=== PATIENT | female | born 1995 | race Caucasian/White ===

== ENCOUNTER 2022-06-06 09:26 | Emergency (ER) | payer OTHER ==
[2022-06-06 10:51] LABS: BASOPHILS % (AUTO) 0.6 %; EOSINOPHILS # (AUTO) 0.2 10^3/uL (0.0-0.7); EOSINOPHILS % (AUTO) 2.1 %; HCT - HEMATOCRIT 42.8 % (37.0-47.0); HGB - HEMOGLOBIN 13.6 g/dL (12.0-16.0); LYMPHOCYTES # (AUTO) 1.9 10^3/uL (1.5-3.5); LYMPHOCYTES % (AUTO) 26.2 %; MEAN CORPUSCULAR HEMOGLOBIN 28.2 pg (27.0-31.0); MEAN CORPUSCULAR HGB CONC 31.8 g/dL (32.0-36.0); MEAN CORPUSCULAR VOLUME 88.8 fL (81.0-99.0); MEAN PLATELET VOLUME 9.5 fL (7.9-10.8); MONOCYTES # (AUTO) 0.5 10^3/uL (0.0-1.0); MONOCYTES % (AUTO) 6.2 %; NEUTROPHILS # (AUTO) 4.7 10^3/uL (1.5-6.6); NEUTROPHILS % (AUTO) 64.8 %; PLT - PLATELET COUNT 277 10^3/uL (130-450); RED BLOOD COUNT 4.82 10^6/uL (4.20-5.40); RED CELL DISTRIBUTION WIDTH 11.7 % (12.0-15.0); WHITE BLOOD COUNT 7.2 x10^3/uL (4.8-10.8)
[2022-06-06 11:06] LABS: ALBUMIN 4.5 g/dL (3.2-5.5); ALBUMIN/GLOBULIN RATIO 1.5 (1.0-2.2); BILIRUBIN,TOTAL 0.5 mg/dL (0.2-1.0); CALCIUM 9.5 mg/dL (8.5-10.3); CREATININE 0.7 mg/dL (0.4-1.0); POTASSIUM 3.8 mmol/L (3.5-5.0); TOTAL PROTEIN 7.5 g/dL (6.7-8.2)
[2022-06-06] MEDS ORDERED: SUMAtriptan 6 MG/0.5 ML VIAL SUBQ STA (11:42)
--- NOTE | 2022-06-06 11:44 | ED Physician Documentation ---
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 Started Tuesday afternoon. She is never had this before. It is associated with a mild headache, milder than her usual migraines. She notes no nausea with this. No light sensitivity. She had numbness and tingling of all 4 extremities which is better now. There is no asymmetry to any of those symptoms. 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 She has noted some very dry skin and scalp lately. Last thyroid testing in September of this year and normal. Review of Systems Constitutional: denies: Fever, Chills, Fatigue Eyes: denies: Loss of vision, Decreased vision, Photophobia, Discharge, Irritation Nose: denies: Rhinorrhea / runny nose, Congestion Cardiac: denies: Chest pain / pressure, Palpitations Respiratory: denies: Dyspnea, Cough GI: denies: Abdominal Pain, Nausea, Diarrhea PD PAST MEDICAL HISTORY - Allergies Allergies/Adverse Reactions: Allergies Allergy/AdvReac Type Severity Reaction Status Date / Time Penicillins Allergy Rash Verified 06/06/22 09:39 PD ED PE NORMAL - Vitals Vital signs reviewed: Yes - General General: Alert and oriented X 3, No acute distress - HEENT HEENT: PERRL, EOMI - Neck Neck: Supple, no meningeal sign, No bony TTP - Cardiac Cardiac: RRR, No murmur - Respiratory Respiratory: No respiratory distress, Clear bilaterally - Abdomen Abdomen: Non tender - Back Back: No CVA TTP, No spinal TTP - Derm Derm: Normal color, Warm and dry - Extremities Extremities: No deformity, No tenderness to palpate, Normal ROM s pain, No edema, No calf tenderness / cord - Neuro Neuro: Alert and oriented X 3, 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, No motor deficit, No sensory deficit, Other (NIH stroke scale of 0) Eye Opening: Spontaneous Motor: Obeys Commands Verbal: Oriented GCS Score: 15 Results - Vitals Vitals: Vital Signs - 24 hr 06/06/22 06/06/22 09:36 11:39 Temperature 36.4 C L Heart Rate 78 82 Respiratory 16 18 Rate Blood Pressure 112/68 104/55 L O2 Saturation 100 100 Oxygen O2 Source Room air - EKG (time done) 1223 Rate: Rate (enter#) (61) Rhythm: NSR [place]: Normal Intervals: Normal [place] QRS: Normal Ischemia: Normal ST segments - Labs Labs: Laboratory Tests 06/06/22 06/06/22 06/06/22 10:26 10:26 10:26 WBC 7.2 RBC 4.82 Hgb 13.6 Hct 42.8 MCV 88.8 MCH 28.2 MCHC 31.8 L RDW 11.7 L Plt Count 277 MPV 9.5 Neut # (Auto) 4.7 Lymph # (Auto) 1.9 [place] # (Auto) 0.5 Eos # (Auto) 0.2 Baso # (Auto) 0.0 Absolute Nucleated RBC 0.00 Nucleated RBC % 0.0 Sodium 140 Potassium 3.8 Chloride 109 Carbon Dioxide 23 Anion Gap 8.0 BUN 8 Creatinine 0.7 Estimated GFR (MDRD) 101 Glucose 96 Calcium 9.5 Total Bilirubin 0.5 AST 17 ALT 22 Alkaline Phosphatase 69 Troponin I High Sens < 2.3 L Total Protein 7.5 Albumin 4.5 Globulin 3.0 Albumin/Globulin Ratio 1.5 Lipase 30 TSH Urine HCG, Qual 06/06/22 06/06/22 10:46 11:00 WBC RBC Hgb Hct MCV MCH MCHC RDW Plt Count MPV Neut # (Auto) Lymph # (Auto) [place] # (Auto) Eos # (Auto) Baso # (Auto) Absolute Nucleated RBC Nucleated RBC % Sodium Potassium Chloride Carbon Dioxide Anion Gap BUN Creatinine Estimated GFR (MDRD) Glucose Calcium Total Bilirubin AST ALT Alkaline Phosphatase Troponin I High Sens Total Protein Albumin Globulin Albumin/Globulin Ratio Lipase TSH 1.22 Urine HCG, Qual NEGATIVE PD MEDICAL DECISION MAKING - ED course ED course: 27-year-old with history of migraines presents with mild headache, disequilibrium, shakiness, and other odd nonlateralizing complaints. This is in the setting of a fairly normal exam. CT imaging of the head was normal as is lab work including thyroid function. We trialed some Imitrex thinking this may be an atypical migraine and on recheck at 12:45 PM she was feeling much better albeit not quite 100% relieved. She was able to walk normally without ataxia and unassisted. Departure - Departure Disposition: 01 Home, Self Care Clinical Impression: Vestibular migraine Condition: Good Record reviewed to determine appropriate education?: Yes Instructions: ED Headache Migraine Comments: As discussed, the negative work-up, normal exam, and response to Imitrex would suggest that this was an atypical vestibular migraine. Return for new or worsening symptoms, follow-up with your primary care physician, next available appointment.
[2022-06-06 11:58] LABS: HCG UR QUAL NEGATIVE
--- NOTE | 2022-06-06 12:39 | CT Report ---
PROCEDURE: CT brain without contrast INDICATIONS: dizziness TECHNIQUE: Noncontrast 4.5 mm thick angled axial sections acquired from the foramen magnum to the vertex. For r adiation dose reduction, the following was used: automated exposure control, adjustment of mA and/or kV according to patient size. COMPARISON: None. FINDINGS: Image quality: Excellent. CSF spaces: Basal cisterns are patent. No extra-axial fluid collections. Ventricles are normal in size and shape. Brain: No midline shift. No intracranial masses or hemorrhage. Disla-white matter interface is norm al. Skull and face: Calvarium and visualized facial bones are intact, without suspicious lesions. Sinuses: Visualized sinuses and mastoids are clear. IMPRESSION: Normal CT of the brain Reviewed by: Jim Staley MD on 06/06/2022 11:38 AM [facility] Approved by: Jim Staley MD on 06/06/2022 11:38 AM [facility] Station ID: [id number]
[2022-06-06 13:11] VITALS: BP 107/58
== END 2022-06-06 13:10 | disposition home or self-care (01) ==
LOC: ED 09:26
DX: G43.809 Other migraine, not intractable, without status migrainosus (principal)
CPT/HCPCS: 36415; 80053; 81025; 83690; 84443; 84484; 85025; 93005; 96372; 99282; 99284

== ENCOUNTER 2022-06-11 13:18 | Emergency (ER) | payer OTHER ==
[2022-06-11] MEDS ORDERED: CHERRY SYRUP 10 ML UDC PO ONE (13:48)
[2022-06-11] MEDS ORDERED: PSEUDOEPHEDRINE 30 MG TABLET PO STA (13:48)
[2022-06-11] MEDS ORDERED: DEXAMETHASONE 10 MG/ML VIAL PO STA (13:48)
--- NOTE | 2022-06-11 13:53 | ED Physician Documentation ---
History of Present Illness - Stated complaint Stated Complaint: EXTREME DIZZINESS - Chief complaint Chief Complaint: Neuro - History obtained from History obtained from: Patient, Family - History of Present Illness Timing: Today Pain level max: 0 Pain level now: 0 - Additonal information Additional information: Patient is a 27-year-old female who presents to the emergency department complaining of feeling dizzy and off balance. This been ongoing for about the past week. She was seen here previously for similar symptoms. No acute findings on laboratory testing or head CT. Her symptoms improved with Imitrex, thought to be possible vestibular migraine. Patient does have a history of migraines. She states that the feeling of disequilibrium has not improved. She was also placed on meclizine, Valium and her doctor started her on Lexapro yesterday for anxiety. She denies any trauma. No recent illnesses. She does state that her ears feel "full". She feels that she can feel her ears full down to her throat. No chest pain. No shortness of breath. No nausea or vomiting. She had a headache last night, took Imitrex and the headache went away, but the disequilibrium has persisted. She also feels tingling in her bilateral hands and feet. No focal numbness or weakness. No difficulty with speech. No vision changes. Review of Systems Constitutional: denies: Fever, Chills Respiratory: denies: Cough GI: denies: Vomiting, Diarrhea Skin: denies: Rash Musculoskeletal: denies: Neck pain, Back pain Neurologic: denies: Headache PD PAST MEDICAL HISTORY - Past Medical History Past Medical History: No - Past Surgical History Past Surgical History: No - Present Medications Home Medications: Ambulatory Orders Medication Instructions Recorded Confirmed Cetirizine HCl/Pseudoephedrine 1 each PO BID PRN #30 tab 06/11/22 [Zyrtec-D Tablet] predniSONE [Deltasone] 40 mg PO DAILY #10 tablet 06/11/22 - Allergies Allergies/Adverse Reactions: Allergies Allergy/AdvReac Type Severity Reaction Status Date / Time Penicillins Allergy Rash Verified 06/06/22 09:39 - Living Situation Living Situation: reports: With family Living Arrangement: reports: At home - Social History Does the pt smoke?: No Does the pt have substance abuse?: No - Family History Family history: reports: Non contributory PD ED PE NORMAL - Vitals Vital signs reviewed: Yes - General General: Alert and oriented X 3, No acute distress, Well developed/nourished - HEENT HEENT: Atraumatic, PERRL, EOMI, Ears normal, Moist mucous membranes, Pharynx benign - Neck Neck: Supple, no meningeal sign, No bony TTP - Cardiac Cardiac: RRR, No murmur, Strong equal pulses - Respiratory Respiratory: No respiratory distress, Clear bilaterally - Abdomen Abdomen: Soft, Non tender, Non distended - Back Back: No CVA TTP, No spinal TTP - Derm Derm: Warm and dry - Extremities Extremities: No edema, No calf tenderness / cord - Neuro Neuro: Alert and oriented X 3, 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 Normal [id number]. Negative Romberg. No nystagmus. Negative Hallpike) Eye Opening: Spontaneous Motor: Obeys Commands Verbal: Oriented GCS Score: 15 - Psych Psych: Normal mood, Normal affect Results - Vitals Vitals: Vital Signs - 24 hr 06/11/22 06/11/22 13:24 15:00 Temperature 36.5 C Heart Rate 73 Heart Rate [ 81 Standing] Heart Rate [ 67 Supine] Respiratory 18 Rate Blood Pressure 117/59 L Blood Pressure 116/80 [Standing] Blood Pressure 116/77 [Supine] O2 Saturation 100 Oxygen O2 Source Room air - Labs Labs: Laboratory Tests 06/11/22 06/11/22 06/11/22 13:58 13:58 13:58 WBC 6.4 RBC 4.76 Hgb 13.6 Hct 42.0 MCV 88.2 MCH 28.6 MCHC 32.4 RDW 11.5 L Plt Count 278 MPV 9.7 Neut # (Auto) 3.2 Lymph # (Auto) 2.4 [place] # (Auto) 0.5 Eos # (Auto) 0.2 Baso # (Auto) 0.1 Absolute Nucleated RBC 0.00 Nucleated RBC % 0.0 Sodium 133 L Potassium 3.9 Chloride 100 L Carbon Dioxide 25 Anion Gap 8.0 BUN 14 Creatinine 0.8 Estimated GFR (MDRD) 87 L Glucose 90 Calcium 9.3 Phosphorus 4.3 Magnesium 1.9 Total Bilirubin 0.4 AST 16 ALT 20 Alkaline Phosphatase 72 Total Protein 7.1 Albumin 4.3 Globulin 2.8 Albumin/Globulin Ratio 1.5 TSH 0.63 Urine Color Urine Clarity Urine pH Ur Specific [place] Urine Protein Urine Glucose (UA) Urine Ketones Urine Occult Blood Urine Nitrite Urine Bilirubin Urine Urobilinogen Ur Leukocyte Esterase Ur Microscopic Review Urine Culture Comments Urine HCG, Qual Urine Opiates Screen Ur Oxycodone Screen Urine Methadone Screen Ur Propoxyphene Screen Ur Barbiturates Screen Ur Tricyclics Screen Ur Phencyclidine Scrn Ur Amphetamine Screen U Methamphetamines Scrn U Benzodiazepines Scrn Urine Cocaine Screen U Cannabinoids Screen 06/11/22 06/11/22 14:10 14:10 WBC RBC Hgb Hct MCV MCH MCHC RDW Plt Count MPV Neut # (Auto) Lymph # (Auto) [place] # (Auto) Eos # (Auto) Baso # (Auto) Absolute Nucleated RBC Nucleated RBC % Sodium Potassium Chloride Carbon Dioxide Anion Gap BUN Creatinine Estimated GFR (MDRD) Glucose Calcium Phosphorus Magnesium Total Bilirubin AST ALT Alkaline Phosphatase Total Protein Albumin Globulin Albumin/Globulin Ratio TSH Urine Color YELLOW Urine Clarity CLEAR Urine pH 6.0 Ur Specific [place] 1.025 Urine Protein NEGATIVE Urine Glucose (UA) NEGATIVE Urine Ketones NEGATIVE Urine Occult Blood NEGATIVE Urine Nitrite NEGATIVE Urine Bilirubin NEGATIVE Urine Urobilinogen 0.2 (NORMAL) Ur Leukocyte Esterase NEGATIVE Ur Microscopic Review NOT INDICATED Urine Culture Comments NOT INDICATED Urine HCG, Qual NEGATIVE Urine Opiates Screen NEGATIVE Ur Oxycodone Screen NEGATIVE Urine Methadone Screen NEGATIVE Ur Propoxyphene Screen NEGATIVE Ur Barbiturates Screen NEGATIVE Ur Tricyclics Screen NEGATIVE Ur Phencyclidine Scrn NEGATIVE Ur Amphetamine Screen NEGATIVE U Methamphetamines Scrn NEGATIVE U Benzodiazepines Scrn POSITIVE H Urine Cocaine Screen NEGATIVE U Cannabinoids Screen NEGATIVE PD MEDICAL DECISION MAKING - ED course Complexity details: reviewed old records, reviewed results, re-evaluated patient, considered differential, d/w patient, d/w family ED course: Normal gait. Normal cerebellar test. Patient has symptoms that appear more consistent with disequilibrium than vertigo. MRI is unavailable today due to use of paving in front of the machine in the parking lot. Patient will likely need an MRI for further evaluation of her symptoms. Possible eustachian tube dysfunction as she does feel a fullness in her ears and throat. We will trial on pseudoephedrine, Zyrtec and dexamethasone. Patient will return tomorrow for MRI of the brain. No focal neurological deficits. Patient counseled regarding signs and symptoms for which I believe and urgent re-evaluation would be necessary. Patient with good understanding of and agreement to plan and is comfortable going home at this time This document was made in part using voice recognition software. While efforts are made to proofread this document, sound alike and grammatical errors may occur. Departure - Departure Disposition: 01 Home, Self Care Clinical Impression: Dysequilibrium Condition: Good Instructions: ED Dizziness [facility] Follow-Up: Vin Nelson ARNP [Primary Care Provider] - Prescriptions: predniSONE [Deltasone] 40 mg PO DAILY #10 tablet Cetirizine HCl/Pseudoephedrine [Zyrtec-D Tablet] 1 each PO BID PRN #30 tab PRN Reason: nasal congestion Comments: The cause of your symptoms is unclear today. Your symptoms seem more consistent with disequilibrium than true vertigo. It is recommended that you have an MRI tomorrow. Please return for this. As we discussed unfortunately the MRI is unavailable today. We will trial you on medication for your eustachian tubes and see if this helps your symptoms. Your prescriptions were sent to [facility] in [place]. Discharge Date/Time: 06/11/22 15:30
--- OUTSIDE RECORDS SUMMARY | 2022-06-11 13:53 | EXTERNAL MEDICAL SUMMARY RPT | Continuity of Care Document ---
:1995 Author Organization [facility] [address] [place] [address] Phone Care Team Providers Name Role Phone Jacquleine Chago Unavailable Unavailable Vin Nelson Unavailable Unavailable Allergies and Intolerances date description facility type (no date) [facility] (unknown) Encounters No information. Functional Status No information. Immunizations No information. Medications date description facility [id number] Sumatriptan [facility] [id number] Sumatriptan [facility] [id number] [facility] [id number] Escitalopram [facility] [id number] Meclizine [facility] Problems No information. Procedures date description facility +0000 MR abdomen wo/w [facility] Results/Labs test date author facility value unit interpret ation Result panel 1 (unknown) (no (unknown) (unknown) (no value) (units (unk nown) date) unknown) (unknown) (no (unknown) (unknown) [id number] (units (unkno wn) date) unknown) (unknown) (no (unknown) (unknown) 03/29/22 (units (unkno wn) date) unknown) (unknown) (no (unknown) (unknown) 12:18 (units (unkno wn) date) unknown) (unknown) (no (unknown) (unknown) Accompanied by: (units (unknown) date) Self / Same As unknown) Patient (unknown) (no (unknown) (unknown) Age/Sex: 26 / F (units (unknown) date) Date of Service: unknown) (unknown) (no (unknown) (unknown) Allergies (units (unkn own) date) unknown) (unknown) (no (unknown) (unknown) JARED Garcia (units ( unknown) date) [id number] unknown) (unknown) (no (unknown) (unknown) Attending Dr: (units ( unknown) date) Vin HUBER unknown) (unknown) (no (unknown) (unknown) BMI 24.5 (units (unkno wn) date) unknown) (unknown) (no (unknown) (unknown) Back pain, (units (unk nown) date) lumbosacral unknown) (unknown) (no (unknown) (unknown) Confirmed (units (unkn own) date) 03/29/22] unknown) (unknown) (no (unknown) (unknown) : 1995 (units (unknown) date) Acct:[id number] unknown) (unknown) (no (unknown) (unknown) Dept at (units (unkno wn) date) . unknown) (unknown) (no (unknown) (unknown) Documented By: (units (unknown) date) Vin Nelson unknown) 03/29/22 1216 (unknown) (no (unknown) (unknown) Draft (units (unkno wn) date) unknown) (unknown) (no (unknown) (unknown) Family Practice (units (unknown) date) Office Visit unknown) (unknown) (no (unknown) (unknown) [facility] unknown) (unknown) (no (unknown) (unknown) Health (units (unkno wn) date) Management unknown) reviewed with patient: Yes (unknown) (no (unknown) (unknown) Health (units (unkno wn) date) Management unknown) (unknown) (no (unknown) (unknown) Height 5 ft 10 (units (unknown) date) in unknown) (unknown) (no (unknown) (unknown) Intake Note: (units (u nknown) date) unknown) (unknown) (no (unknown) (unknown) Intake performed (units (unknown) date) by: unknown) Sara Horne (unknown) (no (unknown) (unknown) Intake (units (unkno wn) date) unknown) (unknown) (no (unknown) (unknown) Intake- Clincial (units (unknown) date) Staff unknown) (unknown) (no (unknown) (unknown) Loc: [facility] (units (unkno wn) date) unknown) (unknown) (no (unknown) (unknown) Low back pain (units ( unknown) date) unknown) (unknown) (no (unknown) (unknown) Medical History (units (unknown) date) (Updated 01/28/22 unknown) @ 00:01 by ) (unknown) (no (unknown) (unknown) Medications (units (un known) date) unknown) (unknown) (no (unknown) (unknown) 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 (units (unkno wn) date) unknown) (unknown) (no (unknown) (unknown) PFSH (units (unkno wn) date) unknown) (unknown) (no (unknown) (unknown) Patient: (units (unkno wn) date) Linda Moreno unknown) MR#: [id number] (unknown) (no (unknown) (unknown) Penicillins (units (un known) date) Adverse Reaction unknown) (Mild, Verified 03/29/22 12:17) (unknown) (no (unknown) (unknown) Reason For Visit (units (unknown) date) unknown) (unknown) (no (unknown) (unknown) Sciatic leg pain (units (unknown) date) unknown) (unknown) (no (unknown) (unknown) Signed By: (units (unk nown) date) unknown) (unknown) (no (unknown) (unknown) Smoking Status: (units (unknown) date) Never smoker unknown) (unknown) (no (unknown) (unknown) This note may (units ( unknown) date) have been all or unknown) partially generated using voice recognition (unknown) (no (unknown) (unknown) Tobacco + (units (unkn own) date) Substance Use unknown) (unknown) (no (unknown) (unknown) Tobacco Status (units (unknown) date) unknown) (unknown) (no (unknown) (unknown) Visit Reasons: (units (unknown) date) 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 (units (unknown) date) If there are any unknown) questions, please contact the Medical Records (unknown) (no (unknown) (unknown) may occur. (units (unk nown) date) Occasional unknown) wrong-word or 'sound-alike' substitutions may have (unknown) (no (unknown) (unknown) occurred due to (units (unknown) date) the inherent unknown) limitations of voice recognition software. Please (unknown) (no (unknown) (unknown) read the note (units ( unknown) date) carefully and unknown) recognize, using context, where these substitutions (unknown) (no (unknown) (unknown) software. (units (unkn own) date) Although every unknown) effort is made to edit content, mine car dispatcher errors (unknown) (no (unknown) (unknown) sumatriptan (units (unk nown) date) succinate 25 mg unknown) tablet (Imitrex) 25 mg PO ONCE PRN 03/29/22 [History Result panel 2 (unknown) (no (unknown) (unknown) (no value) (units (unk nown) date) unknown) (unknown) (no (unknown) (unknown) [id number] (units (unkno wn) date) unknown) (unknown) (no (unknown) (unknown) 03/29/22 (units (unkno wn) date) unknown) (unknown) (no (unknown) (unknown) 12:18 (units (unkno wn) date) unknown) (unknown) (no (unknown) (unknown) Accompanied by: (units (unknown) date) Self / Same As unknown) Patient (unknown) (no (unknown) (unknown) Age/Sex: 26 / F (units (unknown) date) Date of Service: unknown) (unknown) (no (unknown) (unknown) Allergies (units (unkn own) date) unknown) (unknown) (no (unknown) (unknown) JARED Garcia (units ( unknown) date) [id number] unknown) (unknown) (no (unknown) (unknown) Attending Dr: (units ( unknown) date) Vin HUBER unknown) (unknown) (no (unknown) (unknown) BMI 24.5 (units (unkno wn) date) unknown) (unknown) (no (unknown) (unknown) BP 114/62 (units (unkn own) date) unknown) (unknown) (no (unknown) (unknown) Back pain, (units (unk nown) date) lumbosacral unknown) (unknown) (no (unknown) (unknown) Blood Pressure (units (unknown) date) Location Lt unknown) brachial (unknown) (no (unknown) (unknown) Confirmed (units (unkn own) date) 03/29/22] unknown) (unknown) (no (unknown) (unknown) : 1995 (units (unknown) date) Acct:[id number] unknown) (unknown) (no (unknown) (unknown) Dept at (units (unkno wn) date) . unknown) (unknown) (no (unknown) (unknown) Documented By: (units (unknown) date) Vin Nelson unknown) 03/29/22 1216 (unknown) (no (unknown) (unknown) Draft (units (unkno wn) date) unknown) (unknown) (no (unknown) (unknown) Family Practice (units (unknown) date) Office Visit unknown) (unknown) (no (unknown) (unknown) [facility] unknown) (unknown) (no (unknown) (unknown) Health (units (unkno wn) date) Management unknown) reviewed with patient: Yes (unknown) (no (unknown) (unknown) Health (units (unkno wn) date) Management unknown) (unknown) (no (unknown) (unknown) Height 5 ft 10 (units (unknown) date) in unknown) (unknown) (no (unknown) (unknown) Intake Note: (units (u nknown) date) unknown) (unknown) (no (unknown) (unknown) Intake performed (units (unknown) date) by: unknown) Sara Horne (unknown) (no (unknown) (unknown) Intake (units (unkno wn) date) unknown) (unknown) (no (unknown) (unknown) Intake- Clincial (units (unknown) date) Staff unknown) (unknown) (no (unknown) (unknown) Loc: [facility] (units (unkno wn) date) unknown) (unknown) (no (unknown) (unknown) Low back pain (units ( unknown) date) unknown) (unknown) (no (unknown) (unknown) Medical History (units (unknown) date) (Updated 01/28/22 unknown) @ 00:01 by ) (unknown) (no (unknown) (unknown) Medications (units (un known) date) unknown) (unknown) (no (unknown) (unknown) 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 (units (unkno wn) date) unknown) (unknown) (no (unknown) (unknown) Oxygen Delivery (units (unknown) date) Method room air unknown) (unknown) (no (unknown) (unknown) PFSH (units (unkno wn) date) unknown) (unknown) (no (unknown) (unknown) Patient: (units (unkno wn) date) Linda Moreno R unknown) MR#: [id number] (unknown) (no (unknown) (unknown) Penicillins (units (un known) date) Adverse Reaction unknown) (Mild, Verified 03/29/22 12:17) (unknown) (no (unknown) (unknown) Position Sitting (units (unknown) date) unknown) (unknown) (no (unknown) (unknown) Pulse 76 (units (unkno wn) date) unknown) (unknown) (no (unknown) (unknown) Pulse Oximetry (units (unknown) date) (%) 99 unknown) (unknown) (no (unknown) (unknown) Pulse Source (units (u nknown) date) Monitor unknown) (unknown) (no (unknown) (unknown) Reason For Visit (units (unknown) date) unknown) (unknown) (no (unknown) (unknown) Respiration 16 (units (unknown) date) unknown) (unknown) (no (unknown) (unknown) Sciatic leg pain (units (unknown) date) unknown) (unknown) (no (unknown) (unknown) Signed By: (units (unk nown) date) unknown) (unknown) (no (unknown) (unknown) Smoking Status: (units (unknown) date) Never smoker unknown) (unknown) (no (unknown) (unknown) Temp 97.2 F L (units ( unknown) date) unknown) (unknown) (no (unknown) (unknown) Temp Source (units (un known) date) Temporal Artery unknown) Scan (unknown) (no (unknown) (unknown) This note may (units ( unknown) date) have been all or unknown) partially generated using voice recognition (unknown) (no (unknown) (unknown) Tobacco + (units (unkn own) date) Substance Use unknown) (unknown) (no (unknown) (unknown) Tobacco Status (units (unknown) date) unknown) (unknown) (no (unknown) (unknown) Visit Reasons: (units (unknown) date) 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 (units (unknown) date) If there are any unknown) questions, please contact the Medical Records (unknown) (no (unknown) (unknown) may occur. (units (unk nown) date) Occasional unknown) wrong-word or 'sound-alike' substitutions may have (unknown) (no (unknown) (unknown) occurred due to (units (unknown) date) the inherent unknown) limitations of voice recognition software. Please (unknown) (no (unknown) (unknown) read the note (units ( unknown) date) carefully and unknown) recognize, using context, where these substitutions (unknown) (no (unknown) (unknown) software. (units (unkn own) date) Although every unknown) effort is made to edit content, mine car dispatcher errors (unknown) (no (unknown) (unknown) sumatriptan (units (unk nown) date) succinate 25 mg unknown) tablet (Imitrex) 25 mg PO ONCE PRN 03/29/22 [History Result panel 3 (unknown) (no (unknown) (unknown) (no value) (units (unk nown) date) unknown) (unknown) (no (unknown) (unknown) [id number] (units (unkno wn) date) unknown) (unknown) (no (unknown) (unknown) 03/29/22 (units (unkno wn) date) unknown) (unknown) (no (unknown) (unknown) 12:18 (units (unkno wn) date) unknown) (unknown) (no (unknown) (unknown) Accompanied by: (units (unknown) date) Self / Same As unknown) Patient (unknown) (no (unknown) (unknown) Age/Sex: 26 / F (units (unknown) date) Date of Service: unknown) (unknown) (no (unknown) (unknown) Allergies (units (unkn own) date) unknown) (unknown) (no (unknown) (unknown) [place], [place] (units ( unknown) date) [id number] unknown) (unknown) (no (unknown) (unknown) Attending Dr: (units ( unknown) date) Vin HUBER unknown) (unknown) (no (unknown) (unknown) BMI 24.5 (units (unkno wn) date) unknown) (unknown) (no (unknown) (unknown) BP 114/62 (units (unkn own) date) unknown) (unknown) (no (unknown) (unknown) Back pain, (units (unk nown) date) lumbosacral unknown) (unknown) (no (unknown) (unknown) Blood Pressure (units (unknown) date) Location Lt unknown) brachial (unknown) (no (unknown) (unknown) Confirmed (units (unkn own) date) 03/29/22] unknown) (unknown) (no (unknown) (unknown) : 1995 (units (unknown) date) Acct:[id number] unknown) (unknown) (no (unknown) (unknown) Dept at (units (unkno wn) date) . unknown) (unknown) (no (unknown) (unknown) Documented By: (units (unknown) date) Vin Nelson unknown) 03/29/22 1216 (unknown) (no (unknown) (unknown) Draft (units (unkno wn) date) unknown) (unknown) (no (unknown) (unknown) Family Practice (units (unknown) date) Office Visit unknown) (unknown) (no (unknown) (unknown) [facility] ([facility] date[facility] unknown) (unknown) (no (unknown) (unknown) Health (units (unkno wn) date) Management unknown) reviewed with patient: Yes (unknown) (no (unknown) (unknown) Health (units (unkno wn) date) Management unknown) (unknown) (no (unknown) (unknown) Height 5 ft 10 (units (unknown) date) in unknown) (unknown) (no (unknown) (unknown) Intake Note: (units (u nknown) date) unknown) (unknown) (no (unknown) (unknown) Intake performed (units (unknown) date) by: unknown) Zeiler,Sara M (unknown) (no (unknown) (unknown) Intake (units (unkno wn) date) unknown) (unknown) (no (unknown) (unknown) Intake- Clincial (units (unknown) date) Staff unknown) (unknown) (no (unknown) (unknown) Loc: [facility] (units (unkno wn) date) unknown) (unknown) (no (unknown) (unknown) Low back pain (units ( unknown) date) unknown) (unknown) (no (unknown) (unknown) Medical History (units (unknown) date) (Updated 01/28/22 unknown) @ 00:01 by ) (unknown) (no (unknown) (unknown) Medications (units (un known) date) unknown) (unknown) (no (unknown) (unknown) 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 (units (unkno wn) date) unknown) (unknown) (no (unknown) (unknown) Oxygen Delivery (units (unknown) date) Method room air unknown) (unknown) (no (unknown) (unknown) PFSH (units (unkno wn) date) unknown) (unknown) (no (unknown) (unknown) Patient: (units (unkno wn) date) Linda Moreno unknown) MR#: [id number] (unknown) (no (unknown) (unknown) Penicillins (units (un known) date) Adverse Reaction unknown) (Mild, Verified 03/29/22 12:17) (unknown) (no (unknown) (unknown) Position Sitting (units (unknown) date) unknown) (unknown) (no (unknown) (unknown) Pulse 76 (units (unkno wn) date) unknown) (unknown) (no (unknown) (unknown) Pulse Oximetry (units (unknown) date) (%) 99 unknown) (unknown) (no (unknown) (unknown) Pulse Source (units (u nknown) date) Monitor unknown) (unknown) (no (unknown) (unknown) Reason For Visit (units (unknown) date) unknown) (unknown) (no (unknown) (unknown) Respiration 16 (units (unknown) date) unknown) (unknown) (no (unknown) (unknown) Sciatic leg pain (units (unknown) date) unknown) (unknown) (no (unknown) (unknown) Signed By: (units (unk nown) date) unknown) (unknown) (no (unknown) (unknown) Smoking Status: (units (unknown) date) Never smoker unknown) (unknown) (no (unknown) (unknown) Temp 97.2 F L (units ( unknown) date) unknown) (unknown) (no (unknown) (unknown) Temp Source (units (un known) date) Temporal Artery unknown) Scan (unknown) (no (unknown) (unknown) This note may (units ( unknown) date) have been all or unknown) partially generated using voice recognition (unknown) (no (unknown) (unknown) Tobacco + (units (unkn own) date) Substance Use unknown) (unknown) (no (unknown) (unknown) Tobacco Status (units (unknown) date) unknown) (unknown) (no (unknown) (unknown) Visit 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 (units (unknown) date) If there are any unknown) questions, please contact the Medical Records (unknown) (no (unknown) (unknown) may occur. (units (unk nown) date) Occasional unknown) wrong-word or 'sound-alike' substitutions may have (unknown) (no (unknown) (unknown) occurred due to (units (unknown) date) the inherent unknown) limitations of voice recognition software. Please (unknown) (no (unknown) (unknown) read the note (units ( unknown) date) carefully and unknown) recognize, using context, where these substitutions (unknown) (no (unknown) (unknown) software. (units (unkn own) date) Although every unknown) effort is made to edit content, mine car dispatcher errors (unknown) (no (unknown) (unknown) sumatriptan (units (unk nown) date) succinate 25 mg unknown) tablet (Imitrex) 25 mg PO ONCE PRN 03/29/22 [History Result panel 4 (unknown) (no (unknown) (unknown) (no value) (units (unk nown) date) unknown) (unknown) (no (unknown) (unknown) [id number] (units (unkno wn) date) unknown) (unknown) (no (unknown) (unknown) 03/29/22 (units (unkno wn) date) unknown) (unknown) (no (unknown) (unknown) 12:18 (units (unkno wn) date) unknown) (unknown) (no (unknown) (unknown) Accompanied by: (units (unknown) date) Self / Same As unknown) Patient (unknown) (no (unknown) (unknown) Age/Sex: 26 / F (units (unknown) date) Date of Service: unknown) (unknown) (no (unknown) (unknown) Allergies (units (unkn own) date) unknown) (unknown) (no (unknown) (unknown) [place], [place] (units ( unknown) date) [id number] unknown) (unknown) (no (unknown) (unknown) Attending Dr: (units ( unknown) date) Vin HUBER unknown) (unknown) (no (unknown) (unknown) BMI 24.5 (units (unkno wn) date) unknown) (unknown) (no (unknown) (unknown) BP 114/62 (units (unkn own) date) unknown) (unknown) (no (unknown) (unknown) Back pain, (units (unk nown) date) lumbosacral unknown) (unknown) (no (unknown) (unknown) Blood Pressure (units (unknown) date) Location Lt unknown) brachial (unknown) (no (unknown) (unknown) Chief Complaint (units (unknown) date) unknown) (unknown) (no (unknown) (unknown) Chief Complaint: (units (unknown) date) establish care unknown) (unknown) (no (unknown) (unknown) Confirmed (units (unkn own) date) 03/29/22] unknown) (unknown) (no (unknown) (unknown) : 1995 (units (unknown) date) Acct:[id number] unknown) (unknown) (no (unknown) (unknown) Dept at (units (unkno wn) date) . unknown) (unknown) (no (unknown) (unknown) Details: (units (unkno wn) date) unknown) (unknown) (no (unknown) (unknown) Documented By: (units (unknown) date) Vin Nelson unknown) 03/29/22 1216 (unknown) (no (unknown) (unknown) Draft (units (unkno wn) date) unknown) (unknown) (no (unknown) (unknown) Family Practice (units (unknown) date) Office Visit unknown) (unknown) (no (unknown) (unknown) [facility] ([facility] date[facility] unknown) (unknown) (no (unknown) (unknown) HPI (units (unkno wn) date) unknown) (unknown) (no (unknown) (unknown) Health (units (unkno wn) date) Management unknown) reviewed with patient: Yes (unknown) (no (unknown) (unknown) Health (units (unkno wn) date) Management unknown) (unknown) (no (unknown) (unknown) Height 177.8 cm (units (unknown) date) unknown) (unknown) (no (unknown) (unknown) Intake Note: (units (u nknown) date) unknown) (unknown) (no (unknown) (unknown) Intake performed (units (unknown) date) by: unknown) Sara Horne (unknown) (no (unknown) (unknown) Intake (units (unkno wn) date) unknown) (unknown) (no (unknown) (unknown) Intake- Clincial (units (unknown) date) Staff unknown) (unknown) (no (unknown) (unknown) Loc: [facility] (units (unkno wn) date) unknown) (unknown) (no (unknown) (unknown) Low back pain (units ( unknown) date) unknown) (unknown) (no (unknown) (unknown) Medical History (units (unknown) date) (Updated 01/28/22 unknown) @ 00:01 by ) (unknown) (no (unknown) (unknown) Medications (units (un known) date) unknown) (unknown) (no (unknown) (unknown) 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 (units (unkno wn) date) unknown) (unknown) (no (unknown) (unknown) Oxygen Delivery (units (unknown) date) Method room air unknown) (unknown) (no (unknown) (unknown) PFSH (units (unkno wn) date) unknown) (unknown) (no (unknown) (unknown) Patient: (units (unkno wn) date) Linda Moreno unknown) MR#: [id number] (unknown) (no (unknown) (unknown) Penicillins (units (un known) date) Adverse Reaction unknown) (Mild, Verified 03/29/22 12:17) (unknown) (no (unknown) (unknown) Position Sitting (units (unknown) date) unknown) (unknown) (no (unknown) (unknown) Pulse 76 (units (unkno wn) date) unknown) (unknown) (no (unknown) (unknown) Pulse Oximetry (units (unknown) date) (%) 99 unknown) (unknown) (no (unknown) (unknown) Pulse Source (units (u nknown) date) Monitor unknown) (unknown) (no (unknown) (unknown) Reason For Visit (units (unknown) date) unknown) (unknown) (no (unknown) (unknown) Respiration 16 (units (unknown) date) unknown) (unknown) (no (unknown) (unknown) Sciatic leg pain (units (unknown) date) unknown) (unknown) (no (unknown) (unknown) Signed By: (units (unk nown) date) unknown) (unknown) (no (unknown) (unknown) Smoking Status: (units (unknown) date) Never smoker unknown) (unknown) (no (unknown) (unknown) Temp 97.2 F L (units ( unknown) date) unknown) (unknown) (no (unknown) (unknown) Temp Source (units (un known) date) Temporal Artery unknown) Scan (unknown) (no (unknown) (unknown) This note may (units ( unknown) date) have been all or unknown) partially generated using voice recognition (unknown) (no (unknown) (unknown) Tobacco + (units (unkn own) date) Substance Use unknown) (unknown) (no (unknown) (unknown) Tobacco Status (units (unknown) date) unknown) (unknown) (no (unknown) (unknown) 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 (units (un known) date) unknown) (unknown) (no (unknown) (unknown) dad had (units (unkno wn) date) esophageal ca. unknown) mom breast CA 57ish. (unknown) (no (unknown) (unknown) follicular (units (unk nown) date) nodule unknown) hyperplasia liver. micro bowel perf, (unknown) (no (unknown) (unknown) have occurred. (units (unknown) date) If there are any unknown) questions, please contact the Medical Records (unknown) (no (unknown) (unknown) may occur. (units (unk nown) date) Occasional unknown) wrong-word or 'sound-alike' substitutions may have (unknown) (no (unknown) (unknown) moved from [place]units (unk nown) date) [place] to here unknown) july. 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 (unknown) (no (unknown) (unknown) occurred due to (units (unknown) date) the inherent unknown) limitations of voice recognition software. Please (unknown) (no (unknown) (unknown) read the note (units ( unknown) date) carefully and unknown) recognize, using context, where these substitutions (unknown) (no (unknown) (unknown) software. (units (unkn own) date) Although every unknown) effort is made to edit content, mine car dispatcher errors (unknown) (no (unknown) (unknown) sumatriptan (units (unk nown) date) succinate 25 mg unknown) tablet (Imitrex) 25 mg PO ONCE PRN 03/29/22 [History (unknown) (no (unknown) (unknown) trying to get (units ( unknown) date) licensed. unknown) (unknown) (no (unknown) (unknown) will start (units (unk nown) date) colonoscopies unknown) earlier, breast MRI age 26. Result panel 5 (unknown) (no (unknown) (unknown) (no value) (units (unk nown) date) unknown) (unknown) (no (unknown) (unknown) [id number] (units (unkno wn) date) unknown) (unknown) (no (unknown) (unknown) 03/29/22 (units (unkno wn) date) unknown) (unknown) (no (unknown) (unknown) 12:18 (units (unkno wn) date) unknown) (unknown) (no (unknown) (unknown) Accompanied by: (units (unknown) date) Self / Same As unknown) Patient (unknown) (no (unknown) (unknown) Age/Sex: 26 / F (units (unknown) date) Date of Service: unknown) (unknown) (no (unknown) (unknown) Allergies (units (unkn own) date) unknown) (unknown) (no (unknown) (unknown) [place], [place] (units ( unknown) date) [id number] unknown) (unknown) (no (unknown) (unknown) Attending Dr: (units ( unknown) date) Vin HUBER unknown) (unknown) (no (unknown) (unknown) BMI 24.5 (units (unkno wn) date) unknown) (unknown) (no (unknown) (unknown) BP 114/62 (units (unkn own) date) unknown) (unknown) (no (unknown) (unknown) Back pain, (units (unk nown) date) lumbosacral unknown) (unknown) (no (unknown) (unknown) Blood Pressure (units (unknown) date) Location Lt unknown) brachial (unknown) (no (unknown) (unknown) Chief Complaint (units (unknown) date) unknown) (unknown) (no (unknown) (unknown) Chief Complaint: (units (unknown) date) establish care unknown) (unknown) (no (unknown) (unknown) Confirmed (units (unkn own) date) 03/29/22] unknown) (unknown) (no (unknown) (unknown) : 1995 (units (unknown) date) Acct:[id number] unknown) (unknown) (no (unknown) (unknown) Dept at (units (unkno wn) date) . unknown) (unknown) (no (unknown) (unknown) Details: (units (unkno wn) date) unknown) (unknown) (no (unknown) (unknown) Documented By: (units (unknown) date) Vin Nelson unknown) 03/29/22 1216 (unknown) (no (unknown) (unknown) Draft (units (unkno wn) date) unknown) (unknown) (no (unknown) (unknown) Family Practice (units (unknown) date) Office Visit unknown) (unknown) (no (unknown) (unknown) [facility] ([facility] unknown) (unknown) (no (unknown) (unknown) HPI (units (unkno wn) date) unknown) (unknown) (no (unknown) (unknown) Health Management (units (unknown) date) reviewed with unknown) patient: Yes (unknown) (no (unknown) (unknown) Health Management (units (unknown) date) unknown) (unknown) (no (unknown) (unknown) Height 177.8 cm (units (unknown) date) unknown) (unknown) (no (unknown) (unknown) Intake Note: (units (u nknown) date) unknown) (unknown) (no (unknown) (unknown) Intake performed (units (unknown) date) by: Sara Horne unknown) M (unknown) (no (unknown) (unknown) Intake (units (unkno wn) date) unknown) (unknown) (no (unknown) (unknown) Intake- Clincial (units (unknown) date) Staff unknown) (unknown) (no (unknown) (unknown) Loc: [facility] (units (unkno wn) date) unknown) (unknown) (no (unknown) (unknown) Low back pain (units ( unknown) date) unknown) (unknown) (no (unknown) (unknown) Medical History (units (unknown) date) (Updated 01/28/22 @ unknown) 00:01 by ) (unknown) (no (unknown) (unknown) Medications (units (un known) date) unknown) (unknown) (no (unknown) (unknown) 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 (unknown) (no (unknown) (unknown) Oxygen Delivery (units (unknown) date) Method room air unknown) (unknown) (no (unknown) (unknown) PFSH (units (unkno wn) date) unknown) (unknown) (no (unknown) (unknown) Patient: (units (unkno wn) date) Linda Moreno unknown) MR#: [id number] (unknown) (no (unknown) (unknown) Penicillins (units (un known) date) Adverse Reaction unknown) (Mild, Verified 03/29/22 12:17) (unknown) (no (unknown) (unknown) Position Sitting (units (unknown) date) unknown) (unknown) (no (unknown) (unknown) Pulse 76 (units (unkno wn) date) unknown) (unknown) (no (unknown) (unknown) Pulse Oximetry (%) (units (unknown) date) 99 unknown) (unknown) (no (unknown) (unknown) Pulse Source (units (u nknown) date) Monitor unknown) (unknown) (no (unknown) (unknown) Reason For Visit (units (unknown) date) unknown) (unknown) (no (unknown) (unknown) Respiration 16 (units (unknown) date) unknown) (unknown) (no (unknown) (unknown) Saw [facility] (units (unkno wn) date) Gastroenterology unknown) will get a liver mri for monitoring. (unknown) (no (unknown) (unknown) Sciatic leg pain (units (unknown) date) unknown) (unknown) (no (unknown) (unknown) Signed By: (units (unk nown) date) unknown) (unknown) (no (unknown) (unknown) Smoking Status: (units (unknown) date) Never smoker unknown) (unknown) (no (unknown) (unknown) Temp 97.2 F L (units ( unknown) date) unknown) (unknown) (no (unknown) (unknown) Temp Source (units (un known) date) Temporal Artery unknown) Scan (unknown) (no (unknown) (unknown) This note may have (units (unknown) date) been all or unknown) partially generated using voice recognition (unknown) (no (unknown) (unknown) Tobacco + (units (unkn own) date) Substance Use unknown) (unknown) (no (unknown) (unknown) Tobacco Status (units (unknown) date) unknown) (unknown) (no (unknown) (unknown) 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 (units (un known) date) unknown) (unknown) (no (unknown) (unknown) dad had esophageal (units (unknown) date) ca. mom breast CA unknown) 57ish. (unknown) (no (unknown) (unknown) follicular nodule (units (unknown) date) hyperplasia liver. unknown) micro bowel perf, (unknown) (no (unknown) (unknown) have occurred. If (units (unknown) date) there are any unknown) questions, please contact the Medical Records (unknown) (no (unknown) (unknown) may occur. (units (unk nown) date) Occasional unknown) wrong-word or 'sound-alike' substitutions may have (unknown) (no (unknown) (unknown) middle. (units (unkno wn) date) unknown) (unknown) (no (unknown) (unknown) moved from [place]units (unk nown) date) [place] to here unknown) july. 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 (unknown) (no (unknown) (unknown) occurred due to (units (unknown) date) the inherent unknown) limitations of voice recognition software. Please (unknown) (no (unknown) (unknown) read the note (units ( unknown) date) carefully and unknown) recognize, using context, where these substitutions (unknown) (no (unknown) (unknown) software. Although (units (unknown) date) every effort is unknown) made to edit content, mine car dispatcher errors (unknown) (no (unknown) (unknown) sometimes heavy, (units (unknown) date) sometimes not. 50 unknown) dday, 37 day, 31 day. pain typically in the (unknown) (no (unknown) (unknown) sumatriptan (units (unk nown) date) succinate 25 mg unknown) tablet (Imitrex) 25 mg PO ONCE PRN 03/29/22 [History (unknown) (no (unknown) (unknown) trying to get (units ( unknown) date) licensed. unknown) (unknown) (no (unknown) (unknown) until about 3 (units ( unknown) date) months ago: sharp unknown) pains before and after but not during menses. (unknown) (no (unknown) (unknown) went off of MARYLIN (units (unknown) date) pill 9 years, iud unknown) mirena until January 2021, horrible pain. Normal (unknown) (no (unknown) (unknown) will start (units (unk nown) date) colonoscopies unknown) earlier, breast MRI age 26. LOOK INTO THIS AND Result panel 6 (unknown) (no (unknown) (unknown) (no value) (units (unk nown) date) unknown) (unknown) (no (unknown) (unknown) (1) Dysmenorrhea: (units (unknown) date) unknown) (unknown) (no (unknown) (unknown) [id number] (units (unkno wn) date) unknown) (unknown) (no (unknown) (unknown) 03/29/22 (units (unkno wn) date) unknown) (unknown) (no (unknown) (unknown) 12:18 (units (unkno wn) date) unknown) (unknown) (no (unknown) (unknown) Accompanied by: (units (unknown) date) Self / Same As unknown) Patient (unknown) (no (unknown) (unknown) Age/Sex: 26 / F (units (unknown) date) Date of Service: unknown) (unknown) (no (unknown) (unknown) Allergies (units (unkn own) date) unknown) (unknown) (no (unknown) (unknown) [place], [place] (units ( unknown) date) [id number] unknown) (unknown) (no (unknown) (unknown) Assessment + Plan (units (unknown) date) unknown) (unknown) (no (unknown) (unknown) Attending Dr: (units ( unknown) date) Vin HUBER unknown) (unknown) (no (unknown) (unknown) BMI 24.5 (units (unkno wn) date) unknown) (unknown) (no (unknown) (unknown) BP 114/62 (units (unkn own) date) unknown) (unknown) (no (unknown) (unknown) Back pain, (units (unk nown) date) lumbosacral unknown) (unknown) (no (unknown) (unknown) Blood Pressure (units (unknown) date) Location Lt unknown) brachial (unknown) (no (unknown) (unknown) Chief Complaint (units (unknown) date) unknown) (unknown) (no (unknown) (unknown) Chief Complaint: (units (unknown) date) establish care unknown) (unknown) (no (unknown) (unknown) Confirmed (units (unkn own) date) 03/29/22] unknown) (unknown) (no (unknown) (unknown) : 1995 (units (unknown) date) Acct:[id number] unknown) (unknown) (no (unknown) (unknown) Dept at (units (unkno wn) date) . unknown) (unknown) (no (unknown) (unknown) Details: (units (unkno wn) date) unknown) (unknown) (no (unknown) (unknown) Documented By: (units (unknown) date) Vin Nelson unknown) 03/29/22 1216 (unknown) (no (unknown) (unknown) Draft (units (unkno wn) date) unknown) (unknown) (no (unknown) (unknown) Family Practice (units (unknown) date) Office Visit unknown) (unknown) (no (unknown) (unknown) [facility] ([facility]) (unknown) (no (unknown) (unknown) HPI (units (unkno wn) date) unknown) (unknown) (no (unknown) (unknown) Health Management (units (unknown) date) reviewed with unknown) patient: Yes (unknown) (no (unknown) (unknown) Health Management (units (unknown) date) unknown) (unknown) (no (unknown) (unknown) Height 177.8 cm (units (unknown) date) unknown) (unknown) (no (unknown) (unknown) Intake Note: (units (u nknown) date) unknown) (unknown) (no (unknown) (unknown) Intake performed (units (unknown) date) by: Sara Horne unknown) M (unknown) (no (unknown) (unknown) Intake (units (unkno wn) date) unknown) (unknown) (no (unknown) (unknown) Intake- Clincial (units (unknown) date) Staff unknown) (unknown) (no (unknown) (unknown) Loc: [facility] (units (unkno wn) date) unknown) (unknown) (no (unknown) (unknown) Low back pain (units ( unknown) date) unknown) (unknown) (no (unknown) (unknown) Medical History (units (unknown) date) (Updated 01/28/22 @ unknown) 00:01 by ) (unknown) (no (unknown) (unknown) Medications (units (un known) date) unknown) (unknown) (no (unknown) (unknown) 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 (unknown) (no (unknown) (unknown) Orders: (units (unkno wn) date) unknown) (unknown) (no (unknown) (unknown) Oxygen Delivery (units (unknown) date) Method room air unknown) (unknown) (no (unknown) (unknown) PFSH (units (unkno wn) date) unknown) (unknown) (no (unknown) (unknown) Patient: (units (unkno wn) date) Linda Moreno unknown) MR#: [id number] (unknown) (no (unknown) (unknown) Penicillins (units (un known) date) Adverse Reaction unknown) (Mild, Verified 03/29/22 12:17) (unknown) (no (unknown) (unknown) Position Sitting (units (unknown) date) unknown) (unknown) (no (unknown) (unknown) Pulse 76 (units (unkno wn) date) unknown) (unknown) (no (unknown) (unknown) Pulse Oximetry (%) (units (unknown) date) 99 unknown) (unknown) (no (unknown) (unknown) Pulse Source (units (u nknown) date) Monitor unknown) (unknown) (no (unknown) (unknown) Reason For Visit (units (unknown) date) unknown) (unknown) (no (unknown) (unknown) Referral (units (unkno wn) date) Gynecology N94.6 - unknown) Dysmenorrhea, unspecified (unknown) (no (unknown) (unknown) Referrals (units (unkn own) date) unknown) (unknown) (no (unknown) (unknown) Respiration 16 (units (unknown) date) unknown) (unknown) (no (unknown) (unknown) Saw [facility] (units (unkno wn) date) Gastroenterology unknown) will get a liver mri for monitoring. (unknown) (no (unknown) (unknown) Sciatic leg pain (units (unknown) date) unknown) (unknown) (no (unknown) (unknown) Signed By: (units (unk nown) date) unknown) (unknown) (no (unknown) (unknown) Smoking Status: (units (unknown) date) Never smoker unknown) (unknown) (no (unknown) (unknown) Temp 97.2 F L (units ( unknown) date) unknown) (unknown) (no (unknown) (unknown) Temp Source (units (un known) date) Temporal Artery unknown) Scan (unknown) (no (unknown) (unknown) This note may have (units (unknown) date) been all or unknown) partially generated using voice recognition (unknown) (no (unknown) (unknown) Tobacco + (units (unkn own) date) Substance Use unknown) (unknown) (no (unknown) (unknown) Tobacco Status (units (unknown) date) unknown) (unknown) (no (unknown) (unknown) US will be done in (units (unknown) date) [place] Sep[place] unknown) will take report to Aparna Holder (unknown) (no (unknown) (unknown) 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 (units (un known) date) unknown) (unknown) (no (unknown) (unknown) dad had esophageal (units (unknown) date) ca. mom breast CA unknown) 57ish. (unknown) (no (unknown) (unknown) follicular nodule (units (unknown) date) hyperplasia liver. unknown) micro bowel perf, (unknown) (no (unknown) (unknown) have occurred. If (units (unknown) date) there are any unknown) questions, please contact the Medical Records (unknown) (no (unknown) (unknown) may occur. (units (unk nown) date) Occasional unknown) wrong-word or 'sound-alike' substitutions may have (unknown) (no (unknown) (unknown) middle. (units (unkno wn) date) unknown) (unknown) (no (unknown) (unknown) moved from [place]units (unk nown) date) [place] to here unknown) july. 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 (unknown) (no (unknown) (unknown) occurred due to (units (unknown) date) the inherent unknown) limitations of voice recognition software. Please (unknown) (no (unknown) (unknown) read the note (units ( unknown) date) carefully and unknown) recognize, using context, where these substitutions (unknown) (no (unknown) (unknown) software. Although (units (unknown) date) every effort is unknown) made to edit content, mine car dispatcher errors (unknown) (no (unknown) (unknown) sometimes heavy, (units (unknown) date) sometimes not. 50 unknown) dday, 37 day, 31 day. pain typically in the (unknown) (no (unknown) (unknown) sumatriptan (units (unk nown) date) succinate 25 mg unknown) tablet (Imitrex) 25 mg PO ONCE PRN 03/29/22 [History (unknown) (no (unknown) (unknown) trying to get (units ( unknown) date) licensed. unknown) (unknown) (no (unknown) (unknown) until about 3 (units ( unknown) date) months ago: sharp unknown) pains before and after but not during menses. (unknown) (no (unknown) (unknown) went off of MARYLIN (units (unknown) date) pill 9 years, iud unknown) mirena until January 2021, horrible pain. Normal (unknown) (no (unknown) (unknown) will start (units (unk nown) date) colonoscopies unknown) earlier, breast MRI age 26. LOOK INTO THIS AND Result panel 7 (unknown) (no (unknown) (unknown) (no value) (units (unk nown) date) unknown) (unknown) (no (unknown) (unknown) (1) Dysmenorrhea: (units (unknown) date) unknown) (unknown) (no (unknown) (unknown) [id number] (units (unkno wn) date) unknown) (unknown) (no (unknown) (unknown) 03/29/22 (units (unkno wn) date) unknown) (unknown) (no (unknown) (unknown) 12:18 (units (unkno wn) date) unknown) (unknown) (no (unknown) (unknown) Accompanied by: (units (unknown) date) Self / Same As unknown) Patient (unknown) (no (unknown) (unknown) Age/Sex: 26 / F (units (unknown) date) Date of Service: unknown) (unknown) (no (unknown) (unknown) Allergies (units (unkn own) date) unknown) (unknown) (no (unknown) (unknown) JARED Garcia (units ( unknown) date) [id number] unknown) (unknown) (no (unknown) (unknown) Assessment + Plan (units (unknown) date) unknown) (unknown) (no (unknown) (unknown) Attending Dr: (units ( unknown) date) Vin HUBER unknown) (unknown) (no (unknown) (unknown) BMI 24.5 (units (unkno wn) date) unknown) (unknown) (no (unknown) (unknown) BP 114/62 (units (unkn own) date) unknown) (unknown) (no (unknown) (unknown) Back pain, (units (unk nown) date) lumbosacral unknown) (unknown) (no (unknown) (unknown) Blood Pressure (units (unknown) date) Location Lt unknown) brachial (unknown) (no (unknown) (unknown) Chief Complaint (units (unknown) date) unknown) (unknown) (no (unknown) (unknown) Chief Complaint: (units (unknown) date) establish care unknown) (unknown) (no (unknown) (unknown) Confirmed (units (unkn own) date) 03/29/22] unknown) (unknown) (no (unknown) (unknown) : 1995 (units (unknown) date) Acct:[id number] unknown) (unknown) (no (unknown) (unknown) Dept at (units (unkno wn) date) . unknown) (unknown) (no (unknown) (unknown) Details: (units (unkno wn) date) unknown) (unknown) (no (unknown) (unknown) Documented By: (units (unknown) date) Vin Nelson unknown) 03/29/22 1216 (unknown) (no (unknown) (unknown) Draft (units (unkno wn) date) unknown) (unknown) (no (unknown) (unknown) Family Practice (units (unknown) date) Office Visit unknown) (unknown) (no (unknown) (unknown) [facility] ([facility]) (unknown) (no (unknown) (unknown) HPI (units (unkno wn) date) unknown) (unknown) (no (unknown) (unknown) Health Management (units (unknown) date) reviewed with unknown) patient: Yes (unknown) (no (unknown) (unknown) Health Management (units (unknown) date) unknown) (unknown) (no (unknown) (unknown) Height 5 ft 10 in (units (unknown) date) unknown) (unknown) (no (unknown) (unknown) Intake Note: (units (u nknown) date) unknown) (unknown) (no (unknown) (unknown) Intake performed (units (unknown) date) by: Sara Horne unknown) M (unknown) (no (unknown) (unknown) Intake (units (unkno wn) date) unknown) (unknown) (no (unknown) (unknown) Intake- Clincial (units (unknown) date) Staff unknown) (unknown) (no (unknown) (unknown) Loc: [facility] (units (unkno wn) date) unknown) (unknown) (no (unknown) (unknown) Low back pain (units ( unknown) date) unknown) (unknown) (no (unknown) (unknown) Medical History (units (unknown) date) (Updated 01/28/22 @ unknown) 00:01 by ) (unknown) (no (unknown) (unknown) Medications (units (un known) date) unknown) (unknown) (no (unknown) (unknown) 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 (unknown) (no (unknown) (unknown) Orders: (units (unkno wn) date) unknown) (unknown) (no (unknown) (unknown) Oxygen Delivery (units (unknown) date) Method room air unknown) (unknown) (no (unknown) (unknown) PFSH (units (unkno wn) date) unknown) (unknown) (no (unknown) (unknown) Patient: (units (unkno wn) date) Linda Moreno unknown) MR#: [id number] (unknown) (no (unknown) (unknown) Penicillins (units (un known) date) Adverse Reaction unknown) (Mild, Verified 03/29/22 12:17) (unknown) (no (unknown) (unknown) Position Sitting (units (unknown) date) unknown) (unknown) (no (unknown) (unknown) Pulse 76 (units (unkno wn) date) unknown) (unknown) (no (unknown) (unknown) Pulse Oximetry (%) (units (unknown) date) 99 unknown) (unknown) (no (unknown) (unknown) Pulse Source (units (u nknown) date) Monitor unknown) (unknown) (no (unknown) (unknown) Reason For Visit (units (unknown) date) unknown) (unknown) (no (unknown) (unknown) Referral (units (unkno wn) date) Gynecology N94.6 - unknown) Dysmenorrhea, unspecified (unknown) (no (unknown) (unknown) Referrals (units (unkn own) date) unknown) (unknown) (no (unknown) (unknown) Respiration 16 (units (unknown) date) unknown) (unknown) (no (unknown) (unknown) [place] [facility] (units (unkno wn) date) Gastroenterology unknown) will get a liver mri for monitoring. (unknown) (no (unknown) (unknown) Sciatic leg pain (units (unknown) date) unknown) (unknown) (no (unknown) (unknown) Signed By: (units (unk nown) date) unknown) (unknown) (no (unknown) (unknown) Smoking Status: (units (unknown) date) Never smoker unknown) (unknown) (no (unknown) (unknown) Temp 97.2 F L (units ( unknown) date) unknown) (unknown) (no (unknown) (unknown) Temp Source (units (un known) date) Temporal Artery unknown) Scan (unknown) (no (unknown) (unknown) This note may have (units (unknown) date) been all or unknown) partially generated using voice recognition (unknown) (no (unknown) (unknown) Tobacco + (units (unkn own) date) Substance Use unknown) (unknown) (no (unknown) (unknown) Tobacco Status (units (unknown) date) unknown) (unknown) (no (unknown) (unknown) US will be done [facility] (units (unknown) date) [place] [facility] will take report to Aparna Holder (unknown) (no (unknown) (unknown) Visit 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 (units (un known) date) unknown) (unknown) (no (unknown) (unknown) dad had esophageal (units (unknown) date) ca. mom breast CA unknown) 57ish. (unknown) (no (unknown) (unknown) follicular nodule (units (unknown) date) hyperplasia liver. unknown) micro bowel perf, (unknown) (no (unknown) (unknown) have occurred. If (units (unknown) date) there are any unknown) questions, please contact the Medical Records (unknown) (no (unknown) (unknown) may occur. (units (unk nown) date) Occasional unknown) wrong-word or 'sound-alike' substitutions may have (unknown) (no (unknown) (unknown) middle. (units (unkno wn) date) unknown) (unknown) (no (unknown) (unknown) moved from [place]units (unk nown) date) [place] to here unknown) july. 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 (unknown) (no (unknown) (unknown) occurred due to (units (unknown) date) the inherent unknown) limitations of voice recognition software. Please (unknown) (no (unknown) (unknown) read the note (units ( unknown) date) carefully and unknown) recognize, using context, where these substitutions (unknown) (no (unknown) (unknown) software. Although (units (unknown) date) every effort is unknown) made to edit content, mine car dispatcher errors (unknown) (no (unknown) (unknown) sometimes heavy, (units (unknown) date) sometimes not. 49 unknown) dday, 37 day, 31 day. pain typically in the (unknown) (no (unknown) (unknown) sumatriptan (units (unk nown) date) succinate 25 mg unknown) tablet (Imitrex) 25 mg PO ONCE PRN 03/29/22 [History (unknown) (no (unknown) (unknown) trying to get (units ( unknown) date) licensed. unknown) (unknown) (no (unknown) (unknown) until about 3 (units ( unknown) date) months ago: sharp unknown) pains before and after but not during menses. (unknown) (no (unknown) (unknown) went off of MARYLIN (units (unknown) date) pill 9 years, iud unknown) mirena until January 2021, horrible pain. Normal (unknown) (no (unknown) (unknown) will start (units (unk nown) date) colonoscopies unknown) earlier, breast MRI age 26. LOOK INTO THIS AND Result panel 8 (unknown) (no (unknown) (unknown) (no value) (units (unk nown) date) unknown) (unknown) (no (unknown) (unknown) (1) Dysmenorrhea: (units (unknown) date) unknown) (unknown) (no (unknown) (unknown) [id number] (units (unkno wn) date) unknown) (unknown) (no (unknown) (unknown) 03/29/22 (units (unkno wn) date) unknown) (unknown) (no (unknown) (unknown) 12:18 (units (unkno wn) date) unknown) (unknown) (no (unknown) (unknown) Accompanied by: (units (unknown) date) Self / Same As unknown) Patient (unknown) (no (unknown) (unknown) Age/Sex: 26 / F (units (unknown) date) Date of Service: unknown) (unknown) (no (unknown) (unknown) Allergies (units (unkn own) date) unknown) (unknown) (no (unknown) (unknown) JARED Garcia (units ( unknown) date) [id number] unknown) (unknown) (no (unknown) (unknown) Assessment + Plan (units (unknown) date) unknown) (unknown) (no (unknown) (unknown) Attending Dr: (units ( unknown) date) Vin HUBER unknown) (unknown) (no (unknown) (unknown) BMI 24.5 (units (unkno wn) date) unknown) (unknown) (no (unknown) (unknown) BP 114/62 (units (unkn own) date) unknown) (unknown) (no (unknown) (unknown) Back pain, (units (unk nown) date) lumbosacral unknown) (unknown) (no (unknown) (unknown) Blood Pressure (units (unknown) date) Location Lt unknown) brachial (unknown) (no (unknown) (unknown) Chief Complaint (units (unknown) date) unknown) (unknown) (no (unknown) (unknown) Chief Complaint: (units (unknown) date) establish care unknown) (unknown) (no (unknown) (unknown) Confirmed (units (unkn own) date) 03/29/22] unknown) (unknown) (no (unknown) (unknown) : 1995 (units (unknown) date) Acct:[id number] unknown) (unknown) (no (unknown) (unknown) Dept at (units (unkno wn) date) . unknown) (unknown) (no (unknown) (unknown) Details: (units (unkno wn) date) unknown) (unknown) (no (unknown) (unknown) Documented By: (units (unknown) date) Vin Nelson unknown) 03/29/22 1216 (unknown) (no (unknown) (unknown) Draft (units (unkno wn) date) unknown) (unknown) (no (unknown) (unknown) Family Practice (units (unknown) date) Office Visit unknown) (unknown) (no (unknown) (unknown) [facility]) (unknown) (no (unknown) (unknown) HPI (units (unkno wn) date) unknown) (unknown) (no (unknown) (unknown) Health Management (units (unknown) date) reviewed with unknown) patient: Yes (unknown) (no (unknown) (unknown) Health Management (units (unknown) date) unknown) (unknown) (no (unknown) (unknown) Height 177.8 cm (units (unknown) date) unknown) (unknown) (no (unknown) (unknown) However, if she (units (unknown) date) would like to see a unknown) genetic specialist/counselo r to have a (unknown) (no (unknown) (unknown) Intake Note: (units (u nknown) date) unknown) (unknown) (no (unknown) (unknown) Intake performed (units (unknown) date) by: Sara Horne unknown) M (unknown) (no (unknown) (unknown) Intake (units (unkno wn) date) unknown) (unknown) (no (unknown) (unknown) Intake- Clincial (units (unknown) date) Staff unknown) (unknown) (no (unknown) (unknown) Loc: [facility] (units (unkno wn) date) unknown) (unknown) (no (unknown) (unknown) Low back pain (units ( unknown) date) unknown) (unknown) (no (unknown) (unknown) Medical History (units (unknown) date) (Updated 01/28/22 @ unknown) 00:01 by ) (unknown) (no (unknown) (unknown) Medications (units (un known) date) unknown) (unknown) (no (unknown) (unknown) 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 (unknown) (no (unknown) (unknown) Orders: (units (unkno wn) date) unknown) (unknown) (no (unknown) (unknown) Oxygen Delivery (units (unknown) date) Method room air unknown) (unknown) (no (unknown) (unknown) PFSH (units (unkno wn) date) unknown) (unknown) (no (unknown) (unknown) Patient: (units (unkno wn) date) Linda Moreno unknown) MR#: [id number] (unknown) (no (unknown) (unknown) Penicillins (units (un known) date) Adverse Reaction unknown) (Mild, Verified 03/29/22 12:17) (unknown) (no (unknown) (unknown) Please let pt know (units (unknown) date) that the authors of unknown) Uptodate article on management of risk (unknown) (no (unknown) (unknown) Position Sitting (units (unknown) date) unknown) (unknown) (no (unknown) (unknown) Pulse 76 (units (unkno wn) date) unknown) (unknown) (no (unknown) (unknown) Pulse Oximetry (%) (units (unknown) date) 99 unknown) (unknown) (no (unknown) (unknown) Pulse Source (units (u nknown) date) Monitor unknown) (unknown) (no (unknown) (unknown) Reason For Visit (units (unknown) date) unknown) (unknown) (no (unknown) (unknown) Referral (units (unkno wn) date) Gynecology N94.6 - unknown) Dysmenorrhea, unspecified (unknown) (no (unknown) (unknown) Referrals (units (unkn own) date) unknown) (unknown) (no (unknown) (unknown) Respiration 16 (units (unknown) date) unknown) (unknown) (no (unknown) (unknown) Saw [facility] (units (unkno wn) date) Gastroenterology unknown) will get a liver mri for monitoring. (unknown) (no (unknown) (unknown) Sciatic leg pain (units (unknown) date) unknown) (unknown) (no (unknown) (unknown) Signed By: (units (unk nown) date) unknown) (unknown) (no (unknown) (unknown) Smoking Status: (units (unknown) date) Never smoker unknown) (unknown) (no (unknown) (unknown) Temp 97.2 F L (units ( unknown) date) unknown) (unknown) (no (unknown) (unknown) Temp Source (units (un known) date) Temporal Artery unknown) Scan (unknown) (no (unknown) (unknown) This note may have (units (unknown) date) been all or unknown) partially generated using voice recognition (unknown) (no (unknown) (unknown) Tobacco + (units (unkn own) date) Substance Use unknown) (unknown) (no (unknown) (unknown) Tobacco Status (units (unknown) date) unknown) (unknown) (no (unknown) (unknown) US will be done [facility] (units (unknown) date) [place] [facility] will take report to Aparna Holder (unknown) (no (unknown) (unknown) Visit Reasons: (units (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 (units (un known) date) unknown) (unknown) (no (unknown) (unknown) consultation this (units (unknown) date) is something we unknown) could order but the closest specialists I know (unknown) (no (unknown) (unknown) dad had esophageal (units (unknown) date) ca. mom breast CA unknown) 57ish. (unknown) (no (unknown) (unknown) follicular nodule (units (unknown) date) hyperplasia liver. unknown) micro bowel perf, (unknown) (no (unknown) (unknown) have occurred. If (units (unknown) date) there are any unknown) questions, please contact the Medical Records (unknown) (no (unknown) (unknown) may occur. (units (unk nown) date) Occasional unknown) wrong-word or 'sound-alike' substitutions may have (unknown) (no (unknown) (unknown) middle. (units (unkno wn) date) unknown) (unknown) (no (unknown) (unknown) moved from (units (unk nown) date) [place] to here unknown) july. 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 (unknown) (no (unknown) (unknown) occurred due to (units (unknown) date) the inherent unknown) limitations of voice recognition software. Please (unknown) (no (unknown) (unknown) of would be (units (un known) date) Kathy unknown) ([place].) If she would like referral to Genetic (unknown) (no (unknown) (unknown) read the note (units ( unknown) date) carefully and unknown) recognize, using context, where these substitutions (unknown) (no (unknown) (unknown) software. Although (units (unknown) date) every effort is unknown) made to edit content, mine car dispatcher errors (unknown) (no (unknown) (unknown) sometimes heavy, (units (unknown) date) sometimes not. 50 unknown) dday, 37 day, 31 day. pain typically in the (unknown) (no (unknown) (unknown) specialist please (units (unknown) date) go ahead and order unknown) (could consider [place] or [facility], or any (unknown) (no (unknown) (unknown) sumatriptan (units (unk nown) date) succinate 25 mg unknown) tablet (Imitrex) 25 mg PO ONCE PRN 08/29/22 [History (unknown) (no (unknown) (unknown) that she is able (units (unknown) date) to identify.) OK if unknown) she does not wish to do this. thanks! (unknown) (no (unknown) (unknown) there would be no (units (unknown) date) imaging to order unknown) for the pt at this time. (unknown) (no (unknown) (unknown) trying to get (units ( unknown) date) licensed. unknown) (unknown) (no (unknown) (unknown) until about 3 (units ( unknown) date) months ago: sharp unknown) pains before and after but not during menses. (unknown) (no (unknown) (unknown) went off of MARYLIN (units (unknown) date) pill 9 years, iud unknown) mirena until January 2021, horrible pain. Normal (unknown) (no (unknown) (unknown) will start (units (unk nown) date) colonoscopies unknown) earlier, breast MRI age 26. LOOK INTO THIS AND (unknown) (no (unknown) (unknown) with tomography (units (unknown) date) and annual MRI unknown) starting at age 41 years. So, based on this info Result panel 9 (unknown) (no (unknown) (unknown) (no value) (units (unk nown) date) unknown) (unknown) (no (unknown) (unknown) (1) Dysmenorrhea: (units (unknown) date) unknown) (unknown) (no (unknown) (unknown) (2) Liver nodule: (units (unknown) date) unknown) (unknown) (no (unknown) (unknown) (3) Gene mutation: (units (unknown) date) unknown) (unknown) (no (unknown) (unknown) [id number] (units (unkno wn) date) unknown) (unknown) (no (unknown) (unknown) 03/29/22 (units (unkno wn) date) unknown) (unknown) (no (unknown) (unknown) 04/02/22 1150 (units ( unknown) date) unknown) (unknown) (no (unknown) (unknown) 12:18 (units (unkno wn) date) unknown) (unknown) (no (unknown) (unknown) 26-year-old female (units (unknown) date) presents to unknown) establish care. She lives in [place], (unknown) (no (unknown) (unknown) Accompanied by: (units (unknown) date) Self / Same As unknown) Patient (unknown) (no (unknown) (unknown) Affect: normal (units (unknown) date) affect unknown) (unknown) (no (unknown) (unknown) Age/Sex: 26 / F (units (unknown) date) Date of Service: unknown) (unknown) (no (unknown) (unknown) All systems (units (un known) date) reviewed + are unknown) unremarkable except as noted in HPI and below (unknown) (no (unknown) (unknown) Allergies (units (unkn own) date) unknown) (unknown) (no (unknown) (unknown) [place], [place] (units ( unknown) date) [id number] unknown) (unknown) (no (unknown) (unknown) Appearance: (units (un known) date) grossly normal unknown) (unknown) (no (unknown) (unknown) Assessment + Plan (units (unknown) date) unknown) (unknown) (no (unknown) (unknown) Attending Dr: (units ( unknown) date) Vin HUBER unknown) (unknown) (no (unknown) (unknown) Attitude: (units (unkn own) date) cooperative unknown) (unknown) (no (unknown) (unknown) BMI 24.5 (units (unkno wn) date) unknown) (unknown) (no (unknown) (unknown) BP 114/62 (units (unkn own) date) unknown) (unknown) (no (unknown) (unknown) Back pain, (units (unk nown) date) lumbosacral unknown) (unknown) (no (unknown) (unknown) Blood Pressure (units (unknown) date) Location Lt unknown) brachial (unknown) (no (unknown) (unknown) 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: We spent unknown) time reviewing literature regarding management (unknown) (no (unknown) (unknown) Cardio (units (unkno wn) date) unknown) (unknown) (no (unknown) (unknown) Chief Complaint (units (unknown) date) unknown) (unknown) (no (unknown) (unknown) Chief Complaint: (units (unknown) date) establish care unknown) (unknown) (no (unknown) (unknown) Cognition: normal (units (unknown) date) cognition unknown) (unknown) (no (unknown) (unknown) Confirmed (units (unkn own) date) 03/29/22] unknown) (unknown) (no (unknown) (unknown) Const (units (unkno wn) date) unknown) (unknown) (no (unknown) (unknown) : 1995 (units (unknown) date) Acct:[id number] unknown) (unknown) (no (unknown) (unknown) [place]. Patient (units (unknown) date) grew up in unknown) [place]. 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 unknown) (unknown) (no (unknown) (unknown) Details: (units (unkno wn) date) unknown) (unknown) (no (unknown) (unknown) Documented By: (units (unknown) date) Vin Nelson unknown) 03/29/22 1216 (unknown) (no (unknown) (unknown) Dysmenorrhea/irreg (units (unknown) date) ular menses: We unknown) will place referral to gynecology as this is (unknown) (no (unknown) (unknown) Effort + (units (unkno wn) date) Inspection: normal unknown) respiratory effort (unknown) (no (unknown) (unknown) Exam (units (unkno wn) date) unknown) (unknown) (no (unknown) (unknown) Eyes (units (unkno wn) date) unknown) (unknown) (no (unknown) (unknown) Family Practice (units (unknown) date) Office Visit unknown) (unknown) (no (unknown) (unknown) [facility]) (unknown) (no (unknown) (unknown) Follicular nodule (units (unknown) date) hyperplasia on unknown) liver: Follow-up with gastroenterology (unknown) (no (unknown) (unknown) Gait: normal gait (units (unknown) date) unknown) (unknown) (no (unknown) (unknown) Gene mutation (units ( unknown) date) unknown) (unknown) (no (unknown) (unknown) General: (units (unkno wn) date) appearance normal, unknown) both eyes and all related structures (unknown) (no (unknown) (unknown) General: (units (unkno wn) date) cooperative, unknown) healthy appearing and no acute distress (unknown) (no (unknown) (unknown) General: no rashes (units (unknown) date) or lesions noted unknown) (unknown) (no (unknown) (unknown) General: patient (units (unknown) date) alert, patient unknown) awake and patient oriented x3 (unknown) (no (unknown) (unknown) HENMT (units (unkno wn) date) unknown) (unknown) (no (unknown) (unknown) HPI (units (unkno wn) date) unknown) (unknown) (no (unknown) (unknown) Head: normal to (units (unknown) date) inspection unknown) (unknown) (no (unknown) (unknown) Health Management (units (unknown) date) reviewed with unknown) patient: Yes (unknown) (no (unknown) (unknown) Health Management (units (unknown) date) unknown) (unknown) (no (unknown) (unknown) Height 177.8 cm (units (unknown) date) unknown) (unknown) (no (unknown) (unknown) Intake Note: (units (u nknown) date) unknown) (unknown) (no (unknown) (unknown) Intake performed (units (unknown) date) by: Sara Horne unknown) M (unknown) (no (unknown) (unknown) Intake (units (unkno wn) date) unknown) (unknown) (no (unknown) (unknown) Intake- Clincial (units (unknown) date) Staff unknown) (unknown) (no (unknown) (unknown) 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 (unknown) (no (unknown) (unknown) Liver nodule (units (u nknown) date) unknown) (unknown) (no (unknown) (unknown) Loc: [facility] (units (unkno wn) date) unknown) (unknown) (no (unknown) (unknown) Low back pain (units ( unknown) date) unknown) (unknown) (no (unknown) (unknown) Medical History (units (unknown) date) (Updated 04/02/22 @ unknown) 11:45 by CECILE Higgins) (unknown) (no (unknown) (unknown) Medications (units (un known) date) unknown) (unknown) (no (unknown) (unknown) Mental Status: (units (unknown) date) mental status unknown) grossly normal (unknown) (no (unknown) (unknown) Mood: congruent (units (unknown) date) mood unknown) (unknown) (no (unknown) (unknown) 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 (units (u nknown) date) periods-MEMS PROCESS ENGINEER unknown) referral (unknown) (no (unknown) (unknown) Neuro (units (unkno wn) date) unknown) (unknown) (no (unknown) (unknown) Orders: (units (unkno wn) date) unknown) (unknown) (no (unknown) (unknown) Oxygen Delivery (units (unknown) date) Method room air unknown) (unknown) (no (unknown) (unknown) PFSH (units (unkno wn) date) unknown) (unknown) (no (unknown) (unknown) Past medical (units (u nknown) date) history notable for unknown) CHEK2 gene mutation, follicular nodule (unknown) (no (unknown) (unknown) Patient already (units (unknown) date) has a plan in place unknown) to evaluate/address gynecological issues. (unknown) (no (unknown) (unknown) Patient complains (units (unknown) date) that her menses unknown) have become irregular for the past 3 months or (unknown) (no (unknown) (unknown) Patient has been (units (unknown) date) [facility] who she reports (unknown) (no (unknown) (unknown) Patient reports (units (unknown) date) that 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 She may do (unknown) (no (unknown) (unknown) Patient: (units (unkno wn) date) Linda Moreno unknown) MR#: [id number] (unknown) (no (unknown) (unknown) Penicillins (units (un known) date) Adverse Reaction unknown) (Mild, Verified 03/29/22 12:17) (unknown) (no (unknown) (unknown) Plan (units (unkno wn) date) unknown) (unknown) (no (unknown) (unknown) Position Sitting (units (unknown) date) unknown) (unknown) (no (unknown) (unknown) Psych (units (unkno wn) date) unknown) (unknown) (no (unknown) (unknown) Pulse 76 (units (unkno wn) date) unknown) (unknown) (no (unknown) (unknown) Pulse Oximetry (%) (units (unknown) date) 99 unknown) (unknown) (no (unknown) (unknown) Pulse Source (units (u nknown) date) Monitor unknown) (unknown) (no (unknown) (unknown) ROS (units (unkno wn) date) unknown) (unknown) (no (unknown) (unknown) Rate: regular rate (units (unknown) date) unknown) (unknown) (no (unknown) (unknown) Reason For Visit (units (unknown) date) unknown) (unknown) (no (unknown) (unknown) Referral (units (unkno wn) date) Gynecology N94.6 - unknown) Dysmenorrhea, unspecified (unknown) (no (unknown) (unknown) Referrals (units (unkn own) date) unknown) (unknown) (no (unknown) (unknown) Resp (units (unkno wn) date) unknown) (unknown) (no (unknown) (unknown) Respiration 16 (units (unknown) date) unknown) (unknown) (no (unknown) (unknown) Sciatic leg pain (units (unknown) date) unknown) (unknown) (no (unknown) (unknown) She has an (units (unk nown) date) appointment with unknown) Aparna Randle CNM and women's health provider and (unknown) (no (unknown) (unknown) Signed By: (units (unk nown) date) <Electronically unknown) signed by Vin Nelson> (unknown) (no (unknown) (unknown) Signed (units (unkno wn) date) unknown) (unknown) (no (unknown) (unknown) Skin (units (unkno wn) date) unknown) (unknown) (no (unknown) (unknown) Smoking Status: (units (unknown) date) Never smoker unknown) (unknown) (no (unknown) (unknown) Speech: speech (units (unknown) date) normal unknown) (unknown) (no (unknown) (unknown) States [place]. (units (u nknown) date) unknown) (unknown) (no (unknown) (unknown) Status: Acute (units ( unknown) date) unknown) (unknown) (no (unknown) (unknown) Temp 97.2 F L (units ( unknown) date) unknown) (unknown) (no (unknown) (unknown) Temp Source (units (un known) date) Temporal Artery unknown) Scan (unknown) (no (unknown) (unknown) This note may have (units (unknown) date) been all or unknown) partially generated using voice recognition (unknown) (no (unknown) (unknown) Thought Content: (units (unknown) date) normal unknown) (unknown) (no (unknown) (unknown) Thought Process: (units (unknown) date) normal unknown) (unknown) (no (unknown) (unknown) Tobacco + (units (unkn own) date) Substance Use unknown) (unknown) (no (unknown) (unknown) Tobacco Status (units (unknown) date) unknown) (unknown) (no (unknown) (unknown) Visit Reasons: (units (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 They unknown) moved to the area from [place] last (unknown) (no (unknown) (unknown) Weight 77.621 kg (units (unknown) date) unknown) (unknown) (no (unknown) (unknown) after IUD removal (units (unknown) date) up until 3 months unknown) ago. No bleeding between menses. Patient (unknown) (no (unknown) (unknown) after the visit (units (unknown) date) reviewed article in unknown) [employer] which recommended annual mammogram (unknown) (no (unknown) (unknown) age for screening. (units (unknown) date) unknown) (unknown) (no (unknown) (unknown) around age 58. (units (unknown) date) Patient herself has unknown) no personal history of cancers. Patient has (unknown) (no (unknown) (unknown) constant (units (unkno wn) date) associated pain. unknown) Her menses had been very regular starting shortly (unknown) (no (unknown) (unknown) currently trying (units (unknown) date) to become licensed unknown) in [place] (no (unknown) (unknown) during the menses. (units (unknown) date) Sometimes menses unknown) are heavy, sometimes not. Reports that she (unknown) (no (unknown) (unknown) exam/Pap with me. (units (unknown) date) unknown) (unknown) (no (unknown) (unknown) genetic (units (unkno wn) date) specialist/counselo unknown) r for a comprehensive consultation if she feels this (unknown) (no (unknown) (unknown) has a plan in (units ( unknown) date) place to get her unknown) pelvic ultrasound. Follow-up as needed for new (unknown) (no (unknown) (unknown) has had 49 day, 37 (units (unknown) date) day, and 31 day unknown) cycles respectively during this period of (unknown) (no (unknown) (unknown) have occurred. If (units (unknown) date) there are any unknown) questions, please contact the Medical Records (unknown) (no (unknown) (unknown) hyperplasia on (units (unknown) date) liver, micro bowel unknown) perforation status post abdominal laparoscopy (unknown) (no (unknown) (unknown) including getting (units (unknown) date) imaging per their unknown) recommendations. (unknown) (no (unknown) (unknown) may occur. (units (unk nown) date) Occasional unknown) wrong-word or 'sound-alike' substitutions may have (unknown) (no (unknown) (unknown) not able to fully (units (unknown) date) explore the topic unknown) during the visit due to time constraints but (unknown) (no (unknown) (unknown) not seen a genetic (units (unknown) date) specialist/counselo unknown) r to review recommendations. She (unknown) (no (unknown) (unknown) occurred due to (units (unknown) date) the inherent unknown) limitations of voice recognition software. Please (unknown) (no (unknown) (unknown) or worsening (units (u nknown) date) symptoms prior to unknown) seeing Gynecology. (unknown) (no (unknown) (unknown) performed there (units (unknown) date) then will take the unknown) report when she sees Ms. Randle. (unknown) (no (unknown) (unknown) positive for CHEK2 (units (unknown) date) gene mutation. Her unknown) mother was diagnosed with breast cancer (unknown) (no (unknown) (unknown) read the note (units ( unknown) date) carefully and unknown) recognize, using context, where these substitutions (unknown) (no (unknown) (unknown) recommendations for (units (unknown) date) individuals who unknown) have some form of CHEK2 gene mutation; I was (unknown) (no (unknown) (unknown) recommendations. (units (unknown) date) She believes it may unknown) be recommended to get breast MRI at her (unknown) (no (unknown) (unknown) required by her (units (unknown) date) insurance although unknown) she has already scheduled her appointment and (unknown) (no (unknown) (unknown) so. She has gotten (units (unknown) date) sharp pains prior unknown) to and just following the menses but not (unknown) (no (unknown) (unknown) software. Although (units (unknown) date) every effort is unknown) made to edit content, mine car dispatcher errors (unknown) (no (unknown) (unknown) staff to passes (units (unknown) date) information onto unknown) the patient and also to offer referral to (unknown) (no (unknown) (unknown) states that in the (units (unknown) date) past she was on MARYLIN unknown) pill for about 9 years. (unknown) (no (unknown) (unknown) sumatriptan (units (unk nown) date) succinate 25 mg unknown) tablet (Imitrex) 25 mg PO ONCE PRN 03/29/22 [History (unknown) (no (unknown) (unknown) this with (units (unkn own) date) gynecology if she unknown) is seeing them still or may schedule well-woman (unknown) (no (unknown) (unknown) time. Patient had (units (unknown) date) Mirena IUD until unknown) January 2021 when this was removed due to (unknown) (no (unknown) (unknown) understands she (units (unknown) date) will be starting unknown) colonoscopies earlier than general population (unknown) (no (unknown) (unknown) when she is back (units (unknown) date) in [place] in unknown) April she will get pelvic ultrasound (unknown) (no (unknown) (unknown) will be getting (units (unknown) date) liver MRI for unknown) monitoring of liver nodule. (unknown) (no (unknown) (unknown) with tomography (units (unknown) date) and annual MRI unknown) starting at age 40. I have asked our nursing (unknown) (no (unknown) (unknown) would be (units (unkno wn) date) beneficial. unknown) Result panel 10 (unknown) (no (unknown) (unknown) (no value) (units (unk nown) date) unknown) (unknown) (no (unknown) (unknown) [id number] (units (unkn own) date) unknown) (unknown) (no (unknown) (unknown) 05/12/22 (units (unkno wn) date) unknown) (unknown) (no (unknown) (unknown) 11 (units (unkno wn) date) unknown) (unknown) (no (unknown) (unknown) [address] [place] [address] (units (unknown) date) unknown) (unknown) (no (unknown) (unknown) 2D FLASH (units (unkno wn) date) unknown) (unknown) (no (unknown) (unknown) Accession (units (unkn own) date) Number: unknown) [id number] (unknown) (no (unknown) (unknown) Age/Sex: 27 / F (units (unknown) date) Date of Service: unknown) (unknown) (no (unknown) (unknown) [place] (units ( unknown) date) [id number] unknown) (unknown) (no (unknown) (unknown) Approved by: (units (u nknown) date) Avery Duque M.D. unknown) on 06/01/2022 at 9:49 (unknown) (no (unknown) (unknown) Bones and soft (units (unknown) date) tissues: No acute unknown) or suspicious osseous abnormality. (unknown) (no (unknown) (unknown) Bowel and (units (unkn own) date) peritoneum: unknown) Stomach and proximal duodenum are mildly distended with (unknown) (no (unknown) (unknown) COMPARISON: A (units ( unknown) date) prior report is unknown) available from outside MRI dated 05/26/2021. (unknown) (no (unknown) (unknown) Coronal HASTE, (units (unknown) date) axial 2D FLASH unknown) in- and [id number]; axial breath-hold T2 FSE. (unknown) (no (unknown) (unknown) : 1995 (units (unknown) date) Acct:[id number] unknown) (unknown) (no (unknown) (unknown) Dictated by: (units (u nknown) date) Avery Duque M.D. unknown) on 06/01/2022 at 9:32 (unknown) (no (unknown) (unknown) Dynamic (units (unkno wn) date) unknown) (unknown) (no (unknown) (unknown) FINDINGS: (units (unkn own) date) unknown) (unknown) (no (unknown) (unknown) Gallbladder is (units (unknown) date) under distended. unknown) There is no biliary ductal dilation. No (unknown) (no (unknown) (unknown) IMPRESSION: (units (un known) date) There is a T2 unknown) hyperintense lesion in hepatic segment 3. This is a (unknown) (no (unknown) (unknown) INDICATIONS: (units (u nknown) date) LIVER LESION unknown) (unknown) (no (unknown) (unknown) Image quality: (units (unknown) date) Motion degraded. unknown) There is also metallic artifact posteriorly (unknown) (no (unknown) (unknown) [facility] (units (unknown) date) unknown) (unknown) (no (unknown) (unknown) Loc: MRI (units (unkno wn) date) unknown) (unknown) (no (unknown) (unknown) Lung bases: No (units (unknown) date) basal effusion. unknown) Lungs are not well assessed on MRI. (unknown) (no (unknown) (unknown) Magnetic (units (unkno wn) date) Resonance Report unknown) (unknown) (no (unknown) (unknown) No acute (units (unkno wn) date) abdominal pelvic unknown) pathology. (unknown) (no (unknown) (unknown) Nodes and (units (unkn own) date) vessels: No unknown) abdominal aortic aneurysm. No pathologic adenopathy by (unknown) (no (unknown) (unknown) Only the (units (unkno wn) date) comparison report unknown) from 2020 is available. Comparison images are not (unknown) (no (unknown) (unknown) Ordering (units (unkno wn) date) Provider: unknown) Estuardo Box MD (unknown) (no (unknown) (unknown) PROCEDURE: MR (units ( unknown) date) ABDOMEN WO/W CON unknown) (unknown) (no (unknown) (unknown) Patient: (units (unkno wn) date) Linda Moreno R unknown) MR#: [id number] (unknown) (no (unknown) (unknown) Procedure: MR (units ( unknown) date) abdomen wo/w con unknown) (unknown) (no (unknown) (unknown) Signed (units (unkno wn) date) unknown) (unknown) (no (unknown) (unknown) Solid organs: (units ( unknown) date) There is a T2 unknown) hyperintense lesion on image 4/19 measuring 11 by (unknown) (no (unknown) (unknown) TECHNIQUE: (units (unk nown) date) unknown) (unknown) (no (unknown) (unknown) There is also (units ( unknown) date) extensive gas unknown) artifact adjacent to the area of interest near the (unknown) (no (unknown) (unknown) at this time. (units ( unknown) date) unknown) (unknown) (no (unknown) (unknown) available (units (unkn own) date) unknown) (unknown) (no (unknown) (unknown) axial VIBE (units (unk nown) date) during the unknown) administration of contrast; post-contrast coronal VIBE or (unknown) (no (unknown) (unknown) causing (units (unkno wn) date) extensive unknown) susceptibility artifact, without overt small bowel (unknown) (no (unknown) (unknown) causing in (units (unk nown) date) unknown) (unknown) (no (unknown) (unknown) criteria. The (units ( unknown) date) portal vein is unknown) patent. (unknown) (no (unknown) (unknown) described focal (units (unknown) date) unknown) (unknown) (no (unknown) (unknown) diffusion (units (unkn own) date) unknown) (unknown) (no (unknown) (unknown) ductal dilation (units (unknown) date) no splenomegaly. unknown) No discrete adrenal nodule. No (unknown) (no (unknown) (unknown) gas, (units (unkno wn) date) unknown) (unknown) (no (unknown) (unknown) hepatic (units (unkno wn) date) unknown) (unknown) (no (unknown) (unknown) hilum. (units (unkno wn) date) unknown) (unknown) (no (unknown) (unknown) homogeneity in (units (unknown) date) fat saturation unknown) limiting evaluation of the posterior liver and (unknown) (no (unknown) (unknown) hydronephrosis. (units (unknown) date) unknown) (unknown) (no (unknown) (unknown) lesions (units (unkno wn) date) unknown) (unknown) (no (unknown) (unknown) limited MRI due (units (unknown) date) to multiple unknown) technical issues described above. Previously (unknown) (no (unknown) (unknown) liver dome. (units (un known) date) unknown) (unknown) (no (unknown) (unknown) liver, (units (unkno wn) date) especially near unknown) the hilum and posterior and dome aspects essentially (unknown) (no (unknown) (unknown) markedly (units (unkno wn) date) unknown) (unknown) (no (unknown) (unknown) millimeters in (units (unknown) date) segment 3. It is unknown) unclear whether this corresponds any of the (unknown) (no (unknown) (unknown) nodular (units (unkno wn) date) hyperplasia is unknown) not definitively identified in segment 8. (unknown) (no (unknown) (unknown) nondiagnostic. (units (unknown) date) unknown) (unknown) (no (unknown) (unknown) obstruction. No (units (unknown) date) unknown) (unknown) (no (unknown) (unknown) pancreatic (units (unk nown) date) unknown) (unknown) (no (unknown) (unknown) parts of the (units (u nknown) date) unknown) (unknown) (no (unknown) (unknown) pathologic (units (unk nown) date) ascites. unknown) (unknown) (no (unknown) (unknown) reported on (units (un known) date) outside imaging unknown) from 2020. Imaging limitations as above render (unknown) (no (unknown) (unknown) size (units (unkno wn) date) unknown) (unknown) (no (unknown) (unknown) weighted imaging (units (unknown) date) and ADC may be unknown) performed. (unknown) (no (unknown) (unknown) with fat (units (unkno wn) date) saturation from unknown) the hepatic dome to the iliac crests. Optional Result panel 11 (unknown) (no (unknown) (unknown) (no value) (units (unk nown) date) unknown) (unknown) (no (unknown) (unknown) [id number] (units (unkno wn) date) unknown) (unknown) (no (unknown) (unknown) 06/09/22 (units (unkno wn) date) unknown) (unknown) (no (unknown) (unknown) Age/Sex: 27 / F (units (unknown) date) Date of Service: unknown) (unknown) (no (unknown) (unknown) Allergies (units (unkn own) date) unknown) (unknown) (no (unknown) (unknown) JARED Garcia (units ( unknown) date) [id number] unknown) (unknown) (no (unknown) (unknown) Anesthesia (units (unk nown) date) unknown) (unknown) (no (unknown) (unknown) Attending Dr: (units ( unknown) date) Vin HUBER unknown) (unknown) (no (unknown) (unknown) Back pain, (units (unk nown) date) lumbosacral unknown) (unknown) (no (unknown) (unknown) : 1995 (units (unknown) date) Acct:[id number] unknown) (unknown) (no (unknown) (unknown) Dept at (units (unkno wn) date) . unknown) (unknown) (no (unknown) (unknown) Documented By: (units (unknown) date) Vin Nelson unknown) 06/09/22 1452 (unknown) (no (unknown) (unknown) Draft (units (unkno wn) date) unknown) (unknown) (no (unknown) (unknown) Family History (units (unknown) date) (Updated 04/30/22 unknown) @ 19:10 by Shalonda Foote) (unknown) (no (unknown) (unknown) Family Practice (units (unknown) date) Office Visit unknown) (unknown) (no (unknown) (unknown) Father (units (unknown) date) Cancer unknown) (unknown) (no (unknown) (unknown) [facility]) (unknown) (no (unknown) (unknown) Gene mutation (units ( unknown) date) () unknown) (unknown) (no (unknown) (unknown) 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) (unknown) (no (unknown) (unknown) Grandfather (units (un known) date) Diabetes unknown) mellitus (unknown) (no (unknown) (unknown) Grandmother (units (un known) date) Breast unknown) cancer (unknown) (no (unknown) (unknown) Grandmother (units (un known) date) Stroke unknown) (unknown) (no (unknown) (unknown) History of heart (units (unknown) date) disease unknown) (unknown) (no (unknown) (unknown) History of (units (unk nown) date) laparoscopy unknown) (-08/03/20) (unknown) (no (unknown) (unknown) Intake performed (units (unknown) date) by: Estuardo Alejo unknown) (unknown) (no (unknown) (unknown) Intake (units (unkno wn) date) unknown) (unknown) (no (unknown) (unknown) Intake- Clincial (units (unknown) date) Staff unknown) (unknown) (no (unknown) (unknown) Irregular (units (unkn own) date) menstrual cycle unknown) (unknown) (no (unknown) (unknown) Irritable bowel (units (unknown) date) syndrome unknown) (unknown) (no (unknown) (unknown) Liver nodule (units (u nknown) date) unknown) (unknown) (no (unknown) (unknown) Loc: [facility] (units (unkno wn) date) unknown) (unknown) (no (unknown) (unknown) Low back pain (units ( unknown) date) unknown) (unknown) (no (unknown) (unknown) Medical History (units (unknown) date) (Updated 04/30/22 unknown) @ 18:56 by Shalonda Foote) (unknown) (no (unknown) (unknown) Mother Breast (units ( unknown) date) cancer unknown) (unknown) (no (unknown) (unknown) PFSH (units (unkno wn) date) unknown) (unknown) (no (unknown) (unknown) Patient: (units (unkno wn) date) Linda Moreno unknown) MR#: [id number] (unknown) (no (unknown) (unknown) Penicillins (units (un known) date) Adverse Reaction unknown) (Mild, Verified 03/29/22 12:17) (unknown) (no (unknown) (unknown) Reason For Visit (units (unknown) date) unknown) (unknown) (no (unknown) (unknown) Sciatic leg pain (units (unknown) date) unknown) (unknown) (no (unknown) (unknown) Signed By: (units (unk nown) date) unknown) (unknown) (no (unknown) (unknown) Smoking Status: (units (unknown) date) Never smoker unknown) (unknown) (no (unknown) (unknown) Surgical History (units (unknown) date) (Updated 04/30/22 unknown) @ 18:56 by Shalonda Foote) (unknown) (no (unknown) (unknown) This note may (units ( unknown) date) have been all or unknown) partially generated using voice recognition (unknown) (no (unknown) (unknown) Tobacco + (units (unkn own) date) Substance Use unknown) (unknown) (no (unknown) (unknown) Tobacco Status (units (unknown) date) unknown) (unknown) (no (unknown) (unknown) Visit Reasons: (units (unknown) date) ER in [facility] unknown) (unknown) (no (unknown) (unknown) have occurred. (units (unknown) date) If there are any unknown) questions, please contact the Medical Records (unknown) (no (unknown) (unknown) may occur. (units (unk nown) date) Occasional unknown) wrong-word or 'sound-alike' substitutions may have (unknown) (no (unknown) (unknown) occurred due to (units (unknown) date) the inherent unknown) limitations of voice recognition software. Please (unknown) (no (unknown) (unknown) read the note (units ( unknown) date) carefully and unknown) recognize, using context, where these substitutions (unknown) (no (unknown) (unknown) software. (units (unkn own) date) Although every unknown) effort is made to edit content, mine car dispatcher errors Result panel 12 (unknown) (no (unknown) (unknown) (no value) (units (unk nown) date) unknown) (unknown) (no (unknown) (unknown) [id number] (units (unkno wn) date) unknown) (unknown) (no (unknown) (unknown) 05/13/22 [Rx (units (u nknown) date) Confirmed unknown) 06/09/22] (unknown) (no (unknown) (unknown) 06/09/22 (units (unkno wn) date) unknown) (unknown) (no (unknown) (unknown) 14:53 (units (unkno wn) date) unknown) (unknown) (no (unknown) (unknown) 27 yo female (units (un known) date) presents for ED unknown) follow up from [facility]. Is still feeling dizzy with (unknown) (no (unknown) (unknown) Age/Sex: 27 / F (units (unknown) date) Date of Service: unknown) (unknown) (no (unknown) (unknown) Allergies (units (unkn own) date) unknown) (unknown) (no (unknown) (unknown) [place], [place] (units ( unknown) date) [id number] unknown) (unknown) (no (unknown) (unknown) Anesthesia (units (unk nown) date) unknown) (unknown) (no (unknown) (unknown) Attending Dr: (units ( unknown) date) Vin HUBER unknown) (unknown) (no (unknown) (unknown) BMI 24.0 (units (unkno wn) date) unknown) (unknown) (no (unknown) (unknown) BP 90/60 (units (unkno wn) date) unknown) (unknown) (no (unknown) (unknown) Back pain, (units (unk nown) date) lumbosacral unknown) (unknown) (no (unknown) (unknown) Blood Pressure (units (unknown) date) Location Lt unknown) brachial (unknown) (no (unknown) (unknown) : 1995 (units (unknown) date) Acct:[id number] unknown) (unknown) (no (unknown) (unknown) Dept at (units (unkno wn) date) . unknown) (unknown) (no (unknown) (unknown) Documented By: (units (unknown) date) Vin Nelson unknown) 06/09/22 1452 (unknown) (no (unknown) (unknown) Draft (units (unkno wn) date) unknown) (unknown) (no (unknown) (unknown) Family History (units (unknown) date) (Updated 04/30/22 unknown) @ 19:10 by Shalonda Foote) (unknown) (no (unknown) (unknown) Family Practice (units (unknown) date) Office Visit unknown) (unknown) (no (unknown) (unknown) Father (units (unknown) date) Cancer unknown) (unknown) (no (unknown) (unknown) [facility]) (unknown) (no (unknown) (unknown) Gene mutation (units ( unknown) date) () unknown) (unknown) (no (unknown) (unknown) 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) (unknown) (no (unknown) (unknown) Grandfather (units (un known) date) Diabetes unknown) mellitus (unknown) (no (unknown) (unknown) Grandmother (units (un known) date) Breast unknown) cancer (unknown) (no (unknown) (unknown) Grandmother (units (un known) date) Stroke unknown) (unknown) (no (unknown) (unknown) Height 5 ft 10 (units (unknown) date) in unknown) (unknown) (no (unknown) (unknown) History of heart (units (unknown) date) disease unknown) (unknown) (no (unknown) (unknown) History of (units (unk nown) date) laparoscopy unknown) (-08/03/20) (unknown) (no (unknown) (unknown) Intake Note: (units (u nknown) date) unknown) (unknown) (no (unknown) (unknown) Intake performed (units (unknown) date) by: Estuardo Alejo unknown) (unknown) (no (unknown) (unknown) Intake (units (unkno wn) date) unknown) (unknown) (no (unknown) (unknown) Intake- Clincial (units (unknown) date) Staff unknown) (unknown) (no (unknown) (unknown) Irregular (units (unkn own) date) menstrual cycle unknown) (unknown) (no (unknown) (unknown) Irritable bowel (units (unknown) date) syndrome unknown) (unknown) (no (unknown) (unknown) Liver nodule (units (u nknown) date) unknown) (unknown) (no (unknown) (unknown) Loc: [facility] (units (unkno wn) date) unknown) (unknown) (no (unknown) (unknown) Low back pain (units ( unknown) date) unknown) (unknown) (no (unknown) (unknown) Medical History (units (unknown) date) (Updated 04/30/22 unknown) @ 18:56 by Shalonda Foote) (unknown) (no (unknown) (unknown) Medications (units (un known) date) unknown) (unknown) (no (unknown) (unknown) Mother Breast (units ( unknown) date) cancer unknown) (unknown) (no (unknown) (unknown) Oxygen Delivery (units (unknown) date) Method room air unknown) (unknown) (no (unknown) (unknown) PFSH (units (unkno wn) date) unknown) (unknown) (no (unknown) (unknown) Patient: (units (unkno wn) date) Linda Moreno unknown) MR#: [id number] (unknown) (no (unknown) (unknown) Penicillins (units (un known) date) Adverse Reaction unknown) (Mild, Verified 06/09/22 14:56) (unknown) (no (unknown) (unknown) Position Supine (units (unknown) date) unknown) (unknown) (no (unknown) (unknown) Pulse 73 (units (unkno wn) date) unknown) (unknown) (no (unknown) (unknown) Pulse Oximetry (units (unknown) date) (%) 98 unknown) (unknown) (no (unknown) (unknown) Pulse Source (units (u nknown) date) Monitor unknown) (unknown) (no (unknown) (unknown) Reason For Visit (units (unknown) date) unknown) (unknown) (no (unknown) (unknown) Sciatic leg pain (units (unknown) date) unknown) (unknown) (no (unknown) (unknown) Signed By: (units (unk nown) date) unknown) (unknown) (no (unknown) (unknown) Smoking Status: (units (unknown) date) Never smoker unknown) (unknown) (no (unknown) (unknown) Surgical History (units (unknown) date) (Updated 04/30/22 unknown) @ 18:56 by Shalonda Foote) (unknown) (no (unknown) (unknown) This note may (units ( unknown) date) have been all or unknown) partially generated using voice recognition (unknown) (no (unknown) (unknown) Tobacco + (units (unkn own) date) Substance Use unknown) (unknown) (no (unknown) (unknown) Tobacco Status (units (unknown) date) unknown) (unknown) (no (unknown) (unknown) Visit Reasons: (units (unknown) date) ER in [facility] unknown) (unknown) (no (unknown) (unknown) Vitals (units (unkno wn) date) unknown) (unknown) (no (unknown) (unknown) Weight 168 lb (units ( unknown) date) unknown) (unknown) (no (unknown) (unknown) have occurred. (units (unknown) date) If there are any unknown) questions, please contact the Medical Records (unknown) (no (unknown) (unknown) headache. Also (units (unknown) date) left sided unknown) numbness to face. Ears feel full but denies loss of (unknown) (no (unknown) (unknown) hearing. PCP back (units (unknown) date) east gave her a unknown) rx for Valium 5 mg. Took 1/2 tablet last night (unknown) (no (unknown) (unknown) may occur. (units (unk nown) date) Occasional unknown) wrong-word or 'sound-alike' substitutions may have (unknown) (no (unknown) (unknown) occurred due to (units (unknown) date) the inherent unknown) limitations of voice recognition software. Please (unknown) (no (unknown) (unknown) read the note (units ( unknown) date) carefully and unknown) recognize, using context, where these substitutions (unknown) (no (unknown) (unknown) software. (units (unkn own) date) Although every unknown) effort is made to edit content, mine car dispatcher errors (unknown) (no (unknown) (unknown) sumatriptan (units (un known) date) succinate 25 mg unknown) tablet See Rx Instructions PO .COMPLEX #30 tabs (unknown) (no (unknown) (unknown) which helped the (units (unknown) date) dizziness. unknown) Result panel 13 (unknown) (no (unknown) (unknown) (no value) (units (unk nown) date) unknown) (unknown) (no (unknown) (unknown) [id number] (units (unkno wn) date) unknown) (unknown) (no (unknown) (unknown) 05/13/22 [Rx (units (u nknown) date) Confirmed 06/09/22] unknown) (unknown) (no (unknown) (unknown) 06/09/22 (units (unkno wn) date) unknown) (unknown) (no (unknown) (unknown) 14:53 (units (unkno wn) date) unknown) (unknown) (no (unknown) (unknown) 26-year-old female (units (unknown) date) presents to unknown) establish care. She lives in [place], (unknown) (no (unknown) (unknown) 27 yo female (units (un known) date) presents for ED unknown) follow up from [facility]. Is still feeling dizzy with (unknown) (no (unknown) (unknown) Age/Sex: 27 / F (units (unknown) date) Date of Service: unknown) (unknown) (no (unknown) (unknown) Allergies (units (unkn own) date) unknown) (unknown) (no (unknown) (unknown) [place], [place] (units ( unknown) date) [id number] unknown) (unknown) (no (unknown) (unknown) Anesthesia (units (unk nown) date) unknown) (unknown) (no (unknown) (unknown) Attending Dr: (units ( unknown) date) Vin HUBER unknown) (unknown) (no (unknown) (unknown) BMI 24.0 (units (unkno wn) date) unknown) (unknown) (no (unknown) (unknown) BP 90/60 (units (unkno wn) date) unknown) (unknown) (no (unknown) (unknown) Back pain, (units (unk nown) date) lumbosacral unknown) (unknown) (no (unknown) (unknown) Blood Pressure (units (unknown) date) Location Lt unknown) brachial (unknown) (no (unknown) (unknown) 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 We spent unknown) time reviewing literature regarding management (unknown) (no (unknown) (unknown) Chief Complaint (units (unknown) date) unknown) (unknown) (no (unknown) (unknown) Chief Complaint: (units (unknown) date) f/u ED visit unknown) (unknown) (no (unknown) (unknown) : 1995 (units (unknown) date) Acct:[id number] unknown) (unknown) (no (unknown) (unknown) July. Patient (units (unknown) date) grew up in unknown) [place]. 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 unknown) (unknown) (no (unknown) (unknown) Details: (units (unkno wn) date) unknown) (unknown) (no (unknown) (unknown) Documented By: (units (unknown) date) Vin Nelson unknown) 06/09/22 1452 (unknown) (no (unknown) (unknown) Draft (units (unkno wn) date) unknown) (unknown) (no (unknown) (unknown) Dysmenorrhea/irreg (units (unknown) date) ular menses:? 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) (unknown) (no (unknown) (unknown) Grandfather (units (un known) date) Diabetes unknown) mellitus (unknown) (no (unknown) (unknown) Grandmother (units (un known) date) Breast unknown) cancer (unknown) (no (unknown) (unknown) Grandmother (units (un known) date) Stroke unknown) (unknown) (no (unknown) (unknown) HPI (units (unkno wn) date) unknown) (unknown) (no (unknown) (unknown) Height 177.8 cm (units (unknown) date) unknown) (unknown) (no (unknown) (unknown) History of heart (units (unknown) date) disease unknown) (unknown) (no (unknown) (unknown) History of (units (unk nown) date) laparoscopy unknown) (08/03/20) (unknown) (no (unknown) (unknown) Intake Note: (units (u nknown) date) unknown) (unknown) (no (unknown) (unknown) Intake performed (units (unknown) date) by: Estuardo Alejo unknown) (unknown) (no (unknown) (unknown) Intake (units (unkno wn) date) unknown) (unknown) (no (unknown) (unknown) Intake- Clincial (units (unknown) date) Staff unknown) (unknown) (no (unknown) (unknown) Irregular (units (unkn own) date) menstrual cycle unknown) (unknown) (no (unknown) (unknown) Irritable bowel (units (unknown) date) syndrome unknown) (unknown) (no (unknown) (unknown) 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 (unknown) (no (unknown) (unknown) Liver nodule (units (u nknown) date) unknown) (unknown) (no (unknown) (unknown) Loc: [facility] (units (unkno wn) date) unknown) (unknown) (no (unknown) (unknown) Low back pain (units ( unknown) date) unknown) (unknown) (no (unknown) (unknown) Medical History (units (unknown) date) (Updated 04/30/22 @ unknown) 18:56 by Shalonda Foote) (unknown) (no (unknown) (unknown) Medications (units (un known) date) unknown) (unknown) (no (unknown) (unknown) Mother Breast (units ( unknown) date) cancer unknown) (unknown) (no (unknown) (unknown) Oxygen Delivery (units (unknown) date) Method room air unknown) (unknown) (no (unknown) (unknown) PFSH (units (unkno wn) date) unknown) (unknown) (no (unknown) (unknown) Past medical (units (u nknown) date) history notable for unknown) CHEK2 gene mutation, follicular nodule (unknown) (no (unknown) (unknown) Patient already (units (unknown) date) has a plan in place unknown) to evaluate/address gynecological issues. 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 She may do (unknown) (no (unknown) (unknown) Patient: (units (unkno wn) date) Linda Moreno Rich unknown) MR#: [id number] (unknown) (no (unknown) (unknown) Penicillins (units (un known) date) Adverse Reaction unknown) (Mild, Verified 06/09/22 14:56) (unknown) (no (unknown) (unknown) Plan (units (unkno wn) date) unknown) (unknown) (no (unknown) (unknown) Position Supine (units (unknown) date) unknown) (unknown) (no (unknown) (unknown) Pulse 73 (units (unkno wn) date) unknown) (unknown) (no (unknown) (unknown) Pulse Oximetry (%) (units (unknown) date) 98 unknown) (unknown) (no (unknown) (unknown) Pulse Source (units (u nknown) date) Monitor unknown) (unknown) (no (unknown) (unknown) Reason For Visit (units (unknown) date) unknown) (unknown) (no (unknown) (unknown) Sciatic leg pain (units (unknown) date) unknown) (unknown) (no (unknown) (unknown) She has an (units (unk nown) date) appointment with unknown) Aparna Randle CNM and women's health provider and (unknown) (no (unknown) (unknown) Signed By: (units (unk nown) date) unknown) (unknown) (no (unknown) (unknown) Smoking Status: (units (unknown) date) Never smoker unknown) (unknown) (no (unknown) (unknown) States [employer]. (units (u nknown) date) unknown) (unknown) (no (unknown) (unknown) Surgical History (units (unknown) date) (Updated 04/30/22 @ unknown) 18:56 by Shalonda Foote) (unknown) (no (unknown) (unknown) This note may have (units (unknown) date) been all or unknown) partially generated using voice recognition (unknown) (no (unknown) (unknown) Tobacco + (units (unkn own) date) Substance Use unknown) (unknown) (no (unknown) (unknown) Tobacco Status (units (unknown) date) unknown) (unknown) (no (unknown) (unknown) Visit Reasons: ER (units (unknown) date) in [facility] unknown) (unknown) (no (unknown) (unknown) Vitals (units (unkno wn) date) unknown) (unknown) (no (unknown) (unknown) [place] with (units (unknown) date) her . They unknown) moved to the area from [place] last (unknown) (no (unknown) (unknown) Weight 76.204 kg (units (unknown) date) unknown) (unknown) (no (unknown) (unknown) after IUD removal (units (unknown) date) up until 3 months unknown) ago. No bleeding between menses. Patient (unknown) (no (unknown) (unknown) after the visit (units (unknown) date) reviewed article in unknown) UpToDate which recommended annual mammogram (unknown) (no (unknown) (unknown) age for screening. (units (unknown) date) unknown) (unknown) (no (unknown) (unknown) around age 58. (units (unknown) date) Patient herself has unknown) no personal history of cancers. Patient has (unknown) (no (unknown) (unknown) constant (units (unkno wn) date) associated pain. unknown) Her menses had been very regular starting shortly (unknown) (no (unknown) (unknown) currently trying (units (unknown) date) to become licensed unknown) in [place]. is in the [place] (unknown) (no (unknown) (unknown) during the menses. (units (unknown) date) Sometimes menses unknown) are heavy, sometimes not. Reports that she (unknown) (no (unknown) (unknown) genetic (units (unkno wn) date) specialist/counselo unknown) r for a comprehensive consultation if she feels this (unknown) (no (unknown) (unknown) has a plan in (units ( unknown) date) place to get her unknown) pelvic ultrasound.? Follow-up as needed for new (unknown) (no (unknown) (unknown) has had 49 day, 37 (units (unknown) date) day, and 31 day unknown) cycles respectively during this period of (unknown) (no (unknown) (unknown) have occurred. If (units (unknown) date) there are any unknown) questions, please contact the Medical Records (unknown) (no (unknown) (unknown) headache. Also (units (unknown) date) left sided numbness unknown) to face. Ears feel full but denies loss of (unknown) (no (unknown) (unknown) hearing. PCP [facility] (units (unknown) date) [facility] gave her a rx unknown) for Valium 5 mg. 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 (unknown) (no (unknown) (unknown) m/Pap with me. (units (unknown) date) unknown) (unknown) (no (unknown) (unknown) may occur. (units (unk nown) date) Occasional unknown) wrong-word or 'sound-alike' substitutions may have (unknown) (no (unknown) (unknown) not able to fully (units (unknown) date) explore the topic unknown) during the visit due to time constraints but (unknown) (no (unknown) (unknown) not seen a genetic (units (unknown) date) specialist/counselo unknown) r to review recommendations. She (unknown) (no (unknown) (unknown) occurred due to (units (unknown) date) the inherent unknown) limitations of voice recognition software. Please (unknown) (no (unknown) (unknown) or worsening (units (u nknown) date) symptoms prior to unknown) seeing Gynecology.? (unknown) (no (unknown) (unknown) performed there (units (unknown) date) then will take the unknown) report when she sees Ms. Randle. (unknown) (no (unknown) (unknown) positive for CHEK2 (units (unknown) date) gene mutation. Her unknown) mother was diagnosed with breast cancer (unknown) (no (unknown) (unknown) read the note (units ( unknown) date) carefully and unknown) recognize, using context, where these substitutions (unknown) (no (unknown) (unknown) recommendations for (units (unknown) date) individuals who unknown) have some form of CHEK2 gene mutation; I was (unknown) (no (unknown) (unknown) recommendations. (units (unknown) date) She believes it may unknown) be recommended to get breast MRI at her (unknown) (no (unknown) (unknown) required by her (units (unknown) date) insurance although unknown) she has already scheduled her appointment and (unknown) (no (unknown) (unknown) so. She has gotten (units (unknown) date) sharp pains prior unknown) to and just following the menses but not (unknown) (no (unknown) (unknown) software. Although (units (unknown) date) every effort is unknown) made to edit content, mine car dispatcher errors (unknown) (no (unknown) (unknown) staff to passes (units (unknown) date) information onto unknown) the patient and also to offer referral to (unknown) (no (unknown) (unknown) states that in the (units (unknown) date) past she was on MARYLIN unknown) pill for about 9 years. (unknown) (no (unknown) (unknown) sumatriptan (units (un known) date) succinate 25 mg unknown) tablet See Rx Instructions PO .COMPLEX #30 tabs (unknown) (no (unknown) (unknown) this with (units (unkn own) date) gynecology if she unknown) is seeing them still or may schedule well-woman exa (unknown) (no (unknown) (unknown) time. Patient had (units (unknown) date) Mirena IUD until unknown) January 2021 when this was removed due to (unknown) (no (unknown) (unknown) understands she (units (unknown) date) will be starting unknown) colonoscopies earlier than general population (unknown) (no (unknown) (unknown) when she is back (units (unknown) date) in [place] in unknown) April she will get pelvic ultrasound (unknown) (no (unknown) (unknown) which helped the (units (unknown) date) dizziness. unknown) (unknown) (no (unknown) (unknown) will be getting (units (unknown) date) liver MRI for unknown) monitoring of liver nodule. (unknown) (no (unknown) (unknown) with tomography (units (unknown) date) and annual MRI unknown) starting at age 40.? I have asked our nursing (unknown) (no (unknown) (unknown) would be (units (unkno wn) date) beneficial. unknown) Result panel 14 (unknown) (no (unknown) (unknown) (no value) (units (unk nown) date) unknown) (unknown) (no (unknown) (unknown) [id number] (units (unkno wn) date) unknown) (unknown) (no (unknown) (unknown) 05/13/22 [Rx (units (u nknown) date) Confirmed 06/09/22] unknown) (unknown) (no (unknown) (unknown) 06/09/22 (units (unkno wn) date) unknown) (unknown) (no (unknown) (unknown) 14:53 (units (unkno wn) date) unknown) (unknown) (no (unknown) (unknown) 26-year-old female (units (unknown) date) presents to unknown) [facility] care. She lives in [place], (unknown) (no (unknown) (unknown) 27 yo female (units (un known) date) presents for ED unknown) follow up from [facility]. Is still feeling dizzy with (unknown) (no (unknown) (unknown) Age/Sex: 27 / F (units (unknown) date) Date of Service: unknown) (unknown) (no (unknown) (unknown) Allergies (units (unkn own) date) unknown) (unknown) (no (unknown) (unknown) [place], [place] (units ( unknown) date) [id number] unknown) (unknown) (no (unknown) (unknown) Anesthesia (units (unk nown) date) unknown) (unknown) (no (unknown) (unknown) Attending Dr: (units ( unknown) date) Vin HUBER unknown) (unknown) (no (unknown) (unknown) BMI 24.0 (units (unkno wn) date) unknown) (unknown) (no (unknown) (unknown) BP 90/60 (units (unkno wn) date) unknown) (unknown) (no (unknown) (unknown) Back pain, (units (unk nown) date) lumbosacral unknown) (unknown) (no (unknown) (unknown) Blood Pressure (units (unknown) date) Location Lt unknown) brachial (unknown) (no (unknown) (unknown) 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 We spent unknown) time reviewing literature regarding management (unknown) (no (unknown) (unknown) Chief Complaint (units (unknown) date) unknown) (unknown) (no (unknown) (unknown) Chief Complaint: (units (unknown) date) f/u ED visit unknown) (unknown) (no (unknown) (unknown) : 1995 (units (unknown) date) Acct:[id number] unknown) (unknown) (no (unknown) (unknown) July. Patient (units (unknown) date) grew up in unknown) [place]. 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 unknown) (unknown) (no (unknown) (unknown) Details: (units (unkno wn) date) unknown) (unknown) (no (unknown) (unknown) Documented By: (units (unknown) date) Vin Nelson unknown) 06/09/22 1452 (unknown) (no (unknown) (unknown) Draft (units (unkno wn) date) unknown) (unknown) (no (unknown) (unknown) Dysmenorrhea/irreg (units (unknown) date) ular menses:? 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 Follow-up with gastroenterology (unknown) (no (unknown) (unknown) Gene mutation (units ( unknown) date) () unknown) (unknown) (no (unknown) (unknown) 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) (unknown) (no (unknown) (unknown) Grandfather (units (un known) date) Diabetes unknown) mellitus (unknown) (no (unknown) (unknown) Grandmother (units (un known) date) Breast unknown) cancer (unknown) (no (unknown) (unknown) Grandmother (units (un known) date) Stroke unknown) (unknown) (no (unknown) (unknown) CORD[place] comes and goes. (units (unknown) date) no vision change. unknown) some forgetfulness. no slurred speech. (unknown) (no (unknown) (unknown) HPI (units (unkno wn) date) unknown) (unknown) (no (unknown) (unknown) Height 177.8 cm (units (unknown) date) unknown) (unknown) (no (unknown) (unknown) History of heart (units (unknown) date) disease unknown) (unknown) (no (unknown) (unknown) History of (units (unk nown) date) laparoscopy unknown) (-08/03/20) (unknown) (no (unknown) (unknown) Intake Note: (units (u nknown) date) unknown) (unknown) (no (unknown) (unknown) Intake performed (units (unknown) date) by: Estuardo Alejo unknown) (unknown) (no (unknown) (unknown) Intake (units (unkno wn) date) unknown) (unknown) (no (unknown) (unknown) Intake- Clincial (units (unknown) date) Staff unknown) (unknown) (no (unknown) (unknown) Irregular (units (unkn own) date) menstrual cycle unknown) (unknown) (no (unknown) (unknown) Irritable bowel (units (unknown) date) syndrome unknown) (unknown) (no (unknown) (unknown) 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 (unknown) (no (unknown) (unknown) L ear feels full (units (unknown) date) >R. no pain. no unknown) recent illness or fevers. appetitie low. (unknown) (no (unknown) (unknown) Liver nodule (units (u nknown) date) unknown) (unknown) (no (unknown) (unknown) Loc: [facility] (units (unkno wn) date) unknown) (unknown) (no (unknown) (unknown) Low back pain (units ( unknown) date) unknown) (unknown) (no (unknown) (unknown) Medical History (units (unknown) date) (Updated 04/30/22 @ unknown) 18:56 by Shalonda Foote) (unknown) (no (unknown) (unknown) Medications (units (un known) date) unknown) (unknown) (no (unknown) (unknown) Mother Breast (units ( unknown) date) cancer unknown) (unknown) (no (unknown) (unknown) Oxygen Delivery (units (unknown) date) Method room air unknown) (unknown) (no (unknown) (unknown) PFSH (units (unkno wn) date) unknown) (unknown) (no (unknown) (unknown) Past medical (units (u nknown) date) history notable for unknown) CHEK2 gene mutation, follicular nodule (unknown) (no (unknown) (unknown) Patient already (units (unknown) date) has a plan in place unknown) to evaluate/address gynecological issues. (unknown) (no (unknown) (unknown) Patient complains (units (unknown) date) that her menses unknown) have become irregular for the past 3 months or (unknown) (no (unknown) (unknown) Patient has been (units (unknown) date) seen by [facility] gastro who she reports (unknown) (no (unknown) (unknown) Patient reports (units (unknown) date) that 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? She may do (unknown) (no (unknown) (unknown) Patient: (units (unkno wn) date) Linda Moreno unknown) MR#: [id number] (unknown) (no (unknown) (unknown) Penicillins (units (un known) date) Adverse Reaction unknown) (Mild, Verified 06/09/22 14:56) (unknown) (no (unknown) (unknown) Plan (units (unkno wn) date) unknown) (unknown) (no (unknown) (unknown) Position Supine (units (unknown) date) unknown) (unknown) (no (unknown) (unknown) Pulse 73 (units (unkno wn) date) unknown) (unknown) (no (unknown) (unknown) Pulse Oximetry (%) (units (unknown) date) 98 unknown) (unknown) (no (unknown) (unknown) Pulse Source (units (u nknown) date) Monitor unknown) (unknown) (no (unknown) (unknown) Reason For Visit (units (unknown) date) unknown) (unknown) (no (unknown) (unknown) Sciatic leg pain (units (unknown) date) unknown) (unknown) (no (unknown) (unknown) She has an (units (unk nown) date) appointment with unknown) Aparna Randle CNM and women's health provider and (unknown) (no (unknown) (unknown) Signed By: (units (unk nown) date) unknown) (unknown) (no (unknown) (unknown) Smoking Status: (units (unknown) date) Never smoker unknown) (unknown) (no (unknown) (unknown) States [place]. (units (u nknown) date) unknown) (unknown) (no (unknown) (unknown) Surgical History (units (unknown) date) (Updated 04/30/22 @ unknown) 18:56 by Shalonda Foote) (unknown) (no (unknown) (unknown) This note may have (units (unknown) date) been all or unknown) partially generated using voice recognition (unknown) (no (unknown) (unknown) Tobacco + (units (unkn own) date) Substance Use unknown) (unknown) (no (unknown) (unknown) Tobacco Status (units (unknown) date) unknown) (unknown) (no (unknown) (unknown) Visit Reasons: ER (units (unknown) date) in [facility] unknown) (unknown) (no (unknown) (unknown) Vitals (units (unkno wn) date) unknown) (unknown) (no (unknown) (unknown) [place] with (units (unknown) date) her . They unknown) moved to the area from [place] last (unknown) (no (unknown) (unknown) Weight 76.204 kg (units (unknown) date) unknown) (unknown) (no (unknown) (unknown) after IUD removal (units (unknown) date) up until 3 months unknown) ago. No bleeding between menses. Patient (unknown) (no (unknown) (unknown) after the visit (units (unknown) date) reviewed article in unknown) UpToDate which recommended annual mammogram (unknown) (no (unknown) (unknown) age for screening. (units (unknown) date) unknown) (unknown) (no (unknown) (unknown) around age 58. (units (unknown) date) Patient herself has unknown) no personal history of cancers. Patient has (unknown) (no (unknown) (unknown) back home TH doc (units (unknown) date) valium 2.5mg last unknown) night. last night closest to pretty good but (unknown) (no (unknown) (unknown) becoming numb (units ( unknown) date) intermittently R unknown) then L diffusely numb. tingling in fingers and (unknown) (no (unknown) (unknown) cake (units (unkno wn) date) baking/decorating x unknown) 2 weeks. (unknown) (no (unknown) (unknown) constant (units (unkno wn) date) associated pain. unknown) Her menses had been very regular starting shortly (unknown) (no (unknown) (unknown) currently trying (units (unknown) date) to become licensed unknown) in [place]. is in the [place] (unknown) (no (unknown) (unknown) during the menses. (units (unknown) date) Sometimes menses unknown) are heavy, sometimes not. Reports that she (unknown) (no (unknown) (unknown) exam/Pap with me. (units (unknown) date) unknown) (unknown) (no (unknown) (unknown) feels like she is (units (unknown) date) rocking, not that unknown) the room is spinning. (unknown) (no (unknown) (unknown) genetic (units (unkno wn) date) specialist/counselo unknown) r for a comprehensive consultation if she feels this (unknown) (no (unknown) (unknown) has a plan in (units ( unknown) date) place to get her unknown) pelvic ultrasound.? Follow-up as needed for new (unknown) (no (unknown) (unknown) has had 49 day, 37 (units (unknown) date) day, and 31 day unknown) cycles respectively during this period of (unknown) (no (unknown) (unknown) has not had this (units (unknown) date) before. unknown) (unknown) (no (unknown) (unknown) have occurred. If (units (unknown) date) there are any unknown) questions, please contact the Medical Records (unknown) (no (unknown) (unknown) headache. Also (units (unknown) date) left sided numbness unknown) to face. Ears feel full but denies loss of (unknown) (no (unknown) (unknown) hearing. PCP [place] (units (unknown) date) [facility] gave her a rx unknown) for Valium 5 mg. Took 1/2 tablet last night (unknown) (no (unknown) (unknown) hyperplasia on (units (unknown) date) liver, micro bowel unknown) perforation status post abdominal laparoscopy (unknown) (no (unknown) (unknown) in ED sumatriptan (units (unknown) date) helped some. tried unknown) it after that but did not help. (unknown) (no (unknown) (unknown) including getting (units (unknown) date) imaging per their unknown) recommendations.? (unknown) (no (unknown) (unknown) may occur. (units (unk nown) date) Occasional unknown) wrong-word or 'sound-alike' substitutions may have (unknown) (no (unknown) (unknown) nauseous, no (units (u nknown) date) vomiting. unknown) (unknown) (no (unknown) (unknown) no head trauma. no (units (unknown) date) recent travel. unknown) working 6 days/weekly. (unknown) (no (unknown) (unknown) not able to fully (units (unknown) date) explore the topic unknown) during the visit due to time constraints but (unknown) (no (unknown) (unknown) not seen a genetic (units (unknown) date) specialist/counselo unknown) r to review recommendations. She (unknown) (no (unknown) (unknown) occurred due to (units (unknown) date) the inherent unknown) limitations of voice recognition software. Please (unknown) (no (unknown) (unknown) or worsening (units (u nknown) date) symptoms prior to unknown) seeing Gynecology.? (unknown) (no (unknown) (unknown) performed there (units (unknown) date) then will take the unknown) report when she sees Ms. Randle. (unknown) (no (unknown) (unknown) positive for CHEK2 (units (unknown) date) gene mutation. Her unknown) mother was diagnosed with breast cancer (unknown) (no (unknown) (unknown) read the note (units ( unknown) date) carefully and unknown) recognize, using context, where these substitutions (unknown) (no (unknown) (unknown) recommendations for (units (unknown) date) individuals who unknown) have some form of CHEK2 gene mutation; I was (unknown) (no (unknown) (unknown) recommendations. (units (unknown) date) She believes it may unknown) be recommended to get breast MRI at her (unknown) (no (unknown) (unknown) required by her (units (unknown) date) insurance although unknown) she has already scheduled her appointment and (unknown) (no (unknown) (unknown) so. She has gotten (units (unknown) date) sharp pains prior unknown) to and just following the menses but not (unknown) (no (unknown) (unknown) software. 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 sat down. came and went. face (unknown) (no (unknown) (unknown) states that in the (units (unknown) date) past she was on MARYLIN unknown) pill for about 9 years. 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 unknown) (unknown) (no (unknown) (unknown) sumatriptan (units (un known) date) succinate 25 mg unknown) tablet See Rx Instructions PO .COMPLEX #30 tabs (unknown) (no (unknown) (unknown) this mornign bad (units (unknown) date) again. unknown) (unknown) (no (unknown) (unknown) this with (units (unkn own) date) gynecology if she unknown) is seeing them still or may schedule well-woman (unknown) (no (unknown) (unknown) time. Patient had (units (unknown) date) Mirena IUD until unknown) January 2021 when this was removed due to (unknown) (no (unknown) (unknown) toes. (units (unkno wn) date) unknown) (unknown) (no (unknown) (unknown) understands she (units (unknown) date) will be starting unknown) colonoscopies earlier than general population (unknown) (no (unknown) (unknown) when she is back (units (unknown) date) in [place] in unknown) April she will get pelvic ultrasound (unknown) (no (unknown) (unknown) which helped the (units (unknown) date) dizziness. unknown) (unknown) (no (unknown) (unknown) will be getting (units (unknown) date) liver MRI for unknown) monitoring of liver nodule. (unknown) (no (unknown) (unknown) with normal (units (un known) date) migraines it is unknown) difference. (unknown) (no (unknown) (unknown) with tomography (units (unknown) date) and annual MRI unknown) starting at age 40.? I have asked our nursing (unknown) (no (unknown) (unknown) would be (units (unkno wn) date) beneficial. unknown) Result panel 15 (unknown) (no (unknown) (unknown) (no value) (units (unk nown) date) unknown) (unknown) (no (unknown) (unknown) [id number] (units (unkno wn) date) unknown) (unknown) (no (unknown) (unknown) 05/13/22 [Rx (units (u nknown) date) Confirmed 06/09/22] unknown) (unknown) (no (unknown) (unknown) 06/09/22 (units (unkno wn) date) unknown) (unknown) (no (unknown) (unknown) 14:53 (units (unkno wn) date) unknown) (unknown) (no (unknown) (unknown) 26-year-old female (units (unknown) date) presents to unknown) [facility]. She lives in [place], (unknown) (no (unknown) (unknown) 27 yo female (units (un known) date) presents for ED unknown) follow up from [facility]. Is still feeling dizzy with (unknown) (no (unknown) (unknown) Age/Sex: 27 / F (units (unknown) date) Date of Service: unknown) (unknown) (no (unknown) (unknown) Allergies (units (unkn own) date) unknown) (unknown) (no (unknown) (unknown) [place], [place] (units ( unknown) date) [id number] unknown) (unknown) (no (unknown) (unknown) Anesthesia (units (unk nown) date) unknown) (unknown) (no (unknown) (unknown) Attending Dr: (units ( unknown) date) Vin HUBER unknown) (unknown) (no (unknown) (unknown) BMI 24.0 (units (unkno wn) date) unknown) (unknown) (no (unknown) (unknown) BP 90/60 (units (unkno wn) date) unknown) (unknown) (no (unknown) (unknown) Back pain, (units (unk nown) date) lumbosacral unknown) (unknown) (no (unknown) (unknown) Blood Pressure (units (unknown) date) Location Lt unknown) brachial (unknown) (no (unknown) (unknown) 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 We spent unknown) time reviewing literature regarding management (unknown) (no (unknown) (unknown) Chief Complaint (units (unknown) date) unknown) (unknown) (no (unknown) (unknown) Chief Complaint: (units (unknown) date) f/u ED visit unknown) (unknown) (no (unknown) (unknown) : 1995 (units (unknown) date) Acct:[id number] unknown) (unknown) (no (unknown) (unknown) [place]. Patient (units (unknown) date) grew up in unknown) [place]. 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 unknown) (unknown) (no (unknown) (unknown) Details: (units (unkno wn) date) unknown) (unknown) (no (unknown) (unknown) Documented By: (units (unknown) date) Vin Nelson unknown) 06/09/22 1452 (unknown) (no (unknown) (unknown) Draft (units (unkno wn) date) unknown) (unknown) (no (unknown) (unknown) Dysmenorrhea/irreg (units (unknown) date) ular menses:? 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 (units (unknown) date) no vision change. unknown) some forgetfulness. no slurred speech. (unknown) (no (unknown) (unknown) HPI (units (unkno wn) date) unknown) (unknown) (no (unknown) (unknown) Height 177.8 cm (units (unknown) date) unknown) (unknown) (no (unknown) (unknown) History of heart (units (unknown) date) disease unknown) (unknown) (no (unknown) (unknown) History of (units (unk nown) date) laparoscopy unknown) (-08/03/20) (unknown) (no (unknown) (unknown) Intake Note: (units (u nknown) date) unknown) (unknown) (no (unknown) (unknown) Intake performed (units (unknown) date) by: Estuardo Alejo unknown) (unknown) (no (unknown) (unknown) Intake (units (unkno wn) date) unknown) (unknown) (no (unknown) (unknown) Intake- Clincial (units (unknown) date) Staff unknown) (unknown) (no (unknown) (unknown) Irregular (units (unkn own) date) menstrual cycle unknown) (unknown) (no (unknown) (unknown) Irritable bowel (units (unknown) date) syndrome unknown) (unknown) (no (unknown) (unknown) 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 (unknown) (no (unknown) (unknown) L ear feels full (units (unknown) date) >R. no pain. no unknown) recent illness or fevers. appetitie low. (unknown) (no (unknown) (unknown) Liver nodule (units (u nknown) date) unknown) (unknown) (no (unknown) (unknown) Loc: [facility] (units (unkno wn) date) unknown) (unknown) (no (unknown) (unknown) Low back pain (units ( unknown) date) unknown) (unknown) (no (unknown) (unknown) Medical History (units (unknown) date) (Updated 04/30/22 @ unknown) 18:56 by Shalonda Foote) (unknown) (no (unknown) (unknown) Medications (units (un known) date) unknown) (unknown) (no (unknown) (unknown) Mother Breast (units ( unknown) date) cancer unknown) (unknown) (no (unknown) (unknown) Oxygen Delivery (units (unknown) date) Method room air unknown) (unknown) (no (unknown) (unknown) PFSH (units (unkno wn) date) unknown) (unknown) (no (unknown) (unknown) Past medical (units (u nknown) date) history notable for unknown) CHEK2 gene mutation, follicular nodule (unknown) (no (unknown) (unknown) Patient already (units (unknown) date) has a plan in place unknown) to evaluate/address gynecological issues. 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 She may do (unknown) (no (unknown) (unknown) Patient: (units (unkno wn) date) EdgardoLinda Rich unknown) MR#: [id number] (unknown) (no (unknown) (unknown) Penicillins (units (un known) date) Adverse Reaction unknown) (Mild, Verified 06/09/22 14:56) (unknown) (no (unknown) (unknown) Plan (units (unkno wn) date) unknown) (unknown) (no (unknown) (unknown) Position Supine (units (unknown) date) unknown) (unknown) (no (unknown) (unknown) Pulse 73 (units (unkno wn) date) unknown) (unknown) (no (unknown) (unknown) Pulse Oximetry (%) (units (unknown) date) 98 unknown) (unknown) (no (unknown) (unknown) Pulse Source (units (u nknown) date) Monitor unknown) (unknown) (no (unknown) (unknown) Reason For Visit (units (unknown) date) unknown) (unknown) (no (unknown) (unknown) Sciatic leg pain (units (unknown) date) unknown) (unknown) (no (unknown) (unknown) She has an (units (unk nown) date) appointment with unknown) Aparna Randle CNM and women's health provider and (unknown) (no (unknown) (unknown) Signed By: (units (unk nown) date) unknown) (unknown) (no (unknown) (unknown) Smoking Status: (units (unknown) date) Never smoker unknown) (unknown) (no (unknown) (unknown) States [place]. (units (u nknown) date) unknown) (unknown) (no (unknown) (unknown) Surgical History (units (unknown) date) (Updated 04/30/22 @ unknown) 18:56 by Shalonda Foote) (unknown) (no (unknown) (unknown) This note may have (units (unknown) date) been all or unknown) partially generated using voice recognition (unknown) (no (unknown) (unknown) Tobacco + (units (unkn own) date) Substance Use unknown) (unknown) (no (unknown) (unknown) Tobacco Status (units (unknown) date) unknown) (unknown) (no (unknown) (unknown) Visit Reasons: ER (units (unknown) date) in [facility] unknown) (unknown) (no (unknown) (unknown) Vitals (units (unkno wn) date) unknown) (unknown) (no (unknown) (unknown) Young with (units (unknown) date) her . They unknown) moved to the area from [place] last (unknown) (no (unknown) (unknown) Weight 76.204 kg (units (unknown) date) unknown) (unknown) (no (unknown) (unknown) after IUD removal (units (unknown) date) up until 3 months unknown) ago. No bleeding between menses. Patient (unknown) (no (unknown) (unknown) after the visit (units (unknown) date) reviewed article in unknown) UpTo[employer] which recommended annual mammogram (unknown) (no (unknown) (unknown) age for screening. (units (unknown) date) unknown) (unknown) (no (unknown) (unknown) around age 58. (units (unknown) date) Patient herself has unknown) no personal history of cancers. Patient has (unknown) (no (unknown) (unknown) back home TH doc (units (unknown) date) valium 2.5mg last unknown) night. last night closest to pretty good but (unknown) (no (unknown) (unknown) becoming numb (units ( unknown) date) intermittently R unknown) then L diffusely numb. tingling in fingers and (unknown) (no (unknown) (unknown) cake (units (unkno wn) date) baking/decorating x unknown) 2 weeks. (unknown) (no (unknown) (unknown) constant (units (unkno wn) date) associated pain. unknown) Her menses had been very regular starting shortly (unknown) (no (unknown) (unknown) currently trying (units (unknown) date) to become licensed unknown) in [place] ([place] (unknown) (unknown) during the menses. (units (unknown) date) Sometimes menses unknown) are heavy, sometimes not. Reports that she (unknown) (no (unknown) (unknown) exam/Pap with me. (units (unknown) date) unknown) (unknown) (no (unknown) (unknown) feels like she is (units (unknown) date) rocking, not that unknown) the room is spinning. (unknown) (no (unknown) (unknown) genetic (units (unkno wn) date) specialist/counselo unknown) r for a comprehensive consultation if she feels this (unknown) (no (unknown) (unknown) hands knuckles (units (unknown) date) wrists knees unknown) ankles. no autoimmune d/o in family. (unknown) (no (unknown) (unknown) has a plan in (units ( unknown) date) place to get her unknown) pelvic ultrasound.? Follow-up as needed for new (unknown) (no (unknown) (unknown) has had 49 day, 37 (units (unknown) date) day, and 31 day unknown) cycles respectively during this period of (unknown) (no (unknown) (unknown) has not had this (units (unknown) date) before. unknown) (unknown) (no (unknown) (unknown) have occurred. If (units (unknown) date) there are any unknown) questions, please contact the Medical Records (unknown) (no (unknown) (unknown) headache. Also (units (unknown) date) left sided numbness unknown) to face. Ears feel full but denies loss of (unknown) (no (unknown) (unknown) hearing. PCP [place]units (unknown) date) [place] gave her a rx unknown) for Valium 5 mg. Took 1/2 tablet last night (unknown) (no (unknown) (unknown) hyperplasia on (units (unknown) date) liver, micro bowel unknown) perforation status post abdominal laparoscopy (unknown) (no (unknown) (unknown) in ED sumatriptan (units (unknown) date) helped some. tried unknown) it after that but did not help. (unknown) (no (unknown) (unknown) including getting (units (unknown) date) imaging per their unknown) recommendations.? (unknown) (no (unknown) (unknown) may occur. (units (unk nown) date) Occasional unknown) wrong-word or 'sound-alike' substitutions may have (unknown) (no (unknown) (unknown) nauseous, no (units (u nknown) date) vomiting. unknown) (unknown) (no (unknown) (unknown) no head trauma. no (units (unknown) date) recent travel. unknown) working 6 days/weekly. (unknown) (no (unknown) (unknown) not able to fully (units (unknown) date) explore the topic unknown) during the visit due to time constraints but (unknown) (no (unknown) (unknown) not seen a genetic (units (unknown) date) specialist/counselo unknown) r to review recommendations. She (unknown) (no (unknown) (unknown) occurred due to (units (unknown) date) the inherent unknown) limitations of voice recognition software. Please (unknown) (no (unknown) (unknown) or worsening (units (u nknown) date) symptoms prior to unknown) seeing Gynecology.? (unknown) (no (unknown) (unknown) performed there (units (unknown) date) then will take the unknown) report when she sees Ms. Randle. (unknown) (no (unknown) (unknown) positive for CHEK2 (units (unknown) date) gene mutation. Her unknown) mother was diagnosed with breast cancer (unknown) (no (unknown) (unknown) read the note (units ( unknown) date) carefully and unknown) recognize, using context, where these substitutions (unknown) (no (unknown) (unknown) recommendations for (units (unknown) date) individuals who unknown) have some form of CHEK2 gene mutation; I was (unknown) (no (unknown) (unknown) recommendations. (units (unknown) date) She believes it may unknown) be recommended to get breast MRI at her (unknown) (no (unknown) (unknown) required by her (units (unknown) date) insurance although unknown) she has already scheduled her appointment and (unknown) (no (unknown) (unknown) so. She has gotten (units (unknown) date) sharp pains prior unknown) to and just following the menses but not (unknown) (no (unknown) (unknown) software. 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 sat down. came and went. face (unknown) (no (unknown) (unknown) states that in the (units (unknown) date) past she was on MARYLIN unknown) pill for about 9 years. 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 unknown) (unknown) (no (unknown) (unknown) sumatriptan (units (un known) date) succinate 25 mg unknown) tablet See Rx Instructions PO .COMPLEX #30 tabs (unknown) (no (unknown) (unknown) this mornign bad (units (unknown) date) again. unknown) (unknown) (no (unknown) (unknown) this with (units (unkn own) date) gynecology if she unknown) is seeing them still or may schedule well-woman (unknown) (no (unknown) (unknown) time. Patient had (units (unknown) date) Mirena IUD until unknown) January 2021 when this was removed due to (unknown) (no (unknown) (unknown) toes. (units (unkno wn) date) unknown) (unknown) (no (unknown) (unknown) understands she (units (unknown) date) will be starting unknown) colonoscopies earlier than general population (unknown) (no (unknown) (unknown) when she is back (units (unknown) date) in [place] in unknown) April she will get pelvic ultrasound (unknown) (no (unknown) (unknown) which helped the (units (unknown) date) dizziness. unknown) (unknown) (no (unknown) (unknown) will be getting (units (unknown) date) liver MRI for unknown) monitoring of liver nodule. (unknown) (no (unknown) (unknown) with normal (units (un known) date) migraines it is unknown) difference. (unknown) (no (unknown) (unknown) with tomography (units (unknown) date) and annual MRI unknown) starting at age 40.? I have asked our nursing (unknown) (no (unknown) (unknown) would be (units (unkno wn) date) beneficial. unknown) Result panel 16 (unknown) (no (unknown) (unknown) (no value) (units (unk nown) date) unknown) (unknown) (no (unknown) (unknown) [id number] (units (unkno wn) date) unknown) (unknown) (no (unknown) (unknown) 05/13/22 [Rx (units (u nknown) date) Confirmed 06/09/22] unknown) (unknown) (no (unknown) (unknown) 06/09/22 (units (unkno wn) date) unknown) (unknown) (no (unknown) (unknown) 14:53 (units (unkno wn) date) unknown) (unknown) (no (unknown) (unknown) 26-year-old female (units (unknown) date) presents to unknown) [facility]. She lives in [place], (unknown) (no (unknown) (unknown) 27 yo female (units (un known) date) presents for ED unknown) follow up from [facility]. Is still feeling dizzy with (unknown) (no (unknown) (unknown) Age/Sex: 27 / F (units (unknown) date) Date of Service: unknown) (unknown) (no (unknown) (unknown) Allergies (units (unkn own) date) unknown) (unknown) (no (unknown) (unknown) [place], [place] (units ( unknown) date) [id number] unknown) (unknown) (no (unknown) (unknown) Anesthesia (units (unk nown) date) unknown) (unknown) (no (unknown) (unknown) Attending Dr: (units ( unknown) date) Vin HUBER unknown) (unknown) (no (unknown) (unknown) BMI 24.0 (units (unkno wn) date) unknown) (unknown) (no (unknown) (unknown) BP 90/60 (units (unkno wn) date) unknown) (unknown) (no (unknown) (unknown) Back pain, (units (unk nown) date) lumbosacral unknown) (unknown) (no (unknown) (unknown) Blood Pressure (units (unknown) date) Location Lt unknown) brachial (unknown) (no (unknown) (unknown) 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 We spent unknown) time reviewing literature regarding management (unknown) (no (unknown) (unknown) Chief Complaint (units (unknown) date) unknown) (unknown) (no (unknown) (unknown) Chief Complaint: (units (unknown) date) f/u ED visit unknown) (unknown) (no (unknown) (unknown) : 1995 (units (unknown) date) Acct:[id number] unknown) (unknown) (no (unknown) (unknown) July. Patient (units (unknown) date) grew up in unknown) [place]. 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 unknown) (unknown) (no (unknown) (unknown) Details: (units (unkno wn) date) unknown) (unknown) (no (unknown) (unknown) Documented By: (units (unknown) date) Vin Nelson unknown) 06/09/22 1452 (unknown) (no (unknown) (unknown) Draft (units (unkno wn) date) unknown) (unknown) (no (unknown) (unknown) Dysmenorrhea/irreg (units (unknown) date) ular menses:? 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 Follow-up with gastroenterology (unknown) (no (unknown) (unknown) Gene mutation (units ( unknown) date) () unknown) (unknown) (no (unknown) (unknown) 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) (unknown) (no (unknown) (unknown) Grandfather (units (un known) date) Diabetes unknown) mellitus (unknown) (no (unknown) (unknown) Grandmother (units (un known) date) Breast unknown) cancer (unknown) (no (unknown) (unknown) Grandmother (units (un known) date) Stroke unknown) (unknown) (no (unknown) (unknown) CORDOVA comes and goes. (units (unknown) date) no vision change. unknown) some forgetfulness. no slurred speech. (unknown) (no (unknown) (unknown) HPI (units (unkno wn) date) unknown) (unknown) (no (unknown) (unknown) Height 177.8 cm (units (unknown) date) unknown) (unknown) (no (unknown) (unknown) History of heart (units (unknown) date) disease unknown) (unknown) (no (unknown) (unknown) History of (units (unk nown) date) laparoscopy unknown) (-08/03/20) (unknown) (no (unknown) (unknown) Intake Note: (units (u nknown) date) unknown) (unknown) (no (unknown) (unknown) Intake performed (units (unknown) date) by: Estuardo Alejo unknown) (unknown) (no (unknown) (unknown) Intake (units (unkno wn) date) unknown) (unknown) (no (unknown) (unknown) Intake- Clincial (units (unknown) date) Staff unknown) (unknown) (no (unknown) (unknown) Irregular (units (unkn own) date) menstrual cycle unknown) (unknown) (no (unknown) (unknown) Irritable bowel (units (unknown) date) syndrome unknown) (unknown) (no (unknown) (unknown) 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 (unknown) (no (unknown) (unknown) L ear feels full (units (unknown) date) >R. no pain. no unknown) recent illness or fevers. appetitie low. (unknown) (no (unknown) (unknown) Liver nodule (units (u nknown) date) unknown) (unknown) (no (unknown) (unknown) Loc: [facility] (units (unkno wn) date) unknown) (unknown) (no (unknown) (unknown) Low back pain (units ( unknown) date) unknown) (unknown) (no (unknown) (unknown) Medical History (units (unknown) date) (Updated 04/30/22 @ unknown) 18:56 by Shalonda Foote) (unknown) (no (unknown) (unknown) Medications (units (un known) date) unknown) (unknown) (no (unknown) (unknown) Mother Breast (units ( unknown) date) cancer unknown) (unknown) (no (unknown) (unknown) Oxygen Delivery (units (unknown) date) Method room air unknown) (unknown) (no (unknown) (unknown) PFSH (units (unkno wn) date) unknown) (unknown) (no (unknown) (unknown) Past medical (units (u nknown) date) history notable for unknown) CHEK2 gene mutation, follicular nodule (unknown) (no (unknown) (unknown) Patient already (units (unknown) date) has a plan in place unknown) to evaluate/address gynecological issues. (unknown) (no (unknown) (unknown) Patient complains (units (unknown) date) that her menses unknown) have become irregular for the past 3 months or (unknown) (no (unknown) (unknown) Patient has been (units (unknown) date) seen by [facility] who she reports (unknown) (no (unknown) (unknown) Patient reports (units (unknown) date) that 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? She may do (unknown) (no (unknown) (unknown) Patient: (units (unkno wn) date) Linda Moreno unknown) MR#: [id number] (unknown) (no (unknown) (unknown) Penicillins (units (un known) date) Adverse Reaction unknown) (Mild, Verified 06/09/22 14:56) (unknown) (no (unknown) (unknown) Plan (units (unkno wn) date) unknown) (unknown) (no (unknown) (unknown) Position Supine (units (unknown) date) unknown) (unknown) (no (unknown) (unknown) Pulse 73 (units (unkno wn) date) unknown) (unknown) (no (unknown) (unknown) Pulse Oximetry (%) (units (unknown) date) 98 unknown) (unknown) (no (unknown) (unknown) Pulse Source (units (u nknown) date) Monitor unknown) (unknown) (no (unknown) (unknown) Reason For Visit (units (unknown) date) unknown) (unknown) (no (unknown) (unknown) Sciatic leg pain (units (unknown) date) unknown) (unknown) (no (unknown) (unknown) She has an (units (unk nown) date) appointment with unknown) Aparna Randle CNM and women's health provider and (unknown) (no (unknown) (unknown) Signed By: (units (unk nown) date) unknown) (unknown) (no (unknown) (unknown) Smoking Status: (units (unknown) date) Never smoker unknown) (unknown) (no (unknown) (unknown) States [place]. (units (u nknown) date) unknown) (unknown) (no (unknown) (unknown) Surgical History (units (unknown) date) (Updated 04/30/22 @ unknown) 18:56 by Shalonda Foote) (unknown) (no (unknown) (unknown) This note may have (units (unknown) date) been all or unknown) partially generated using voice recognition (unknown) (no (unknown) (unknown) Tobacco + (units (unkn own) date) Substance Use unknown) (unknown) (no (unknown) (unknown) Tobacco Status (units (unknown) date) unknown) (unknown) (no (unknown) (unknown) Visit Reasons: ER (units (unknown) date) in [facility] unknown) (unknown) (no (unknown) (unknown) Vitals (units (unkno wn) date) unknown) (unknown) (no (unknown) (unknown) Young with (units (unknown) date) her . They unknown) moved to the area from [place] last (unknown) (no (unknown) (unknown) Weight 76.204 kg (units (unknown) date) unknown) (unknown) (no (unknown) (unknown) after IUD removal (units (unknown) date) up until 3 months unknown) ago. No bleeding between menses. Patient (unknown) (no (unknown) (unknown) after the visit (units (unknown) date) reviewed article in unknown) UpToDate which recommended annual mammogram (unknown) (no (unknown) (unknown) age for screening. (units (unknown) date) unknown) (unknown) (no (unknown) (unknown) around age 58. (units (unknown) date) Patient herself has unknown) no personal history of cancers. Patient has (unknown) (no (unknown) (unknown) back home TH doc (units (unknown) date) valium 2.5mg last unknown) night. last night closest to pretty good but (unknown) (no (unknown) (unknown) becoming numb (units ( unknown) date) intermittently R unknown) then L diffusely numb. tingling in fingers and (unknown) (no (unknown) (unknown) cake (units (unkno wn) date) baking/decorating x unknown) 2 weeks. (unknown) (no (unknown) (unknown) constant (units (unkno wn) date) associated pain. unknown) Her menses had been very regular starting shortly (unknown) (no (unknown) (unknown) currently trying (units (unknown) date) to become licensed unknown) in [place] (no (unknown) (unknown) during the menses. (units (unknown) date) Sometimes menses unknown) are heavy, sometimes not. Reports that she (unknown) (no (unknown) (unknown) exam/Pap with me. (units (unknown) date) unknown) (unknown) (no (unknown) (unknown) feels like she is (units (unknown) date) rocking, not that unknown) the room is spinning. (unknown) (no (unknown) (unknown) genetic (units (unkno wn) date) specialist/counselo unknown) r for a comprehensive consultation if she feels this (unknown) (no (unknown) (unknown) hands knuckles (units (unknown) date) wrists knees unknown) ankles. no autoimmune d/o in family. (unknown) (no (unknown) (unknown) has a plan in (units ( unknown) date) place to get her unknown) pelvic ultrasound.? Follow-up as needed for new (unknown) (no (unknown) (unknown) has had 49 day, 37 (units (unknown) date) day, and 31 day unknown) cycles respectively during this period of (unknown) (no (unknown) (unknown) has not had this (units (unknown) date) before. unknown) (unknown) (no (unknown) (unknown) have occurred. If (units (unknown) date) there are any unknown) questions, please contact the Medical Records (unknown) (no (unknown) (unknown) headache. Also (units (unknown) date) left sided numbness unknown) to face. Ears feel full but denies loss of (unknown) (no (unknown) (unknown) hearing. PCP back (units (unknown) date) [place] gave her a rx unknown) for Valium 5 mg. Took 1/2 tablet last night (unknown) (no (unknown) (unknown) hyperplasia on (units (unknown) date) liver, micro bowel unknown) perforation status post abdominal laparoscopy (unknown) (no (unknown) (unknown) in ED sumatriptan (units (unknown) date) helped some. tried unknown) it after that but did not help. (unknown) (no (unknown) (unknown) including getting (units (unknown) date) imaging per their unknown) recommendations.? (unknown) (no (unknown) (unknown) may occur. (units (unk nown) date) Occasional unknown) wrong-word or 'sound-alike' substitutions may have (unknown) (no (unknown) (unknown) nauseous, no (units (u nknown) date) vomiting. unknown) (unknown) (no (unknown) (unknown) no head trauma. no (units (unknown) date) recent travel. unknown) working 6 days/weekly. (unknown) (no (unknown) (unknown) not able to fully (units (unknown) date) explore the topic unknown) during the visit due to time constraints but (unknown) (no (unknown) (unknown) not seen a genetic (units (unknown) date) specialist/counselo unknown) r to review recommendations. She (unknown) (no (unknown) (unknown) occurred due to (units (unknown) date) the inherent unknown) limitations of voice recognition software. Please (unknown) (no (unknown) (unknown) or worsening (units (u nknown) date) symptoms prior to unknown) seeing Gynecology.? (unknown) (no (unknown) (unknown) performed there (units (unknown) date) then will take the unknown) report when she sees Ms. Randle. (unknown) (no (unknown) (unknown) positive for CHEK2 (units (unknown) date) gene mutation. Her unknown) mother was diagnosed with breast cancer (unknown) (no (unknown) (unknown) read the note (units ( unknown) date) carefully and unknown) recognize, using context, where these substitutions (unknown) (no (unknown) (unknown) recommendations for (units (unknown) date) individuals who unknown) have some form of CHEK2 gene mutation; I was (unknown) (no (unknown) (unknown) recommendations. (units (unknown) date) She believes it may unknown) be recommended to get breast MRI at her (unknown) (no (unknown) (unknown) required by her (units (unknown) date) insurance although unknown) she has already scheduled her appointment and (unknown) (no (unknown) (unknown) so. She has gotten (units (unknown) date) sharp pains prior unknown) to and just following the menses but not (unknown) (no (unknown) (unknown) software. 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 sat down. came and went. face (unknown) (no (unknown) (unknown) states that in the (units (unknown) date) past she was on MARYLIN unknown) pill for about 9 years. 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 unknown) (unknown) (no (unknown) (unknown) sumatriptan (units (un known) date) succinate 25 mg unknown) tablet See Rx Instructions PO .COMPLEX #30 tabs (unknown) (no (unknown) (unknown) this mornign bad (units (unknown) date) again. unknown) (unknown) (no (unknown) (unknown) this with (units (unkn own) date) gynecology if she unknown) is seeing them still or may schedule well-woman (unknown) (no (unknown) (unknown) time. Patient had (units (unknown) date) Mirena IUD until unknown) January 2021 when this was removed due to (unknown) (no (unknown) (unknown) toes. (units (unkno wn) date) unknown) (unknown) (no (unknown) (unknown) tried milly (units (un known) date) maneuver did unknown) nothing. (unknown) (no (unknown) (unknown) understands she (units (unknown) date) will be starting unknown) colonoscopies earlier than general population (unknown) (no (unknown) (unknown) when she is back (units (unknown) date) in [place] in unknown) April she will get pelvic ultrasound (unknown) (no (unknown) (unknown) which helped the (units (unknown) date) dizziness. unknown) (unknown) (no (unknown) (unknown) will be getting (units (unknown) date) liver MRI for unknown) monitoring of liver nodule. (unknown) (no (unknown) (unknown) with normal (units (un known) date) migraines it is unknown) difference. (unknown) (no (unknown) (unknown) with tomography (units (unknown) date) and annual MRI unknown) starting at age 40.? I have asked our nursing (unknown) (no (unknown) (unknown) would be (units (unkno wn) date) beneficial. unknown) Result panel 17 (unknown) (no (unknown) (unknown) (no value) (units (unk nown) date) unknown) (unknown) (no (unknown) (unknown) (1) Vertigo: (units (u nknown) date) unknown) (unknown) (no (unknown) (unknown) (2) Tingling: (units ( unknown) date) unknown) (unknown) (no (unknown) (unknown) (3) Migraine: (units ( unknown) date) unknown) (unknown) (no (unknown) (unknown) [id number] (units (unkno wn) date) unknown) (unknown) (no (unknown) (unknown) 06/09/22 (units (unkno wn) date) unknown) (unknown) (no (unknown) (unknown) 06/09/22] (units (unkn own) date) unknown) (unknown) (no (unknown) (unknown) 14:53 (units (unkno wn) date) unknown) (unknown) (no (unknown) (unknown) 26-year-old female (units (unknown) date) presents to unknown) [facility] care. She lives in [place], (unknown) (no (unknown) (unknown) 27 yo female (units (un known) date) presents for ED unknown) follow up from [facility]. Is still feeling dizzy with (unknown) (no (unknown) (unknown) Age/Sex: 27 / F (units (unknown) date) Date of Service: unknown) (unknown) (no (unknown) (unknown) Allergies (units (unkn own) date) unknown) (unknown) (no (unknown) (unknown) [place], [place] (units ( unknown) date) [id number] unknown) (unknown) (no (unknown) (unknown) Anesthesia (units (unk nown) date) unknown) (unknown) (no (unknown) (unknown) Assessment + Plan (units (unknown) date) unknown) (unknown) (no (unknown) (unknown) Attending Dr: (units ( unknown) date) Vin HUBER unknown) (unknown) (no (unknown) (unknown) BMI 24.0 (units (unkno wn) date) unknown) (unknown) (no (unknown) (unknown) BP 90/60 (units (unkno wn) date) unknown) (unknown) (no (unknown) (unknown) Back pain, (units (unk nown) date) lumbosacral unknown) (unknown) (no (unknown) (unknown) Blood Pressure (units (unknown) date) Location Lt unknown) brachial (unknown) (no (unknown) (unknown) 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 We spent unknown) time reviewing literature regarding management (unknown) (no (unknown) (unknown) Chief Complaint (units (unknown) date) unknown) (unknown) (no (unknown) (unknown) Chief Complaint: (units (unknown) date) f/u ED visit unknown) (unknown) (no (unknown) (unknown) Confirmed (units (unkn own) date) 06/09/22] unknown) (unknown) (no (unknown) (unknown) : 1995 (units (unknown) date) Acct:[id number] unknown) (unknown) (no (unknown) (unknown) July. Patient (units (unknown) date) grew up in unknown) [place]. 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 unknown) (unknown) (no (unknown) (unknown) Details: (units (unkno wn) date) unknown) (unknown) (no (unknown) (unknown) Discontinued (units (u nknown) date) Reason: Dose Change unknown) take 1 tab at onset of headache; if no (unknown) (no (unknown) (unknown) Discontinued (units (u nknown) date) unknown) (unknown) (no (unknown) (unknown) Documented By: (units (unknown) date) Vin Nelson unknown) 06/09/22 1452 (unknown) (no (unknown) (unknown) Draft (units (unkno wn) date) unknown) (unknown) (no (unknown) (unknown) Dysmenorrhea/irreg (units (unknown) date) ular menses:? 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 Follow-up with gastroenterology (unknown) (no (unknown) (unknown) For first 4 days (units (unknown) date) take one-half tab unknown) daily prior to increasing to 1 tab daily 5 (unknown) (no (unknown) (unknown) Gene mutation (units ( unknown) date) () unknown) (unknown) (no (unknown) (unknown) 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) (unknown) (no (unknown) (unknown) Grandfather (units (un known) date) Diabetes unknown) mellitus (unknown) (no (unknown) (unknown) Grandmother (units (un known) date) Breast unknown) cancer (unknown) (no (unknown) (unknown) Grandmother (units (un known) date) Stroke unknown) (unknown) (no (unknown) (unknown) CORDOVA comes and goes. (units (unknown) date) no vision change. unknown) some forgetfulness. no slurred speech. (unknown) (no (unknown) (unknown) HPI (units (unkno wn) date) unknown) (unknown) (no (unknown) (unknown) Height 177.8 cm (units (unknown) date) unknown) (unknown) (no (unknown) (unknown) History of heart (units (unknown) date) disease unknown) (unknown) (no (unknown) (unknown) History of (units (unk nown) date) laparoscopy unknown) (-08/03/20) (unknown) (no (unknown) (unknown) Intake Note: (units (u nknown) date) unknown) (unknown) (no (unknown) (unknown) Intake performed (units (unknown) date) by: Estuardo Alejo unknown) (unknown) (no (unknown) (unknown) Intake (units (unkno wn) date) unknown) (unknown) (no (unknown) (unknown) Intake- Clincial (units (unknown) date) Staff unknown) (unknown) (no (unknown) (unknown) Irregular (units (unkn own) date) menstrual cycle unknown) (unknown) (no (unknown) (unknown) Irritable bowel (units (unknown) date) syndrome unknown) (unknown) (no (unknown) (unknown) 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 (unknown) (no (unknown) (unknown) L ear feels full (units (unknown) date) >R. no pain. no unknown) recent illness or fevers. appetitie low. (unknown) (no (unknown) (unknown) Liver nodule (units (u nknown) date) unknown) (unknown) (no (unknown) (unknown) Loc: [facility] (units (unkno wn) date) unknown) (unknown) (no (unknown) (unknown) Low back pain (units ( unknown) date) unknown) (unknown) (no (unknown) (unknown) Medical History (units (unknown) date) (Updated 04/30/22 @ unknown) 18:56 by Shalonda Foote) (unknown) (no (unknown) (unknown) Medications (units (un known) date) unknown) (unknown) (no (unknown) (unknown) Medications: (units (u nknown) date) unknown) (unknown) (no (unknown) (unknown) Mother Breast (units ( unknown) date) cancer unknown) (unknown) (no (unknown) (unknown) NORMAL exam today. (units (unknown) date) normal circulation unknown) feet/hands. (unknown) (no (unknown) (unknown) New (units (unkno wn) date) unknown) (unknown) (no (unknown) (unknown) Orders: (units (unkno wn) date) unknown) (unknown) (no (unknown) (unknown) Oxygen Delivery (units (unknown) date) Method room air unknown) (unknown) (no (unknown) (unknown) PFSH (units (unkno wn) date) unknown) (unknown) (no (unknown) (unknown) Past medical (units (u nknown) date) history notable for unknown) CHEK2 gene mutation, follicular nodule (unknown) (no (unknown) (unknown) Patient already (units (unknown) date) has a plan in place unknown) to evaluate/address gynecological issues. (unknown) (no (unknown) (unknown) Patient complains (units (unknown) date) that her menses unknown) have become irregular for the past 3 months or (unknown) (no (unknown) (unknown) Patient has been (units (unknown) date) seen by [facility] gastro who she reports (unknown) (no (unknown) (unknown) Patient reports (units (unknown) date) that 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? She may do (unknown) (no (unknown) (unknown) Patient: (units (unkno wn) date) Linda Moreno unknown) MR#: [id number] (unknown) (no (unknown) (unknown) Penicillins (units (un known) date) Adverse Reaction unknown) (Mild, Verified 06/09/22 14:56) (unknown) (no (unknown) (unknown) Plan (units (unkno wn) date) unknown) (unknown) (no (unknown) (unknown) Position Supine (units (unknown) date) unknown) (unknown) (no (unknown) (unknown) Pulse 73 (units (unkno wn) date) unknown) (unknown) (no (unknown) (unknown) Pulse Oximetry (%) (units (unknown) date) 98 unknown) (unknown) (no (unknown) (unknown) Pulse Source (units (u nknown) date) Monitor unknown) (unknown) (no (unknown) (unknown) Reason For Visit (units (unknown) date) unknown) (unknown) (no (unknown) (unknown) Referral Ears, (units (unknown) date) Nose, Throat R42 - unknown) Dizziness and giddiness (unknown) (no (unknown) (unknown) Referral Neurology (units (unknown) date) G43.909 - Migraine, unknown) unspecified, not intractable, without (unknown) (no (unknown) (unknown) Referrals (units (unkn own) date) unknown) (unknown) (no (unknown) (unknown) Sciatic leg pain (units (unknown) date) unknown) (unknown) (no (unknown) (unknown) She has an (units (unk nown) date) appointment with unknown) Aparna Randle CNM and women's health provider and (unknown) (no (unknown) (unknown) Signed By: (units (unk nown) date) unknown) (unknown) (no (unknown) (unknown) Smoking Status: (units (unknown) date) Never smoker unknown) (unknown) (no (unknown) (unknown) States [place]. (units (u nknown) date) unknown) (unknown) (no (unknown) (unknown) Surgical History (units (unknown) date) (Updated 04/30/22 @ unknown) 18:56 by Shalonda Foote) (unknown) (no (unknown) (unknown) This note may have (units (unknown) date) been all or unknown) partially generated using voice recognition (unknown) (no (unknown) (unknown) Tobacco + (units (unkn own) date) Substance Use unknown) (unknown) (no (unknown) (unknown) Tobacco Status (units (unknown) date) unknown) (unknown) (no (unknown) (unknown) Visit Reasons: ER (units (unknown) date) in [facility] unknown) (unknown) (no (unknown) (unknown) Vitals (units (unkno wn) date) unknown) (unknown) (no (unknown) (unknown) [place] with (units (unknown) date) her . They unknown) moved to the area from [place] last (unknown) (no (unknown) (unknown) Weight 76.204 kg (units (unknown) date) unknown) (unknown) (no (unknown) (unknown) after IUD removal (units (unknown) date) up until 3 months unknown) ago. No bleeding between menses. Patient (unknown) (no (unknown) (unknown) after the visit (units (unknown) date) reviewed article in unknown) UpToDate which recommended annual mammogram (unknown) (no (unknown) (unknown) age for screening. (units (unknown) date) unknown) (unknown) (no (unknown) (unknown) around age 58. (units (unknown) date) Patient herself has unknown) no personal history of cancers. Patient has (unknown) (no (unknown) (unknown) back home TH doc (units (unknown) date) valium 2.5mg last unknown) night. last night closest to pretty good but (unknown) (no (unknown) (unknown) becoming numb (units ( unknown) date) intermittently R unknown) then L diffusely numb. tingling in fingers and (unknown) (no (unknown) (unknown) cake (units (unkno wn) date) baking/decorating x unknown) 2 weeks. (unknown) (no (unknown) (unknown) constant (units (unkno wn) date) associated pain. unknown) Her menses had been very regular starting shortly (unknown) (no (unknown) (unknown) currently trying (units (unknown) date) to become licensed unknown) in [place]. is in the [place] (unknown) (no (unknown) (unknown) during the menses. (units (unknown) date) Sometimes menses unknown) are heavy, sometimes not. Reports that she (unknown) (no (unknown) (unknown) escitalopram (units (u nknown) date) oxalate 5 mg tablet unknown) 5 mg PO DAILY #30 tabs 06/09/22 [Rx Confirmed (unknown) (no (unknown) (unknown) escitalopram (units (u nknown) date) oxalate unknown) (unknown) (no (unknown) (unknown) exam/Pap with me. (units (unknown) date) unknown) (unknown) (no (unknown) (unknown) feels like she is (units (unknown) date) rocking, not that unknown) the room is spinning. (unknown) (no (unknown) (unknown) genetic (units (unkno wn) date) specialist/counselo unknown) r for a comprehensive consultation if she feels this (unknown) (no (unknown) (unknown) hands knuckles (units (unknown) date) wrists knees unknown) ankles. no autoimmune d/o in family. (unknown) (no (unknown) (unknown) has a plan in (units ( unknown) date) place to get her unknown) pelvic ultrasound.? Follow-up as needed for new (unknown) (no (unknown) (unknown) has had 49 day, 37 (units (unknown) date) day, and 31 day unknown) cycles respectively during this period of (unknown) (no (unknown) (unknown) has not had this (units (unknown) date) before. unknown) (unknown) (no (unknown) (unknown) have occurred. If (units (unknown) date) there are any unknown) questions, please contact the Medical Records (unknown) (no (unknown) (unknown) headache. Also (units (unknown) date) left sided numbness unknown) to face. Ears feel full but denies loss of (unknown) (no (unknown) (unknown) hearing. PCP back (units (unknown) date) [place] gave her a rx unknown) for Valium 5 mg. Took 1/2 tablet last night (unknown) (no (unknown) (unknown) hyperplasia on (units (unknown) date) liver, micro bowel unknown) perforation status post abdominal laparoscopy (unknown) (no (unknown) (unknown) in ED sumatriptan (units (unknown) date) helped some. tried unknown) it after that but did not help. (unknown) (no (unknown) (unknown) including getting (units (unknown) date) imaging per their unknown) recommendations.? (unknown) (no (unknown) (unknown) may occur. (units (unk nown) date) Occasional unknown) wrong-word or 'sound-alike' substitutions may have (unknown) (no (unknown) (unknown) meclizine 25 mg PO (units (unknown) date) TID PRN 30 tabs 3RF unknown) dizziness (unknown) (no (unknown) (unknown) meclizine 25 mg (units (unknown) date) tablet 25 mg PO TID unknown) PRN dizziness #30 tabs 06/09/22 [Rx (unknown) (no (unknown) (unknown) meclizine, start (units (unknown) date) lexapro low dose. unknown) was on 20mg in hs. was on a lot of anxiety (unknown) (no (unknown) (unknown) meds in past. f/u (units (unknown) date) 1 motnh, prn for unknown) worsening. (unknown) (no (unknown) (unknown) mg PO DAILY 30 (units (unknown) date) tabs 1RF unknown) (unknown) (no (unknown) (unknown) nauseous, no (units (u nknown) date) vomiting. unknown) (unknown) (no (unknown) (unknown) no head trauma. no (units (unknown) date) recent travel. unknown) working 6 days/weekly. (unknown) (no (unknown) (unknown) not able to fully (units (unknown) date) explore the topic unknown) during the visit due to time constraints but (unknown) (no (unknown) (unknown) not seen a genetic (units (unknown) date) specialist/counselo unknown) r to review recommendations. She (unknown) (no (unknown) (unknown) occurred due to (units (unknown) date) the inherent unknown) limitations of voice recognition software. Please (unknown) (no (unknown) (unknown) or worsening (units (u nknown) date) symptoms prior to unknown) seeing Gynecology.? (unknown) (no (unknown) (unknown) performed there (units (unknown) date) then will take the unknown) report when she sees Ms. Randle. (unknown) (no (unknown) (unknown) positive for CHEK2 (units (unknown) date) gene mutation. Her unknown) mother was diagnosed with breast cancer (unknown) (no (unknown) (unknown) read the note (units ( unknown) date) carefully and unknown) recognize, using context, where these substitutions (unknown) (no (unknown) (unknown) recommendations for (units (unknown) date) individuals who unknown) have some form of CHEK2 gene mutation; I was (unknown) (no (unknown) (unknown) recommendations. (units (unknown) date) She believes it may unknown) be recommended to get breast MRI at her (unknown) (no (unknown) (unknown) relief may repeat (units (unknown) date) 1 tab after at unknown) least 2 hrs; max = 4 tabs/24 hr PO 30 tabs 2RF (unknown) (no (unknown) (unknown) required by her (units (unknown) date) insurance although unknown) she has already scheduled her appointment and (unknown) (no (unknown) (unknown) so. She has gotten (units (unknown) date) sharp pains prior unknown) to and just following the menses but not (unknown) (no (unknown) (unknown) software. 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 sat down. came and went. face (unknown) (no (unknown) (unknown) states that in the (units (unknown) date) past she was on MARYLIN unknown) pill for about 9 years. 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 unknown) (unknown) (no (unknown) (unknown) sumatriptan (units (un known) date) succinate unknown) (unknown) (no (unknown) (unknown) this mornign bad (units (unknown) date) again. unknown) (unknown) (no (unknown) (unknown) this with (units (unkn own) date) gynecology if she unknown) is seeing them still or may schedule well-woman (unknown) (no (unknown) (unknown) time. Patient had (units (unknown) date) Mirena IUD until unknown) January 2021 when this was removed due to (unknown) (no (unknown) (unknown) toes. (units (unkno wn) date) unknown) (unknown) (no (unknown) (unknown) tried milly (units (un known) date) maneuver did unknown) nothing. advised try again. referred ent and neuro. (unknown) (no (unknown) (unknown) understands she (units (unknown) date) will be starting unknown) colonoscopies earlier than general population (unknown) (no (unknown) (unknown) when she is back (units (unknown) date) in [place] in unknown) April she will get pelvic ultrasound (unknown) (no (unknown) (unknown) which helped the (units (unknown) date) dizziness. unknown) (unknown) (no (unknown) (unknown) will be getting (units (unknown) date) liver MRI for unknown) monitoring of liver nodule. (unknown) (no (unknown) (unknown) with normal (units (un known) date) migraines it is unknown) difference. (unknown) (no (unknown) (unknown) with tomography (units (unknown) date) and annual MRI unknown) starting at age 40.? I have asked our nursing (unknown) (no (unknown) (unknown) would be (units (unkno wn) date) beneficial. unknown) Social History date description facility [id number]+0000 Never smoked tobacco (finding) [facility] [id number]+0000 Never smoked tobacco (finding) [facility] Vital Signs date measurement value units [id number]+0000 BMI BMI 24.5 kg/m2 [id number]+0000 BP_diastolic BP_diastolic 62 mmHg [id number]+0000 BP_systolic BP_systolic 114 mmHg [id number]+0000 heart_rate heart_rate 76 /min [id number]+0000 height_metric height_metric 177.8 cm [id number]+0000 height_standard height_standard 70 in [id number]+0000 o2_saturation o2_saturation 99 % [id number]+0000 respiration_rate respiration_rate 16 /min [id number]+0000 temperature_metric temperature_metric 36.22 C [id number]+0000 temperature_standard temperature_standard 9 7.2 F [id number]+0000 weight_metric weight_metric 77.62 kg [id number]+0000 weight_metric weight_metric 77.621 g_ code [id number]+0000 weight_standard weight_standard 171.12 lb [id number]+0000 weight_standard weight_standard 77.621 g_code [id number]+0000 BMI BMI 24.0 kg/m2 13701065909862+0000 BP_diastolic BP_diastolic 60 mmHg 59463988396675+0000 BP_systolic BP_systolic 90 mmHg [id number]+0000 heart_rate heart_rate 73 /min +0000 height_metric height_metric 177.8 cm +0000 height_standard height_standard 70 in +0000 o2_saturation o2_saturation 98 % +0000 weight_metric weight_metric 76.2 kg +0000 weight_standard weight_standard 167.99 lb
[2022-06-11 14:05] LABS: BASOPHILS # (AUTO) 0.1 10^3/uL (0.0-0.1); BASOPHILS % (AUTO) 0.9 %; EOSINOPHILS # (AUTO) 0.2 10^3/uL (0.0-0.7); EOSINOPHILS % (AUTO) 3.6 %; HGB - HEMOGLOBIN 13.6 g/dL (12.0-16.0); LYMPHOCYTES # (AUTO) 2.4 10^3/uL (1.5-3.5); LYMPHOCYTES % (AUTO) 37.3 %; MEAN CORPUSCULAR HEMOGLOBIN 28.6 pg (27.0-31.0); MEAN CORPUSCULAR HGB CONC 32.4 g/dL (32.0-36.0); MEAN CORPUSCULAR VOLUME 88.2 fL (81.0-99.0); MEAN PLATELET VOLUME 9.7 fL (7.9-10.8); MONOCYTES # (AUTO) 0.5 10^3/uL (0.0-1.0); MONOCYTES % (AUTO) 7.2 %; NEUTROPHILS # (AUTO) 3.2 10^3/uL (1.5-6.6); NEUTROPHILS % (AUTO) 50.8 %; PLT - PLATELET COUNT 278 10^3/uL (130-450); RED BLOOD COUNT 4.76 10^6/uL (4.20-5.40); RED CELL DISTRIBUTION WIDTH 11.5 % (12.0-15.0); WHITE BLOOD COUNT 6.4 x10^3/uL (4.8-10.8)
[2022-06-11 14:14] LABS: MUDS CUTOFF CONCENTRATIONS CUTOFF CONC BELOW:
[2022-06-11 14:19] LABS: ALBUMIN 4.3 g/dL (3.2-5.5); ALBUMIN/GLOBULIN RATIO 1.5 (1.0-2.2); BILIRUBIN,TOTAL 0.4 mg/dL (0.2-1.0); CALCIUM 9.3 mg/dL (8.5-10.3); CREATININE 0.8 mg/dL (0.4-1.0); MAGNESIUM 1.9 mg/dL (1.7-2.8); PHOSPHORUS 4.3 mg/dL (2.5-4.6); POTASSIUM 3.9 mmol/L (3.5-5.0); TOTAL PROTEIN 7.1 g/dL (6.7-8.2)
[2022-06-11 14:26] LABS: BILIRUBIN,URINE NEGATIVE (NEGATIVE); GLUCOSE, URINE (UA) NEGATIVE (NEGATIVE); KETONES,URINE (UA) NEGATIVE (NEGATIVE); LEUKOCYTE ESTERASE, URINE NEGATIVE (NEGATIVE); NITRITE,URINE NEGATIVE (NEGATIVE); OCCULT BLOOD,URINE NEGATIVE (NEGATIVE); PROTEIN,URINE NEGATIVE (NEGATIVE); UROBILINOGEN,URINE 0.2 (NORMAL) E.U./dL (NORMAL)
[2022-06-11 14:28] LABS: CLARITY,URINE CLEAR (CLEAR)
[2022-06-11 14:29] LABS: HCG UR QUAL NEGATIVE
[2022-06-11 14:36] LABS: AMPHETAMINE SCREEN,URINE NEGATIVE (NEGATIVE); BARBITURATE SCREEN,UR NEGATIVE (NEGATIVE); BENZODIAZEPINES SCREEN, URINE POSITIVE (NEGATIVE); COCAINE SCREEN URINE NEGATIVE (NEGATIVE); METHADONE SCREEN, URINE NEGATIVE (NEGATIVE); METHAMPHETAMINES SCREEN, URINE NEGATIVE (NEGATIVE); OPIATE SCREEN, URINE NEGATIVE (NEGATIVE); OXYCODONE SCREEN, URINE NEGATIVE (NEGATIVE); PROPOXYPHENE SCREEN, URINE NEGATIVE (NEGATIVE); THC CANNABINOID SCREEN, URINE NEGATIVE (NEGATIVE); TRICYCLIC ANTIDEPRESSANT,URINE NEGATIVE (NEGATIVE)
[2022-06-11 16:12] VITALS: BP 116/77
== END 2022-06-11 15:30 | disposition home or self-care (01) ==
LOC: ED 13:18
DX: R42 Dizziness and giddiness (principal)
CPT/HCPCS: 36415; 80053; 80306; 81003; 81025; 83735; 84100; 84443; 85025; 99283; 99284; A9270; 81001; 87086

== ENCOUNTER 2022-06-12 13:58 | Emergency (ER) | payer OTHER ==
--- OUTSIDE RECORDS SUMMARY | 2022-06-12 14:05 | EXTERNAL MEDICAL SUMMARY RPT | Continuity of Care Document ---
:1995 Demographics Phone Unavailable Preferred Language [place] Marital Status Adventism Affiliation Unknown Race Unknown Ethnic Group Unknown Author Organization [place] Address [address] [phone] Phone Care Team Providers Name Role Phone Chago Phillips Unavailable Unavailable Vin Nelson Unavailable Unavailable Allergies and Intolerances date description facility type (no date) [facility] (unknown) Encounters No information. Functional Status No information. Immunizations No information. Medications date description facility [id number] Sumatriptan [facility] [id number] Sumatriptan Succinate [facility] [id number] Sumatriptan [facility] [id number] Escitalopram [facility] [id number] [facility] Problems No information. Procedures date description facility [id number] MR abdomen wo/w [facility] Results/Labs test date author facility value unit interpret ation Result panel 1 (unknown) (no (unknown) (unknown) (no value) (units (unk nown) date) unknown) (unknown) (no (unknown) (unknown) [id number] (units (unkno wn) date) unknown) (unknown) (no [...] (unknown) JARED Garcia (units ( unknown) date) [address] unknown) (unknown) (no (unknown) (unknown) Attending Dr: (units ( unknown) date) Vin ACUÑAP unknown) (unknown) (no (unknown) (unknown) BMI 24.5 (units (unkno wn) date) unknown) (unknown) (no (unknown) (unknown) Back pain, (units (unk nown) date) lumbosacral unknown) (unknown) (no (unknown) (unknown) Confirmed (units (unkn own) date) 03/29/22] unknown) (unknown) (no (unknown) (unknown) : 1995 (units (unknown) date) Acct:[id number] unknown) (unknown) (no (unknown) (unknown) Dept at [...] known) date) unknown) (unknown) (no (unknown) (unknown) EXTRUDER (units (unkno wn) date) unknown) (unknown) (no (unknown) (unknown) PFSH (units (unkno wn) date) unknown) (unknown) (no (unknown) (unknown) Patient: (units (unkno wn) date) Anita Reynoso unknown) MR#: [id number] (unknown) (no (unknown) (unknown) [...] (unknown) (unknown) Visit Reasons: (units (unknown) date) EXTRUDER: unknown) needs OB referral*Ok Vadim Paige CMTS (unknown) (no (unknown) (unknown) Vitals [...] unknown) effort is made to edit content, marzipan molder errors (unknown) (no (unknown) (unknown) sumatriptan (units (unk nown) date) succinate 25 mg unknown) tablet (Imitrex) 25 mg PO ONCE PRN 03/29/22 [History Result panel 2 (unknown) (no (unknown) (unknown) (no value) (units (unk nown) date) unknown) (unknown) (no (unknown) (unknown) [id number] (units (unkno wn) date) unknown) (unknown) (no [...] (unknown) JARED Garcia (units ( unknown) date) [address] unknown) (unknown) (no (unknown) (unknown) Attending Dr: [...] (unknown) (unknown) : 1995 (units (unknown) date) Acct:[id number] unknown) (unknown) (no (unknown) (unknown) Dept at [...] known) date) unknown) (unknown) (no (unknown) (unknown) EXTRUDER (units (unkno wn) date) unknown) (unknown) (no (unknown) (unknown) Oxygen Delivery (units (unknown) date) Method room air unknown) (unknown) (no (unknown) (unknown) PFSH (units (unkno wn) date) unknown) (unknown) (no (unknown) (unknown) Patient: (units (unkno wn) date) Anita Reynoso unknown) MR#: [id number] (unknown) (no (unknown) (unknown) [...] (unknown) (unknown) Visit Reasons: (units (unknown) date) EXTRUDER: unknown) needs OB referral*Ok Per Royal CMTS [...] unknown) effort is made to edit content, marzipan molder errors (unknown) (no (unknown) (unknown) sumatriptan (units (unk nown) date) succinate 25 mg unknown) tablet (Imitrex) 25 mg PO ONCE PRN 03/29/22 [History Result panel 3 (unknown) (no (unknown) (unknown) (no value) (units (unk nown) date) unknown) (unknown) (no (unknown) (unknown) [id number] (units (unkno wn) date) unknown) (unknown) (no [...] own) date) unknown) (unknown) (no (unknown) (unknown) [place], [place] (units ( unknown) date) [address] unknown) (unknown) (no (unknown) (unknown) Attending Dr: [...] (unknown) (unknown) : 1995 (units (unknown) date) Acct:[id number] unknown) (unknown) (no (unknown) (unknown) Dept at [...] known) date) unknown) (unknown) (no (unknown) (unknown) EXTRUDER (units (unkno wn) date) unknown) (unknown) (no (unknown) (unknown) Oxygen Delivery (units (unknown) date) Method room air unknown) (unknown) (no (unknown) (unknown) PFSH (units (unkno wn) date) unknown) (unknown) (no (unknown) (unknown) Patient: (units (unkno wn) date) Yaakov Reynosopeter Villanueva unknown) MR#: [id number] (unknown) (no (unknown) (unknown) [...] (unknown) (unknown) Visit Reasons: (units (unknown) date) 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 (unknown) (no (unknown) [...] unknown) effort is made to edit content, marzipan molder errors (unknown) (no (unknown) (unknown) sumatriptan (units (unk nown) date) succinate 25 mg unknown) tablet (Imitrex) 25 mg PO ONCE PRN 03/29/22 [History Result panel 4 (unknown) (no (unknown) (unknown) (no value) (units (unk nown) date) unknown) (unknown) (no (unknown) (unknown) [id number] (units (unkno wn) date) unknown) (unknown) (no [...] own) date) unknown) (unknown) (no (unknown) (unknown) [place], [place] (units ( unknown) date) [address] unknown) (unknown) (no (unknown) (unknown) Attending Dr: [...] (unknown) (unknown) : 1995 (units (unknown) date) Acct:[id number] unknown) (unknown) (no (unknown) (unknown) Dept at [...] known) date) unknown) (unknown) (no (unknown) (unknown) EXTRUDER (units (unkno wn) date) unknown) (unknown) (no (unknown) (unknown) Oxygen Delivery (units (unknown) date) Method room air unknown) (unknown) (no (unknown) (unknown) PFSH (units (unkno wn) date) unknown) (unknown) (no (unknown) (unknown) Patient: (units (unkno wn) date) Anita Reynoso unknown) MR#: [id number] (unknown) (no (unknown) (unknown) [...] (unknown) (unknown) Visit Reasons: (units (unknown) date) 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 grew up in [place]. 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 (unknown) (no (unknown) (unknown) occurred due to (units (unknown) date) the inherent unknown) limitations of voice recognition software. Please (unknown) (no (unknown) (unknown) read the note (units ( unknown) date) carefully and unknown) recognize, using context, where these substitutions (unknown) (no (unknown) (unknown) software. (units (unkn own) date) Although every unknown) effort is made to edit content, marzipan molder errors (unknown) (no (unknown) (unknown) sumatriptan (units [...] nown) date) unknown) (unknown) (no (unknown) (unknown) [id number] (units (unkno wn) date) unknown) (unknown) (no [...] (unknown) JARED Garcia (units ( unknown) date) [address] unknown) (unknown) (no (unknown) (unknown) Attending Dr: [...] (unknown) (unknown) : 1995 (units (unknown) date) Acct:[id number] unknown) (unknown) (no (unknown) (unknown) Dept at [...] known) date) unknown) (unknown) (no (unknown) (unknown) EXTRUDER (units (unkno wn) date) unknown) (unknown) (no (unknown) (unknown) ORDER/CONTACT PT (units (unknown) date) WHEN/IF ORDERING unknown) THIS. 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 grew up in [place]. 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 (unknown) (no (unknown) (unknown) occurred due to (units (unknown) date) the inherent unknown) limitations of voice recognition software. Please (unknown) (no (unknown) (unknown) read the note (units ( unknown) date) carefully and unknown) recognize, using context, where these substitutions (unknown) (no (unknown) (unknown) software. Although (units (unknown) date) every effort is unknown) made to edit content, marzipan molder errors (unknown) (no (unknown) (unknown) sometimes heavy, [...] (unknown) date) unknown) (unknown) (no (unknown) (unknown) [id number] (units (unkno wn) date) unknown) (unknown) (no [...] (unknown) JARED Garcia (units ( unknown) date) [address] unknown) (unknown) (no (unknown) (unknown) Assessment + [...] (unknown) (unknown) : 1995 (units (unknown) date) Acct:[id number] unknown) (unknown) (no (unknown) (unknown) Dept at [...] known) date) unknown) (unknown) (no (unknown) (unknown) EXTRUDER (units (unkno wn) date) unknown) (unknown) (no (unknown) (unknown) ORDER/CONTACT PT (units (unknown) date) WHEN/IF ORDERING unknown) THIS. 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 grew up in [place]. 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 (unknown) (no (unknown) (unknown) occurred due to (units (unknown) date) the inherent unknown) limitations of voice recognition software. Please (unknown) (no (unknown) (unknown) read the note (units ( unknown) date) carefully and unknown) recognize, using context, where these substitutions (unknown) (no (unknown) (unknown) software. Although (units (unknown) date) every effort is unknown) made to edit content, marzipan molder errors (unknown) (no (unknown) (unknown) sometimes heavy, [...] (unknown) date) unknown) (unknown) (no (unknown) (unknown) [id number] (units (unkno wn) date) unknown) (unknown) (no [...] own) date) unknown) (unknown) (no (unknown) (unknown) [place], [place] (units ( unknown) date) [address] unknown) (unknown) (no (unknown) (unknown) Assessment + [...] (unknown) (unknown) : 1995 (units (unknown) date) Acct:[id number] unknown) (unknown) (no (unknown) (unknown) Dept at [...] known) date) unknown) (unknown) (no (unknown) (unknown) EXTRUDER-irregular (units (u nknown) date) periods-BEHAVIORAL HEALTH WORKER unknown) referral (unknown) (no (unknown) (unknown) ORDER/CONTACT PT (units (unknown) date) WHEN/IF ORDERING unknown) THIS. 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 grew up in [place]. 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 (unknown) (no (unknown) (unknown) occurred due to (units (unknown) date) the inherent unknown) limitations of voice recognition software. Please (unknown) (no (unknown) (unknown) read the note (units ( unknown) date) carefully and unknown) recognize, using context, where these substitutions (unknown) (no (unknown) (unknown) software. Although (units (unknown) date) every effort is unknown) made to edit content, marzipan molder errors (unknown) (no (unknown) (unknown) sometimes heavy, [...] (unknown) date) unknown) (unknown) (no (unknown) (unknown) [id number] (units (unkno wn) date) unknown) (unknown) (no [...] own) date) unknown) (unknown) (no (unknown) (unknown) [place], [place] (units ( unknown) date) [address] unknown) (unknown) (no (unknown) (unknown) Assessment + [...] (unknown) (unknown) : 1995 (units (unknown) date) Acct:[id number] unknown) (unknown) (no (unknown) (unknown) Dept at [...] known) date) unknown) (unknown) (no (unknown) (unknown) EXTRUDER-irregular (units (u nknown) date) periods-BEHAVIORAL HEALTH WORKER unknown) referral (unknown) (no (unknown) (unknown) ORDER/CONTACT PT (units (unknown) date) WHEN/IF ORDERING unknown) THIS. 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 grew up in [place]. 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 (unknown) (no (unknown) (unknown) occurred due to (units (unknown) date) the inherent unknown) limitations of voice recognition software. Please (unknown) (no (unknown) (unknown) of would be (units (un known) date) [place] unknown) ([place] If she would like referral to Genetic (unknown) (no (unknown) (unknown) read the note (units ( unknown) date) carefully and unknown) recognize, using context, where these substitutions (unknown) (no (unknown) (unknown) software. Although (units (unknown) date) every effort is unknown) made to edit content, marzipan molder errors (unknown) (no (unknown) (unknown) sometimes heavy, (units (unknown) date) sometimes not. 50 unknown) dday, 37 day, 31 day. pain typically in the (unknown) (no (unknown) (unknown) specialist please (units (unknown) date) go ahead and order unknown) (could consider [place] or [facility], or any (unknown) (no (unknown) (unknown) sumatriptan (units (unk nown) date) succinate 25 mg unknown) tablet (Imitrex) 25 mg PO ONCE PRN 03/29/22 [History (unknown) (no (unknown) (unknown) that she [...] (unknown) date) unknown) (unknown) (no (unknown) (unknown) [id number] (units (unkno wn) date) unknown) (unknown) (no (unknown) (unknown) 03/29/22 (units (unkno wn) date) unknown) (unknown) (no (unknown) (unknown) 04/02/22 1150 (units ( unknown) date) unknown) (unknown) (no (unknown) (unknown) 12:18 (units (unkno wn) date) unknown) (unknown) (no (unknown) (unknown) 26-year-old female (units (unknown) date) presents to unknown) [facility] care. She lives in [place], (unknown) (no (unknown) (unknown) Accompanied by: (units [...] own) date) unknown) (unknown) (no (unknown) (unknown) [place], [place] (units ( unknown) date) [address] unknown) (unknown) (no (unknown) (unknown) Appearance: (units [...] (unknown) (unknown) : 1995 (units (unknown) date) Acct:[id number] unknown) (unknown) (no (unknown) (unknown) [place]. Patient (units (unknown) date) grew up in unknown) [place]. 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 unknown) (unknown) (no (unknown) (unknown) Details: (units (unkno wn) date) unknown) (unknown) (no (unknown) (unknown) Documented By: (units (unknown) date) OmarVin ARNP unknown) 03/29/22 1216 (unknown) (no (unknown) (unknown) [...] date) (Updated 04/02/22 @ unknown) 11:45 by Vin Omar, NET WASHER) (unknown) (no (unknown) (unknown) Medications (units (un known) date) unknown) (unknown) (no (unknown) (unknown) Mental Status: (units (unknown) date) mental status unknown) grossly normal (unknown) (no (unknown) (unknown) Mood: congruent (units (unknown) date) mood unknown) (unknown) (no (unknown) (unknown) EXTRUDER-irregular (units (u nknown) date) periods-BEHAVIORAL HEALTH WORKER unknown) referral (unknown) (no (unknown) (unknown) Neuro [...] (units (unknown) date) seen by [facility]) [facility] who she reports (unknown) (no (unknown) (unknown) Patient reports (units (unknown) date) that 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 She may do (unknown) (no (unknown) (unknown) Patient: (units (unkno wn) date) Anita Reynoso unknown) MR#: [id number] (unknown) (no (unknown) (unknown) [...] normal unknown) (unknown) (no (unknown) (unknown) [place]. 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 They unknown) moved to the area from [place] last (unknown) (no (unknown) (unknown) Weight 77.621 [...] (unknown) date) to become licensed unknown) in [place]. is in the [place] (unknown[place] (no (unknown) [...] effort is unknown) made to edit content, marzipan molder errors (unknown) (no (unknown) (unknown) staff to [...] she is back (units (unknown) date) in [place] in unknown) April she will get pelvic [...] nown) date) unknown) (unknown) (no (unknown) (unknown) [id number] (units (unkn own) date) unknown) (unknown) (no (unknown) (unknown) 05/12/22 (units (unkno wn) date) unknown) (unknown) (no (unknown) (unknown) 11 (units (unkno wn) date) unknown) (unknown) (no (unknown) (unknown) [address] [place] [address] (units (unknown) date) unknown) (unknown) (no (unknown) (unknown) 2D FLASH (units (unkno wn) date) unknown) (unknown) (no (unknown) (unknown) Accession (units (unkn own) date) Number: unknown) [id number] (unknown) (no (unknown) (unknown) Age/Sex: 27 / F (units (unknown) date) Date of Service: unknown) (unknown) (no (unknown) (unknown) [place] (units ( unknown) date) [address] unknown) (unknown) (no (unknown) (unknown) Approved by: [...] date) axial 2D FLASH unknown) in- and icd-dt-djtsm; axial breath-hold T2 FSE. (unknown) (no (unknown) (unknown) : 1995 (units (unknown) date) Acct:[id number] unknown) (unknown) (no (unknown) (unknown) Dictated by: [...] metallic artifact posteriorly (unknown) (no (unknown) (unknown) [facility] (units (unknown) date) unknown) (unknown) (no (unknown) [...] (unknown) (unknown) Patient: (units (unkno wn) date) Anita Reynoso R unknown) MR#: M (unknown) (no (unknown) [...] nown) date) unknown) (unknown) (no (unknown) (unknown) [id number] (units (unkno wn) date) unknown) (unknown) (no (unknown) (unknown) 06/09/22 (units (unkno wn) date) unknown) (unknown) (no (unknown) (unknown) Age/Sex: 27 / F (units (unknown) date) Date of Service: unknown) (unknown) (no (unknown) (unknown) Allergies (units (unkn own) date) unknown) (unknown) (no (unknown) (unknown) JARED Garcia (units ( unknown) date) [address] unknown) (unknown) (no (unknown) (unknown) Anesthesia (units (unk nown) date) unknown) (unknown) (no (unknown) (unknown) Attending Dr: (units ( unknown) date) Vin HUBER unknown) (unknown) (no (unknown) (unknown) Back pain, (units (unk nown) date) lumbosacral unknown) (unknown) (no (unknown) (unknown) : 1995 (units (unknown) date) Acct:[id number] unknown) (unknown) (no (unknown) (unknown) Dept at [...] (unknown) (unknown) Patient: (units (unkno wn) date) Anita Reynoso unknown) MR#: [id number] (unknown) (no (unknown) (unknown) [...] Visit Reasons: (units (unknown) date) ER in [facility] unknown) (unknown) (no (unknown) (unknown) have occurred. [...] unknown) effort is made to edit content, marzipan molder errors Result panel 12 (unknown) (no (unknown) (unknown) (no value) (units (unk nown) date) unknown) (unknown) (no (unknown) (unknown) [id number] (units (unkno wn) date) unknown) (unknown) (no (unknown) (unknown) 05/13/22 [Rx (units (u nknown) date) Confirmed unknown) 06/09/22] (unknown) (no (unknown) (unknown) 06/09/22 (units (unkno wn) date) unknown) (unknown) (no (unknown) (unknown) 14:53 (units (unkno wn) date) unknown) (unknown) (no (unknown) (unknown) 27 yo female (units (un known) date) presents for ED unknown) follow up from [facility]. Is still feeling dizzy with (unknown) (no (unknown) (unknown) Age/Sex: 27 / F (units (unknown) date) Date of Service: unknown) (unknown) (no (unknown) (unknown) Allergies (units (unkn own) date) unknown) (unknown) (no (unknown) (unknown) [place], [place] (units ( unknown) date) [address] unknown) (unknown) (no (unknown) (unknown) Anesthesia (units [...] (unknown) (unknown) : 1995 (units (unknown) date) Acct:[id number] unknown) (unknown) (no (unknown) (unknown) Dept at [...] (unknown) (unknown) Patient: (units (unkno wn) date) Anita Reynoso R unknown) MR#: [id number] (unknown) (no (unknown) [...] Visit Reasons: (units (unknown) date) ER in [facility] unknown) (unknown) (no (unknown) (unknown) Vitals (units [...] unknown) effort is made to edit content, marzipan molder errors (unknown) (no (unknown) (unknown) sumatriptan (units (un known) date) succinate 25 mg unknown) tablet See Rx Instructions PO .COMPLEX #30 tabs (unknown) (no (unknown) (unknown) which helped the (units (unknown) date) dizziness. unknown) Result panel 13 (unknown) (no (unknown) (unknown) (no value) (units (unk nown) date) unknown) (unknown) (no (unknown) (unknown) [id number] (units (unkno wn) date) unknown) (unknown) (no (unknown) (unknown) 05/13/22 [Rx (units (u nknown) date) Confirmed 06/09/22] unknown) (unknown) (no (unknown) (unknown) 06/09/22 (units (unkno wn) date) unknown) (unknown) (no (unknown) (unknown) 14:53 (units (unkno wn) date) unknown) (unknown) (no (unknown) (unknown) 26-year-old female (units (unknown) date) presents to unknown) establish care. She lives in [place], (unknown) (no (unknown) (unknown) 27 yo female (units (un known) date) presents for ED unknown) follow up from [facility]. Is still feeling dizzy with (unknown) (no (unknown) (unknown) Age/Sex: 27 / F (units (unknown) date) Date of Service: unknown) (unknown) (no (unknown) (unknown) Allergies (units (unkn own) date) unknown) (unknown) (no (unknown) (unknown) [place], [place] (units ( unknown) date) [address] unknown) (unknown) (no (unknown) (unknown) Anesthesia (units [...] (unknown) (unknown) : 1995 (units (unknown) date) Acct:[id number] unknown) (unknown) (no (unknown) (unknown) [place]. Patient (units (unknown) date) grew up in unknown) [place]. 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 She may do (unknown) (no (unknown) (unknown) Patient: (units (unkno wn) date) EdgardoAnita Rich unknown) MR#: M0 (unknown) (no (unknown) [...] Never smoker unknown) (unknown) (no (unknown) (unknown) [facility] (units (u nknown) date) unknown) (unknown) (no [...] Visit Reasons: ER (units (unknown) date) in [facility] unknown) (unknown) (no (unknown) (unknown) Vitals (units (unkno wn) date) unknown) (unknown) (no (unknown) (unknown) Young with (units (unknown) date) her . They unknown) moved to the area from [place] last (unknown) (no (unknown) (unknown) Weight 76.204 [...] (unknown) date) to become licensed unknown) in [place]. is in the [place] (unknown) (no (unknown) (unknown) during the menses. [...] effort is unknown) made to edit content, marzipan molder errors (unknown) (no (unknown) (unknown) staff to [...] she is back (units (unknown) date) in [place] in unknown) April she will get pelvic [...] nown) date) unknown) (unknown) (no (unknown) (unknown) [id number] (units (unkno wn) date) unknown) (unknown) (no (unknown) (unknown) 05/13/22 [Rx (units (u nknown) date) Confirmed 06/09/22] unknown) (unknown) (no (unknown) (unknown) 06/09/22 (units (unkno wn) date) unknown) (unknown) (no (unknown) (unknown) 14:53 (units (unkno wn) date) unknown) (unknown) (no (unknown) (unknown) 26-year-old female (units (unknown) date) presents to unknown) establish care. She lives in [place], (unknown) (no (unknown) (unknown) 27 yo female (units (un known) date) presents for ED unknown) follow up from [facility]. Is still feeling dizzy with (unknown) (no (unknown) (unknown) Age/Sex: 27 / F (units (unknown) date) Date of Service: unknown) (unknown) (no (unknown) (unknown) Allergies (units (unkn own) date) unknown) (unknown) (no (unknown) (unknown) [place], [place] (units ( unknown) date) [id number] unknown) (unknown) (no (unknown) (unknown) Anesthesia (units [...] (unknown) (unknown) : 1995 (units (unknown) date) Acct:[id number] unknown) (unknown) (no (unknown) (unknown) July. Patient (units (unknown) date) grew up in unknown) [place]. 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 She may do (unknown) (no (unknown) (unknown) Patient: (units (unkno wn) date) Anita Reynoso unknown) MR#: [id number] (unknown) (no (unknown) (unknown) [...] smoker unknown) (unknown) (no (unknown) (unknown) [place] (units (u nknown) date) unknown) (unknown) (no [...] Visit Reasons: ER (units (unknown) date) in [facility] unknown) (unknown) (no (unknown) (unknown) Vitals (units (unkno wn) date) unknown) (unknown) (no (unknown) (unknown) Young with (units (unknown) date) her . They unknown) moved to the area from [place] last (unknown) (no (unknown) (unknown) Weight 76.204 [...] (unknown) date) to become licensed unknown) in [place]. [place] in [place] (unknown) (no (unknown) [...] effort is unknown) made to edit content, marzipan molder errors (unknown) (no (unknown) (unknown) staff to [...] she is back (units (unknown) date) in [place] in unknown) April she will get pelvic [...] nown) date) unknown) (unknown) (no (unknown) (unknown) [id number] (units (unkno wn) date) unknown) (unknown) (no (unknown) (unknown) 05/13/22 [Rx (units (u nknown) date) Confirmed 06/09/22] unknown) (unknown) (no (unknown) (unknown) 06/09/22 (units (unkno wn) date) unknown) (unknown) (no (unknown) (unknown) 14:53 (units (unkno wn) date) unknown) (unknown) (no (unknown) (unknown) 26-year-old female (units (unknown) date) presents to unknown) establish care. She lives in [place], (unknown) (no (unknown) (unknown) 27 yo female (units (un known) date) presents for ED unknown) follow up from [facility]. Is still feeling dizzy with (unknown) (no (unknown) (unknown) Age/Sex: 27 / F (units (unknown) date) Date of Service: unknown) (unknown) (no (unknown) (unknown) Allergies (units (unkn own) date) unknown) (unknown) (no (unknown) (unknown) [place], [place] (units ( unknown) date) [id number] unknown) (unknown) (no (unknown) (unknown) Anesthesia (units [...] (unknown) (unknown) : 1995 (units (unknown) date) Acct:[id number] unknown) (unknown) (no (unknown) (unknown) [place]. Patient (units (unknown) date) grew up in unknown) [place]. 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 She may do (unknown) (no (unknown) (unknown) Patient: (units (unkno wn) date) Anita Reynoso unknown) MR#: [id number] (unknown) (no (unknown) (unknown) [...] smoker unknown) (unknown) (no (unknown) (unknown) States [place]. (units (u nknown) date) unknown) (unknown) (no [...] Visit Reasons: ER (units (unknown) date) in [facility] unknown) (unknown) (no (unknown) (unknown) Vitals (units (unkno wn) date) unknown) (unknown) (no (unknown) (unknown) [place] with (units (unknown) date) her . They unknown) moved to the area from [place] last (unknown) (no (unknown) (unknown) Weight 76.204 [...] (unknown) date) to become licensed unknown) in [place]. is in the [place] (unknown) (no (unknown) [...] effort is unknown) made to edit content, marzipan molder errors (unknown) (no (unknown) (unknown) staff to [...] she is back (units (unknown) date) in [place] in unknown) April she will get pelvic [...] nown) date) unknown) (unknown) (no (unknown) (unknown) [phone] (units (unkno wn) date) unknown) (unknown) (no (unknown) (unknown) 05/13/22 [Rx (units (u nknown) date) Confirmed 06/09/22] unknown) (unknown) (no (unknown) (unknown) 06/09/22 (units (unkno wn) date) unknown) (unknown) (no (unknown) (unknown) 14:53 (units (unkno wn) date) unknown) (unknown) (no (unknown) (unknown) 26-year-old female (units (unknown) date) presents to unknown) establish care. She lives in [place], (unknown) (no (unknown) (unknown) 27 yo female (units (un known) date) presents for ED unknown) follow up from [facility]. Is still feeling dizzy with (unknown) (no (unknown) (unknown) Age/Sex: 27 / F (units (unknown) date) Date of Service: unknown) (unknown) (no (unknown) (unknown) Allergies (units (unkn own) date) unknown) (unknown) (no (unknown) (unknown) [place], [place] (units ( unknown) date) [id number] unknown) (unknown) (no (unknown) (unknown) Anesthesia (units [...] (unknown) (unknown) : 1995 (units (unknown) date) Acct:[id number] unknown) (unknown) (no (unknown) (unknown) July. Patient (units (unknown) date) grew up in unknown) [place]. 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 She may do (unknown) (no (unknown) (unknown) Patient: (units (unkno wn) date) Anita Reynoso unknown) MR#: [id number] (unknown) (no (unknown) (unknown) [...] smoker unknown) (unknown) (no (unknown) (unknown) [place] (units (u nknown) date) unknown) (unknown) (no [...] Visit Reasons: ER (units (unknown) date) in [facility] unknown) (unknown) (no (unknown) (unknown) Vitals (units (unkno wn) date) unknown) (unknown) (no (unknown) (unknown) Young with (units (unknown) date) her . They unknown) moved to the area from [place] last (unknown) (no (unknown) (unknown) Weight 76.204 [...] (unknown) date) to become licensed unknown) in [place]. is in the [place] (unknown) (no (unknown) [...] effort is unknown) made to edit content, marzipan molder errors (unknown) (no (unknown) (unknown) staff to [...] she is back (units (unknown) date) in [place] in unknown) April she will get pelvic [...] unknown) date) unknown) (unknown) (no (unknown) (unknown) [id number] (units (unkno wn) date) unknown) (unknown) (no (unknown) (unknown) 06/09/22 (units (unkno wn) date) unknown) (unknown) (no (unknown) (unknown) 06/09/22] (units (unkn own) date) unknown) (unknown) (no (unknown) (unknown) 14:53 (units (unkno wn) date) unknown) (unknown) (no (unknown) (unknown) 26-year-old female (units (unknown) date) presents to unknown) [facility] care. She lives in [place], (unknown) (no (unknown) (unknown) 27 yo female (units (un known) date) presents for ED unknown) follow up from [facility]. 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 We spent unknown) time reviewing literature regarding management (unknown) (no (unknown) (unknown) Chief Complaint (units (unknown) date) unknown) (unknown) (no (unknown) (unknown) Chief Complaint: (units (unknown) date) f/u ED visit unknown) (unknown) (no (unknown) (unknown) Confirmed (units (unkn own) date) 06/09/22] unknown) (unknown) (no (unknown) (unknown) : 1995 (units (unknown) date) Acct:[id number] unknown) (unknown) (no (unknown) (unknown) July. Patient (units (unknown) date) grew up in unknown) [place]. She worked as a [employer] W[employer] in [place] and is (unknown) (no (unknown) (unknown) Dept at (units (o wn) date) . unknown) (unknown) (no (unknown) [...] (units (unknown) date) seen by [facility] unknown) [facility] gastro who she reports (unknown) (no (unknown) (unknown) Patient reports (units (unknown) date) that 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? She may do (unknown) (no (unknown) (unknown) Patient: (units (unkno wn) date) Anita Reynoso R unknown) MR#: [id number] (unknown) (no (unknown) [...] smoker unknown) (unknown) (no (unknown) (unknown) States [place]. (units (u nknown) date) unknown) (unknown) (no [...] Visit Reasons: ER (units (unknown) date) in [facility] unknown) (unknown) (no (unknown) (unknown) Vitals (units (unkno wn) date) unknown) (unknown) (no (unknown) (unknown) [place] with (units (unknown) date) her . They unknown) moved to the area from [place] last (unknown) (no (unknown) (unknown) Weight 76.204 [...] (unknown) date) to become licensed unknown) in [place]. is in the [place] (unknown) (no (unknown) (unknown) during the menses. [...] effort is unknown) made to edit content, marzipan molder errors (unknown) (no (unknown) (unknown) staff to [...] she is back (units (unknown) date) in [place] in unknown) April she will get pelvic [...] (unkno wn) date) beneficial. unknown) Result panel 18 (unknown) (no (unknown) (unknown) (no value) (units (unk nown) date) unknown) (unknown) (no (unknown) (unknown) (1) Vertigo: (units (u nknown) date) unknown) (unknown) (no (unknown) (unknown) (2) Tingling: (units ( unknown) date) unknown) (unknown) (no (unknown) (unknown) (3) Migraine: (units ( unknown) date) unknown) (unknown) (no (unknown) (unknown) [phone] (units (unkno wn) date) unknown) (unknown) (no (unknown) (unknown) 06/09/22 (units (unkno wn) date) unknown) (unknown) (no (unknown) (unknown) 06/09/22] (units (unkn own) date) unknown) (unknown) (no (unknown) (unknown) 14:53 (units (unkno wn) date) unknown) (unknown) (no (unknown) (unknown) 26-year-old female (units (unknown) date) presents to unknown) establish care. She lives in [place], (unknown) (no (unknown) (unknown) 27 yo female (units (un known) date) presents for ED unknown) follow up from [facility]. Is still feeling dizzy with (unknown) (no (unknown) (unknown) 27-year-old female (units (unknown) date) presents to unknown) follow-up [facility] (unknown) (no (unknown) (unknown) Age/Sex: 27 / F (units (unknown) date) Date of Service: unknown) (unknown) (no (unknown) (unknown) Allergies (units (unkn own) date) unknown) (unknown) (no (unknown) (unknown) [place], [place] (units ( unknown) date) [id number] unknown) (unknown) (no (unknown) (unknown) Anesthesia (units [...] Chief Complaint: (units (unknown) date) f/u ED unknown) visit/dizziness/num bness/tingling/anxi ety (unknown) (no (unknown) (unknown) Confirmed (units (unkn own) date) 06/09/22] unknown) (unknown) (no (unknown) (unknown) : 1995 (units (unknown) date) Acct:[id number] unknown) (unknown) (no (unknown) (unknown) July. Patient (units (unknown) date) grew up in unknown) [place]. She worked as a [employer] in [place] and is (unknown) (no (unknown) (unknown) Dept [...] date) unknown) (unknown) (no (unknown) (unknown) [facility] ([facility] (unknown) date) unknown) (unknown) (no (unknown) (unknown) Medical [...] (units (unknown) date) seen by [facility]) [place] [facility] who she reports (unknown) (no (unknown) (unknown) Patient reports (units (unknown) date) that 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? She may do (unknown) (no (unknown) (unknown) Patient: (units (unkno wn) date) Yaakov Reynosole Rich unknown) MR#: [id number] (unknown) (no (unknown) [...] smoker unknown) (unknown) (no (unknown) (unknown) [place] (units (u nknown) date) unknown) (unknown) (no [...] Visit Reasons: ER (units (unknown) date) in [facility] unknown) (unknown) (no (unknown) (unknown) Vitals (units (unkno wn) date) unknown) (unknown) (no (unknown) (unknown) [place] with (units (unknown) date) her . They unknown) moved to the area from [place] last (unknown) (no (unknown) (unknown) Weight 76.204 [...] (unknown) date) to become licensed unknown) in [place]. is in the [place] (unknown) (no (unknown) [...] effort is unknown) made to edit content, marzipan molder errors (unknown) (no (unknown) (unknown) staff to [...] she is back (units (unknown) date) in [place] in unknown) April she will get pelvic [...] (unkno wn) date) beneficial. unknown) Result panel 19 (unknown) (no (unknown) (unknown) (no value) (units (unk nown) date) unknown) (unknown) (no (unknown) (unknown) (1) Vertigo: (units (u nknown) date) unknown) (unknown) (no (unknown) (unknown) (2) Tingling: (units ( unknown) date) unknown) (unknown) (no (unknown) (unknown) (3) Migraine: (units ( unknown) date) unknown) (unknown) (no (unknown) (unknown) [phone] (units (unkno wn) date) unknown) (unknown) (no (unknown) (unknown) 06/09/22 (units (unkno wn) date) unknown) (unknown) (no (unknown) (unknown) 06/09/22] (units (unkn own) date) unknown) (unknown) (no (unknown) (unknown) 14:53 (units (unkno wn) date) unknown) (unknown) (no (unknown) (unknown) 26-year-old female (units (unknown) date) presents to unknown) establish care. She lives in [place], (unknown) (no (unknown) (unknown) 27 yo female (units (un known) date) presents for ED unknown) follow up from [facility]. Is still feeling dizzy with (unknown) (no (unknown) (unknown) 27-year-old female (units (unknown) date) presents to unknown) follow-up on recent visit to [facility] (unknown) (no (unknown) (unknown) Age/Sex: 27 / F (units (unknown) date) Date of Service: unknown) (unknown) (no (unknown) (unknown) Allergies (units (unkn own) date) unknown) (unknown) (no (unknown) (unknown) [place], [place] (units ( unknown) date) [id number] unknown) (unknown) (no (unknown) (unknown) Anesthesia (units [...] Chief Complaint: (units (unknown) date) f/u ED unknown) visit/dizziness/num bness/tingling/anxi ety (unknown) (no (unknown) (unknown) Confirmed (units (unkn own) date) 06/09/22] unknown) (unknown) (no (unknown) (unknown) : 1995 (units (unknown) date) Acct:[id number] unknown) (unknown) (no (unknown) (unknown) July. Patient (units (unknown) date) grew up in unknown) [place]. She worked as a [employer] in [place] and is (unknown) (no (unknown) (unknown) Dept [...] date) unknown) (unknown) (no (unknown) (unknown) [facility] ([facility] (unknown) date) unknown) (unknown) (no (unknown) (unknown) Medical [...] (units (unknown) date) seen by [facility] unknown) [facility] gastro who she reports (unknown) (no (unknown) (unknown) Patient reports (units (unknown) date) that 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? She may do (unknown) (no (unknown) (unknown) Patient: (units (unkno wn) date) Anita Reynoso unknown) MR#: [id number] (unknown) (no (unknown) (unknown) [...] smoker unknown) (unknown) (no (unknown) (unknown) [place] (units (u nknown) date) unknown) (unknown) (no [...] Visit Reasons: ER (units (unknown) date) in [facility] unknown) (unknown) (no (unknown) (unknown) Vitals (units (unkno wn) date) unknown) (unknown) (no (unknown) (unknown) [place] with (units (unknown) date) her . They unknown) moved to the area from [place] last (unknown) (no (unknown) (unknown) Weight 76.204 [...] pretty good but (unknown) (no (unknown) (unknown) cake (units (unkno wn) date) baking/decorating x unknown) 2 weeks. (unknown) (no (unknown) (unknown) constant (units (unkno wn) date) associated pain. unknown) Her menses had been very regular starting shortly (unknown) (no (unknown) (unknown) currently trying (units (unknown) date) to become licensed unknown) in [place]. is [place] (unknown) (no (unknown) [...] the unknown) report when she sees Ms. Clementr. (unknown) (no (unknown) (unknown) positive for CHEK2 [...] effort is unknown) made to edit content, marzipan molder errors (unknown) (no (unknown) (unknown) staff to [...] removed due to (unknown) (no (unknown) (unknown) tried milly (units (un known) date) maneuver did unknown) nothing. advised try again. referred ent and neuro. (unknown) (no (unknown) (unknown) understands she (units (unknown) date) will be starting unknown) colonoscopies earlier than general population (unknown) (no (unknown) (unknown) when she is back (units (unknown) date) in [place] in unknown) April she will get pelvic [...] (unkno wn) date) beneficial. unknown) Result panel 20 (unknown) (no (unknown) (unknown) (no value) (units (unk nown) date) unknown) (unknown) (no (unknown) (unknown) (1) Vertigo: (units (u nknown) date) unknown) (unknown) (no (unknown) (unknown) (2) Tingling: (units ( unknown) date) unknown) (unknown) (no (unknown) (unknown) (3) Migraine: (units ( unknown) date) unknown) (unknown) (no (unknown) (unknown) (4) Anxiety: (units (u nknown) date) unknown) (unknown) (no (unknown) (unknown) [id number] (units (unkno wn) date) unknown) (unknown) (no (unknown) (unknown) 06/09/22 (units (unkno wn) date) unknown) (unknown) (no (unknown) (unknown) 06/09/22] (units (unkn own) date) unknown) (unknown) (no (unknown) (unknown) 14:53 (units (unkno wn) date) unknown) (unknown) (no (unknown) (unknown) 2+/2+, (units (unkno wn) date) respectively. Cap unknown) refill less than 2 seconds, sensation intact to light (unknown) (no (unknown) (unknown) 27 yo female (units (un known) date) presents for ED unknown) follow up from [facility]. Is still feeling dizzy with (unknown) (no (unknown) (unknown) 27-year-old (units (un known) date) female presents to unknown) follow-up on recent visit to [facility] (unknown) (no (unknown) (unknown) Affect: normal (units (unknown) date) affect unknown) (unknown) (no (unknown) (unknown) Age/Sex: 27 / F (units (unknown) date) Date of Service: unknown) (unknown) (no (unknown) (unknown) All systems (units (un known) date) reviewed + are unknown) unremarkable except as noted in HPI and below (unknown) (no (unknown) (unknown) Allergies (units (unkn own) date) unknown) (unknown) (no (unknown) (unknown) [place], [place] (units ( unknown) date) [id number] unknown) (unknown) (no (unknown) (unknown) Anesthesia (units (unk nown) date) unknown) (unknown) (no (unknown) (unknown) Anxiety (units (unkno wn) date) unknown) (unknown) (no (unknown) (unknown) Anxiety: Trial (units (unknown) date) Lexapro. Follow-up unknown) in 1 month, sooner as needed for new or (unknown) (no (unknown) (unknown) Appearance: (units (un known) date) grossly normal unknown) (unknown) (no (unknown) (unknown) Assessment + Plan (units (unknown) date) unknown) (unknown) (no (unknown) (unknown) Attending Dr: (units ( unknown) date) Vin HUBER unknown) (unknown) (no (unknown) (unknown) Attitude: (units (unkn own) date) cooperative unknown) (unknown) (no (unknown) (unknown) Auscultation: (units ( unknown) date) clear to unknown) auscultation bilaterally (unknown) (no (unknown) (unknown) BMI 24.0 (units (unkno wn) date) unknown) (unknown) (no (unknown) (unknown) BP 90/60 (units (unkno wn) date) unknown) (unknown) (no (unknown) (unknown) Back pain, (units (unk nown) date) lumbosacral unknown) (unknown) (no (unknown) (unknown) Bilateral hands (units (unknown) date) and feet: unknown) Appropriately warm and pink, radial and DP pulses (unknown) (no (unknown) (unknown) Blood Pressure (units (unknown) date) Location Lt unknown) brachial (unknown) (no (unknown) (unknown) CT was performed (units (unknown) date) with normal unknown) results, lab work unremarkable.? Sumatriptan was (unknown) (no (unknown) (unknown) Cardio (units (unkno wn) date) unknown) (unknown) (no (unknown) (unknown) Chief Complaint (units (unknown) date) unknown) (unknown) (no (unknown) (unknown) Chief Complaint: (units (unknown) date) f/u ED unknown) visit/dizziness/nu mbness/tingling/an xiety (unknown) (no (unknown) (unknown) Cognition: normal (units (unknown) date) cognition unknown) (unknown) (no (unknown) (unknown) Confirmed (units (unkn own) date) 06/09/22] unknown) (unknown) (no (unknown) (unknown) Const (units (unkno wn) date) unknown) (unknown) (no (unknown) (unknown) Coordination: (units ( unknown) date) [id number] test unknown) normal and rapid alternating movement UE normal (unknown) (no (unknown) (unknown) Cranial Nerves: (units (unknown) date) CN's II-XI intact unknown) bilaterally, PERRL and EOM intact bilaterally (unknown) (no (unknown) (unknown) : 1995 (units (unknown) date) Acct:[id number] unknown) (unknown) (no (unknown) (unknown) DTR's: Rt Biceps: (units (unknown) date) 2+, Lt Biceps: 2+, unknown) Rt Patellar: 2+ and Lt Patellar: 2 (unknown) (no (unknown) (unknown) Dept at (units (unkno wn) date) . unknown) (unknown) (no (unknown) (unknown) Details: (units (unkno wn) date) unknown) (unknown) (no (unknown) (unknown) Discontinued (units (u nknown) date) Reason: Dose unknown) Change take 1 tab at onset of headache; if no (unknown) (no (unknown) (unknown) Discontinued (units (u nknown) date) unknown) (unknown) (no (unknown) (unknown) Documented By: (units (unknown) date) Vin Nelson unknown) 06/09/22 1452 (unknown) (no (unknown) (unknown) Draft (units (unkno wn) date) unknown) (unknown) (no (unknown) (unknown) ED at that time. (units (unknown) date) unknown) (unknown) (no (unknown) (unknown) ED on June 06.? (units (unknown) date) She reports that 2 unknown) days prior to the ED visit she was at work (unknown) (no (unknown) (unknown) Ears: hearing (units ( unknown) date) grossly normal unknown) bilaterally, TM's normal bilaterally and EAC's (unknown) (no (unknown) (unknown) Effort + (units (unkno wn) date) Inspection: normal unknown) respiratory effort (unknown) (no (unknown) (unknown) Exam (units (unkno wn) date) unknown) (unknown) (no (unknown) (unknown) Extrem (units (unkno wn) date) unknown) (unknown) (no (unknown) (unknown) Eyes (units (unkno wn) date) unknown) (unknown) (no (unknown) (unknown) Family History (units (unknown) date) (Reviewed 06/11/22 unknown) @ 14:05 by CECILE Higgins) (unknown) (no (unknown) (unknown) Family Practice (units (unknown) date) Office Visit unknown) (unknown) (no (unknown) (unknown) Father (units (unknown) date) Cancer unknown) (unknown) (no (unknown) (unknown) [facility]) (unknown) (no (unknown) (unknown) For first 4 days (units (unknown) date) take one-half tab unknown) daily prior to increasing to 1 tab daily 5 (unknown) (no (unknown) (unknown) Gait: normal gait (units (unknown) date) unknown) (unknown) (no (unknown) (unknown) Gene mutation (units ( unknown) date) () unknown) (unknown) (no (unknown) (unknown) General: (units (unkno wn) date) appearance normal, unknown) both eyes and all related structures (unknown) (no (unknown) (unknown) General: (units (unkno wn) date) cooperative, unknown) healthy appearing and no acute distress (unknown) (no (unknown) (unknown) General: patient (units (unknown) date) alert, patient unknown) awake and patient oriented x3 (unknown) (no (unknown) (unknown) 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) (unknown) (no (unknown) (unknown) Grandfather (units (un known) date) Diabetes unknown) mellitus (unknown) (no (unknown) (unknown) Grandmother (units (un known) date) Breast unknown) cancer (unknown) (no (unknown) (unknown) Grandmother (units (un known) date) Stroke unknown) (unknown) (no (unknown) (unknown) HENMT (units (unkno wn) date) unknown) (unknown) (no (unknown) (unknown) HPI (units (unkno wn) date) unknown) (unknown) (no (unknown) (unknown) Head: normal to (units (unknown) date) inspection and unknown) normocephalic (unknown) (no (unknown) (unknown) Heart Sounds: S1 (units (unknown) date) normal, S2 normal, unknown) normal S1 and S2 and no murmurs (unknown) (no (unknown) (unknown) Height 177.8 cm [...] date) syndrome unknown) (unknown) (no (unknown) (unknown) Judgment: (units (unkn own) date) judgment good unknown) (unknown) (no (unknown) (unknown) Liver nodule (units (u nknown) date) unknown) (unknown) (no (unknown) (unknown) Loc: [facility] (units (unkno wn) date) unknown) (unknown) (no (unknown) (unknown) Low back pain (units ( unknown) date) unknown) (unknown) (no (unknown) ([facility]) [facility]) (unknown) (no (unknown) (unknown) Medical History (units (unknown) date) (Updated 06/11/22 unknown) @ 14:06 by CECILE Higgins) (unknown) (no (unknown) (unknown) Medications (units (un known) date) unknown) (unknown) (no (unknown) (unknown) Medications: (units (u nknown) date) unknown) (unknown) (no (unknown) (unknown) Mental Status: (units (unknown) date) mental status unknown) grossly normal (unknown) (no (unknown) (unknown) Mood: congruent (units (unknown) date) mood unknown) (unknown) (no (unknown) (unknown) Mother Breast (units ( unknown) date) cancer unknown) (unknown) (no (unknown) (unknown) Motor: strength (units (unknown) date) 5/5 throughout and unknown) no pronator drift (unknown) (no (unknown) (unknown) Mouth: oral (units (un known) date) mucosae normal and unknown) oropharynx normal (unknown) (no (unknown) (unknown) Neck (units (unkno wn) date) unknown) (unknown) (no (unknown) (unknown) Neck: normal (units (u nknown) date) visual inspection unknown) and no lymphadenopathy (unknown) (no (unknown) (unknown) Neuro (units (unkno wn) date) unknown) (unknown) (no (unknown) (unknown) New (units (unkno wn) date) unknown) (unknown) (no (unknown) (unknown) Nose: external (units (unknown) date) nose normal, nasal unknown) mucous membranes and turbinates normal and no (unknown) (no (unknown) (unknown) Orders: (units (unkno wn) date) unknown) (unknown) (no (unknown) (unknown) Other: (units (unkno wn) date) unknown) (unknown) (no (unknown) (unknown) Oxygen Delivery (units (unknown) date) Method room air unknown) (unknown) (no (unknown) (unknown) PFSH (units (unkno wn) date) unknown) (unknown) (no (unknown) (unknown) Patient denies (units (unknown) date) head trauma.? No unknown) recent travel.? No recent acute illness or (unknown) (no (unknown) (unknown) Patient does have (units (unknown) date) a history of unknown) anxiety which has been severe at times and (unknown) (no (unknown) (unknown) Patient read (units (u nknown) date) about Milly unknown) maneuver for benign positional vertigo and she tried (unknown) (no (unknown) (unknown) Patient: (units (o wn) date) Anita Reynoso R unknown) MR#: [id number] (unknown) (no (unknown) [...] date) Monitor unknown) (unknown) (no (unknown) (unknown) Pupils: Normal (units (unknown) date) pupillary unknown) reactivity/respons e: bilateral (unknown) (no (unknown) (unknown) ROS (units (unkno wn) date) unknown) (unknown) (no (unknown) (unknown) Rate: regular (units ( unknown) date) rate unknown) (unknown) (no (unknown) (unknown) Reason For Visit (units (unknown) date) unknown) (unknown) (no (unknown) (unknown) Referral Ears, (units (unknown) date) Nose, Throat R42 - unknown) Dizziness and giddiness (unknown) (no (unknown) (unknown) Referral (units (unkno wn) date) Neurology G43.909 unknown) - Migraine, unspecified, not intractable, without (unknown) (no (unknown) (unknown) Referrals (units (unkn own) date) unknown) (unknown) (no (unknown) (unknown) Resp (units (unkno wn) date) unknown) (unknown) (no (unknown) (unknown) Rhythm: regular (units (unknown) date) rhythm unknown) (unknown) (no (unknown) (unknown) Sciatic leg pain (units (unknown) date) unknown) (unknown) (no (unknown) (unknown) Sensory Exam: no (units (unknown) date) sensory deficits unknown) noted (unknown) (no (unknown) (unknown) Signed By: (units (unk nown) date) unknown) (unknown) (no (unknown) (unknown) Smoking Status: (units (unknown) date) Never smoker unknown) (unknown) (no (unknown) (unknown) Speech: speech (units (unknown) date) normal unknown) (unknown) (no (unknown) (unknown) Status: Acute (units ( unknown) date) unknown) (unknown) (no (unknown) (unknown) Surgical History (units (unknown) date) (Reviewed 06/11/22 unknown) @ 14:05 by CECILE Higgins) (unknown) (no (unknown) (unknown) Thereafter she (units (unknown) date) has experienced unknown) waxing and waning of the symptoms but never (unknown) (no (unknown) (unknown) This note may (units ( unknown) date) have been all or unknown) partially generated using voice recognition (unknown) (no (unknown) (unknown) Thought Content: (units (unknown) date) normal unknown) (unknown) (no (unknown) (unknown) Thought Process: (units (unknown) date) normal unknown) (unknown) (no (unknown) (unknown) Throat: posterior (units (unknown) date) oropharynx normal unknown) (unknown) (no (unknown) (unknown) Tobacco + (units (unkn own) date) Substance Use unknown) (unknown) (no (unknown) (unknown) Tobacco Status (units (unknown) date) unknown) (unknown) (no (unknown) (unknown) Vertigo/tingling/ (units (unknown) date) subjective unknown) numbness/migraines : Examination in clinic today (unknown) (no (unknown) (unknown) Visit Reasons: ER (units (unknown) date) in [facility] unknown) (unknown) (no (unknown) (unknown) Vitals (units (unkno wn) date) unknown) (unknown) (no (unknown) (unknown) Weight 76.204 kg (units (unknown) date) unknown) (unknown) (no (unknown) (unknown) about 2 weeks ago (units (unknown) date) which she enjoys. unknown) (unknown) (no (unknown) (unknown) about 3 times per (units (unknown) date) day in the hopes unknown) of gradual improvement despite the fact that (unknown) (no (unknown) (unknown) ahead and refer (units (unknown) date) to neurology and unknown) ENT. I did recommend we approach the vertigo (unknown) (no (unknown) (unknown) although the (units (u nknown) date) anxiety has never unknown) before caused symptoms such as these she does (unknown) (no (unknown) (unknown) and at this time (units (unknown) date) there are no unknown) specific new diagnostics that I recommend; (unknown) (no (unknown) (unknown) anxiety (units (unkno wn) date) medications in the unknown) past.? 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 (unknown) (no (unknown) (unknown) began to feel (units ( unknown) date) lightheaded.? She unknown) sat down and the sensation came and went (unknown) (no (unknown) (unknown) bilateral fingers (units (unknown) date) and toes.? She unknown) describes the lightheadedness/di zziness as (unknown) (no (unknown) (unknown) causes increased (units (unknown) date) stress.? Patient unknown) does not have any children.? She has been (unknown) (no (unknown) (unknown) complete (units (unkno wn) date) resolution.? She unknown) tried prescription sumatriptan after discharge from (unknown) (no (unknown) (unknown) dose to see if (units (unknown) date) this is more unknown) effective. (unknown) (no (unknown) (unknown) escitalopram (units (u nknown) date) oxalate 5 mg unknown) tablet 5 mg PO DAILY #30 tabs 06/09/22 [Rx Confirmed (unknown) (no (unknown) (unknown) escitalopram (units (u nknown) date) oxalate unknown) (unknown) (no (unknown) (unknown) feeling as bad as (units (unknown) date) she had been unknown) before. (unknown) (no (unknown) (unknown) feeling as though (units (unknown) date) she is moving or unknown) rocking rather than the room itself (unknown) (no (unknown) (unknown) fevers.? Nausea (units (unknown) date) but no vomiting.? unknown) Appetite somewhat decreased.? No visual gerard (unknown) (no (unknown) (unknown) forgetfulness. (units (unknown) date) She endorses some unknown) chronic pain in bilateral hands, knuckles, (unknown) (no (unknown) (unknown) ges, slurred (units (un known) date) speech, facial unknown) asymmetry, localized weakness.? She has noticed some (unknown) (no (unknown) (unknown) given in the ED (units (unknown) date) for possible unknown) atypical migraine after which she did feel (unknown) (no (unknown) (unknown) have occurred. If [...] tablet last night (unknown) (no (unknown) (unknown) hearing.? Had a (units (unknown) date) mild headache, no unknown) nausea or light sensitivity.? At the ED head (unknown) (no (unknown) (unknown) however, as the (units (unknown) date) precise unknown) diagnosis/diagnose s is not yet determined we will go (unknown) (no (unknown) (unknown) intermittently.? (units (unknown) date) She began to unknown) experience subjective numbness of her face, (unknown) (no (unknown) (unknown) may occur. (units (unk nown) date) Occasional unknown) wrong-word or 'sound-alike' substitutions may have (unknown) (no (unknown) (unknown) meclizine 25 mg (units (unknown) date) PO TID PRN 30 tabs unknown) 3RF dizziness (unknown) (no (unknown) (unknown) meclizine 25 mg (units (unknown) date) tablet 25 mg PO unknown) TID PRN dizziness #30 tabs 06/09/22 [Rx (unknown) (no (unknown) (unknown) mg PO DAILY 30 (units (unknown) date) tabs 1RF unknown) (unknown) (no (unknown) (unknown) migraine and she (units (unknown) date) is on a quite low unknown) dose of sumatriptan, we will trial a higher (unknown) (no (unknown) (unknown) nasal discharge (units (unknown) date) noted unknown) (unknown) (no (unknown) (unknown) needed use. Since (units (unknown) date) at least part of unknown) the presentation might be due to atypical (unknown) (no (unknown) (unknown) normal (units (unkno wn) date) unknown) (unknown) (no (unknown) (unknown) occurred due to (units (unknown) date) the inherent unknown) limitations of voice recognition software. Please (unknown) (no (unknown) (unknown) read the note (units ( unknown) date) carefully and unknown) recognize, using context, where these substitutions (unknown) (no (unknown) (unknown) relief may repeat (units (unknown) date) 1 tab after at unknown) least 2 hrs; max = 4 tabs/24 hr PO 30 tabs 2RF (unknown) (no (unknown) (unknown) she had no (units (unk nown) date) improvement with a unknown) single maneuver. We will order meclizine for as (unknown) (no (unknown) (unknown) she took last (units ( unknown) date) night and this unknown) seemed to help temporarily but this morning was (unknown) (no (unknown) (unknown) significantly (units ( unknown) date) improved although unknown) not 100% relieved.? She was discharged from the (unknown) (no (unknown) (unknown) software. (units (unkn own) date) Although every unknown) effort is made to edit content, marzipan molder errors (unknown) (no (unknown) (unknown) sometimes on the (units (unknown) date) right side and unknown) other times on the left side as well as tingling (unknown) (no (unknown) (unknown) spinning.? Also (units (unknown) date) feels some unknown) fullness in her ears but no ear pain or loss of (unknown) (no (unknown) (unknown) status (units (unkno wn) date) migrainosus, R20.2 unknown) - Paresthesia of skin, R42 - Dizziness and giddiness (unknown) (no (unknown) (unknown) sumatriptan for (units (unknown) date) her typical unknown) migraines and it usually does help.? She had a (unknown) (no (unknown) (unknown) sumatriptan (units (un known) date) succinate unknown) (unknown) (no (unknown) (unknown) telehealth (units (unk nown) date) appointment with unknown) her former PCP who prescribed Valium 2.5 mg which (unknown) (no (unknown) (unknown) the ED but it did (units (unknown) date) not seem to help unknown) as it had in the ED. ?she does take (unknown) (no (unknown) (unknown) this once but it (units (unknown) date) did not help. unknown) (unknown) (no (unknown) (unknown) touch, motor (units (u nknown) date) function intact. unknown) (unknown) (no (unknown) (unknown) unremarkable. (units ( unknown) date) Patient is clearly unknown) quite symptomatic, however. Reviewed ED note (unknown) (no (unknown) (unknown) which helped the (units (unknown) date) dizziness. unknown) (unknown) (no (unknown) (unknown) wonder if it is (units (unknown) date) at least a unknown) contributory factor.? 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 (unknown) (no (unknown) (unknown) wrists, knees, (units (unknown) date) ankles although no unknown) swelling per se. No family history of Result panel 21 (unknown) (no (unknown) (unknown) (no value) (units (unk nown) date) unknown) (unknown) (no (unknown) (unknown) (1) Vertigo: (units (u nknown) date) unknown) (unknown) (no (unknown) (unknown) (2) Tingling: (units ( unknown) date) unknown) (unknown) (no (unknown) (unknown) (3) Migraine: (units ( unknown) date) unknown) (unknown) (no (unknown) (unknown) (4) Anxiety: (units (u nknown) date) unknown) (unknown) (no (unknown) (unknown) [id number] (units (unkno wn) date) unknown) (unknown) (no (unknown) (unknown) 1 tab after at (units (unknown) date) least 2 hrs; max = unknown) 4 tabs/24 hr PO 10 tabs 3RF (unknown) (no (unknown) (unknown) 06/09/22 (units (unkno wn) date) unknown) (unknown) (no (unknown) (unknown) 06/09/22] (units (unkn own) date) unknown) (unknown) (no (unknown) (unknown) 06/11/22 1418 (units ( unknown) date) unknown) (unknown) (no (unknown) (unknown) 06/11/22 [Rx (units (u nknown) date) Confirmed unknown) 06/11/22] (unknown) (no (unknown) (unknown) 14:53 (units (unkno wn) date) unknown) (unknown) (no (unknown) (unknown) 2+/2+, (units (unkno wn) date) respectively. Cap unknown) refill less than 2 seconds, sensation intact to light (unknown) (no (unknown) (unknown) 27 yo female (units (un known) date) presents for ED unknown) follow up from [facility]. Is still feeling dizzy with (unknown) (no (unknown) (unknown) 27-year-old (units (un known) date) female presents to unknown) [facility] (no (unknown) (unknown) ALL numbers (units (un known) date) entered in unknown) calculation for 'Time Coding Minutes Spent' are (unknown) (no (unknown) (unknown) Affect: normal (units (unknown) date) affect unknown) (unknown) (no (unknown) (unknown) Age/Sex: 27 / F (units (unknown) date) Date of Service: unknown) (unknown) (no (unknown) (unknown) All systems (units (un known) date) reviewed + are unknown) unremarkable except as noted in HPI and below (unknown) (no (unknown) (unknown) Allergies (units (unkn own) date) unknown) (unknown) (no (unknown) (unknown) [place], [place] (units ( unknown) date) [id number] unknown) (unknown) (no (unknown) (unknown) Anesthesia (units (unk nown) date) unknown) (unknown) (no (unknown) (unknown) Anxiety (units (unkno wn) date) unknown) (unknown) (no (unknown) (unknown) Anxiety: Trial (units (unknown) date) Lexapro. Follow-up unknown) in 1 month, sooner as needed for new or (unknown) (no (unknown) (unknown) Appearance: (units (un known) date) grossly normal unknown) (unknown) (no (unknown) (unknown) Assessment + Plan (units (unknown) date) unknown) (unknown) (no (unknown) (unknown) Attending Dr: (units ( unknown) date) Vin HUBER unknown) (unknown) (no (unknown) (unknown) Attitude: (units (unkn own) date) cooperative unknown) (unknown) (no (unknown) (unknown) Auscultation: (units ( unknown) date) clear to unknown) auscultation bilaterally (unknown) (no (unknown) (unknown) BMI 24.0 (units (unkno wn) date) unknown) (unknown) (no (unknown) (unknown) BP 90/60 (units (unkno wn) date) unknown) (unknown) (no (unknown) (unknown) Back pain, (units (unk nown) date) lumbosacral unknown) (unknown) (no (unknown) (unknown) Bilateral hands (units (unknown) date) and feet: unknown) Appropriately warm and pink, radial and DP pulses (unknown) (no (unknown) (unknown) Blood Pressure (units (unknown) date) Location Lt unknown) brachial (unknown) (no (unknown) (unknown) CT was performed (units (unknown) date) with normal unknown) results, lab work unremarkable.? Sumatriptan was (unknown) (no (unknown) (unknown) Cardio (units (unkno wn) date) unknown) (unknown) (no (unknown) (unknown) Chief Complaint (units (unknown) date) unknown) (unknown) (no (unknown) (unknown) Chief Complaint: (units (unknown) date) f/u ED unknown) visit/dizziness/nu mbness/tingling/an xiety (unknown) (no (unknown) (unknown) Cognition: normal (units (unknown) date) cognition unknown) (unknown) (no (unknown) (unknown) Confirmed (units (unkn own) date) 06/09/22] unknown) (unknown) (no (unknown) (unknown) Const (units (unkno wn) date) unknown) (unknown) (no (unknown) (unknown) Coordination: (units ( unknown) date) [id number] test unknown) normal and rapid alternating movement UE normal (unknown) (no (unknown) (unknown) Counseling and (units (unknown) date) educating the unknown) patient/family/car egiver: 15 (unknown) (no (unknown) (unknown) Cranial Nerves: (units (unknown) date) CN's II-XI intact unknown) bilaterally, PERRL and EOM intact bilaterally (unknown) (no (unknown) (unknown) : 1995 (units (unknown) date) Acct:[id number] unknown) (unknown) (no (unknown) (unknown) DTR's: Rt Biceps: (units (unknown) date) 2+, Lt Biceps: 2+, unknown) Rt Patellar: 2+ and Lt Patellar: 2 (unknown) (no (unknown) (unknown) Dept at (units (o wn) date) . unknown) (unknown) (no (unknown) (unknown) Details: (units (unkno wn) date) unknown) (unknown) (no (unknown) (unknown) Discontinued (units (u nknown) date) Reason: Dose unknown) Change take 1 tab at onset of headache; if no (unknown) (no (unknown) (unknown) Discontinued (units (u nknown) date) unknown) (unknown) (no (unknown) (unknown) Documented By: (units (unknown) date) Vin Nelson unknown) 06/09/22 1452 (unknown) (no (unknown) (unknown) ED at that time. (units (unknown) date) unknown) (unknown) (no (unknown) (unknown) ED notes and (units (un known) date) diagnostic unknown) reports, perform comprehensive history and physical exam (unknown) (no (unknown) (unknown) ED on June 06.? (units (unknown) date) She reports that 2 unknown) days prior to the ED visit she was at work (unknown) (no (unknown) (unknown) Ears: hearing (units ( unknown) date) grossly normal unknown) bilaterally, TM's normal bilaterally and EAC's (unknown) (no (unknown) (unknown) Effort + (units (unkno wn) date) Inspection: normal unknown) respiratory effort (unknown) (no (unknown) (unknown) Exam (units (unkno wn) date) unknown) (unknown) (no (unknown) (unknown) Extrem (units (unkno wn) date) unknown) (unknown) (no (unknown) (unknown) Eyes (units (unkno wn) date) unknown) (unknown) (no (unknown) (unknown) Family History (units (unknown) date) (Reviewed 06/11/22 unknown) @ 14:05 by CECILE Higgins) (unknown) (no (unknown) (unknown) Family Practice (units (unknown) date) Office Visit unknown) (unknown) (no (unknown) (unknown) Father (units (unknown) date) Cancer unknown) (unknown) (no (unknown) (unknown) [facility]) (unknown) (no (unknown) (unknown) For first 4 days (units (unknown) date) take one-half tab unknown) daily prior to increasing to 1 tab daily 5 (unknown) (no (unknown) (unknown) Gait: normal gait (units (unknown) date) unknown) (unknown) (no (unknown) (unknown) Gene mutation (units ( unknown) date) () unknown) (unknown) (no (unknown) (unknown) General: (units (unkno wn) date) appearance normal, unknown) both eyes and all related structures (unknown) (no (unknown) (unknown) General: (units (unkno wn) date) cooperative, unknown) healthy appearing and no acute distress (unknown) (no (unknown) (unknown) General: patient (units (unknown) date) alert, patient unknown) awake and patient oriented x3 (unknown) (no (unknown) (unknown) 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) (unknown) (no (unknown) (unknown) Grandfather (units (un known) date) Diabetes unknown) mellitus (unknown) (no (unknown) (unknown) Grandmother (units (un known) date) Breast unknown) cancer (unknown) (no (unknown) (unknown) Grandmother (units (un known) date) Stroke unknown) (unknown) (no (unknown) (unknown) HENMT (units (unkno wn) date) unknown) (unknown) (no (unknown) (unknown) HPI (units (unkno wn) date) unknown) (unknown) (no (unknown) (unknown) Head: normal to (units (unknown) date) inspection and unknown) normocephalic (unknown) (no (unknown) (unknown) Heart Sounds: S1 (units (unknown) date) normal, S2 normal, unknown) normal S1 and S2 and no murmurs (unknown) (no (unknown) (unknown) Height 177.8 cm [...] date) syndrome unknown) (unknown) (no (unknown) (unknown) Judgment: (units (unkn own) date) judgment good unknown) (unknown) (no (unknown) (unknown) Liver nodule (units (u nknown) date) unknown) (unknown) (no (unknown) (unknown) Loc: [facility] (units (unkno wn) date) unknown) (unknown) (no (unknown) (unknown) Low back pain (units ( unknown) date) unknown) (unknown) (no (unknown) (unknown) [facility]) (unknown) (no (unknown) (unknown) Medical History (units (unknown) date) (Updated 11/11/22 unknown) @ 14:06 by CECILE Higgins) (unknown) (no (unknown) (unknown) Medications (units (un known) date) unknown) (unknown) (no (unknown) (unknown) Medications: (units (u nknown) date) unknown) (unknown) (no (unknown) (unknown) Mental Status: (units (unknown) date) mental status unknown) grossly normal (unknown) (no (unknown) (unknown) Migraine type: (units (unknown) date) unspecified Status unknown) migrainosus presence: without status (unknown) (no (unknown) (unknown) Migraine, (units (unkn own) date) unspecified, not unknown) intractable, without status migrainosus (unknown) (no (unknown) (unknown) Mood: congruent (units (unknown) date) mood unknown) (unknown) (no (unknown) (unknown) Mother Breast (units ( unknown) date) cancer unknown) (unknown) (no (unknown) (unknown) Motor: strength (units (unknown) date) 5/5 throughout and unknown) no pronator drift (unknown) (no (unknown) (unknown) Mouth: oral (units (un known) date) mucosae normal and unknown) oropharynx normal (unknown) (no (unknown) (unknown) Neck (units (unkno wn) date) unknown) (unknown) (no (unknown) (unknown) Neck: normal (units (u nknown) date) visual inspection unknown) and no lymphadenopathy (unknown) (no (unknown) (unknown) Neuro (units (unkno wn) date) unknown) (unknown) (no (unknown) (unknown) New (units (unkno wn) date) unknown) (unknown) (no (unknown) (unknown) Nose: external (units (unknown) date) nose normal, nasal unknown) mucous membranes and turbinates normal and no (unknown) (no (unknown) (unknown) Ordering (units (unkno wn) date) medications, unknown) tests, or procedures: 2 (unknown) (no (unknown) (unknown) Orders: (units (unkno wn) date) unknown) (unknown) (no (unknown) (unknown) Other: (units (unkno wn) date) unknown) (unknown) (no (unknown) (unknown) Oxygen Delivery (units (unknown) date) Method room air unknown) (unknown) (no (unknown) (unknown) PFSH (units (unkno wn) date) unknown) (unknown) (no (unknown) (unknown) Patient denies (units (unknown) date) head trauma.? No unknown) recent travel.? No recent acute illness or (unknown) (no (unknown) (unknown) Patient does have (units (unknown) date) a history of unknown) anxiety which has been severe at times and (unknown) (no (unknown) (unknown) Patient read (units (u nknown) date) about Milly unknown) maneuver for benign positional vertigo and she tried (unknown) (no (unknown) (unknown) Patient: (units (unkno wn) date) Anita Reynoso R unknown) MR#: [id number] (unknown) (no (unknown) (unknown) Penicillins (units (un known) date) Adverse Reaction unknown) (Mild, Verified 06/09/22 14:56) (unknown) (no (unknown) (unknown) Performing a (units (u nknown) date) medically unknown) appropriate exam and/or evaluation: 17 (unknown) (no (unknown) (unknown) Plan (units (unkno wn) date) unknown) (unknown) (no (unknown) (unknown) Position Supine (units (unknown) date) unknown) (unknown) (no (unknown) (unknown) Preparing to see (units (unknown) date) the patient, i.e., unknown) chart review, review of tests: 5 (unknown) (no (unknown) (unknown) Psych (units (unkno wn) date) unknown) (unknown) (no (unknown) (unknown) Pulse 73 (units (unkno wn) date) unknown) (unknown) (no (unknown) (unknown) Pulse Oximetry (units (unknown) date) (%) 98 unknown) (unknown) (no (unknown) (unknown) Pulse Source (units (u nknown) date) Monitor unknown) (unknown) (no (unknown) (unknown) Pupils: Normal (units (unknown) date) pupillary unknown) reactivity/respons e: bilateral (unknown) (no (unknown) (unknown) Qualifiers: (units (un known) date) unknown) (unknown) (no (unknown) (unknown) ROS (units (unkno wn) date) unknown) (unknown) (no (unknown) (unknown) Rate: regular (units ( unknown) date) rate unknown) (unknown) (no (unknown) (unknown) Reason For Visit (units (unknown) date) unknown) (unknown) (no (unknown) (unknown) Referral Ears, (units (unknown) date) Nose, Throat R42 - unknown) Dizziness and giddiness (unknown) (no (unknown) (unknown) Referral (units (unkno wn) date) Neurology G43.909 unknown) - Migraine, unspecified, not intractable, without (unknown) (no (unknown) (unknown) Referrals (units (unkn own) date) unknown) (unknown) (no (unknown) (unknown) Referring and (units ( unknown) date) communicating with unknown) other health professionals: 1 (unknown) (no (unknown) (unknown) Resp (units (unkno wn) date) unknown) (unknown) (no (unknown) (unknown) Rhythm: regular (units (unknown) date) rhythm unknown) (unknown) (no (unknown) (unknown) Sciatic leg pain (units (unknown) date) unknown) (unknown) (no (unknown) (unknown) Sensory Exam: no (units (unknown) date) sensory deficits unknown) noted (unknown) (no (unknown) (unknown) Signed By: (units (unk nown) date) <Electronically unknown) signed by Vin Nelson> (unknown) (no (unknown) (unknown) Signed (units (unkno wn) date) unknown) (unknown) (no (unknown) (unknown) Smoking Status: (units (unknown) date) Never smoker unknown) (unknown) (no (unknown) (unknown) Speech: speech (units (unknown) date) normal unknown) (unknown) (no (unknown) (unknown) Status: Acute (units ( unknown) date) unknown) (unknown) (no (unknown) (unknown) Surgical History (units (unknown) date) (Reviewed 06/11/22 unknown) @ 14:05 by CECILE Higgins) (unknown) (no (unknown) (unknown) Thereafter she (units (unknown) date) has experienced unknown) waxing and waning of the symptoms but never (unknown) (no (unknown) (unknown) This note may (units ( unknown) date) have been all or unknown) partially generated using voice recognition (unknown) (no (unknown) (unknown) Thought Content: (units (unknown) date) normal unknown) (unknown) (no (unknown) (unknown) Thought Process: (units (unknown) date) normal unknown) (unknown) (no (unknown) (unknown) Throat: posterior (units (unknown) date) oropharynx normal unknown) (unknown) (no (unknown) (unknown) Time Coding (units (un known) date) Minutes Spent: unknown) (must be on same date of service/appointmen t) (unknown) (no (unknown) (unknown) Time Spent (units (unk nown) date) unknown) (unknown) (no (unknown) (unknown) Time spent was (units (unknown) date) medically unknown) necessary due to the fact that we needed to review her (unknown) (no (unknown) (unknown) Tobacco + (units (unkn own) date) Substance Use unknown) (unknown) (no (unknown) (unknown) Tobacco Status (units (unknown) date) unknown) (unknown) (no (unknown) (unknown) Total Time: 40 (units (unknown) date) unknown) (unknown) (no (unknown) (unknown) Vertigo/tingling/ (units (unknown) date) subjective unknown) numbness/migraines : Examination in clinic today (unknown) (no (unknown) (unknown) Visit Reasons: ER (units (unknown) date) in [facility] unknown) (unknown) (no (unknown) (unknown) Vitals (units (unkno wn) date) unknown) (unknown) (no (unknown) (unknown) Weight 76.204 kg (units (unknown) date) unknown) (unknown) (no (unknown) (unknown) about 2 weeks ago (units (unknown) date) which she enjoys. unknown) (unknown) (no (unknown) (unknown) about 3 times per (units (unknown) date) day in the hopes unknown) of gradual improvement despite the fact that (unknown) (no (unknown) (unknown) ahead and refer (units (unknown) date) to neurology and unknown) ENT. I did recommend we approach the vertigo (unknown) (no (unknown) (unknown) although the (units (u nknown) date) anxiety has never unknown) before caused symptoms such as these she does (unknown) (no (unknown) (unknown) and at this time (units (unknown) date) there are no unknown) specific new diagnostics that I recommend; (unknown) (no (unknown) (unknown) anxiety (units (unkno wn) date) medications in the unknown) past.? recently deployed which certainly (unknown) (no (unknown) (unknown) as benign (units (unkno wn) date) positional vertigo unknown) and recommended she perform modified Milly maneuver (unknown) (no (unknown) (unknown) associated with (units (unknown) date) tasks PERFORMED ON unknown) DATE OF SERVICE. 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 She unknown) sat down and the sensation came and went (unknown) (no (unknown) (unknown) bilateral fingers (units (unknown) date) and toes.? She unknown) describes the lightheadedness/di zziness as (unknown) (no (unknown) (unknown) causes increased (units (unknown) date) stress.? Patient unknown) does not have any children.? She has been (unknown) (no (unknown) (unknown) changes, slurred (units (unknown) date) speech, facial unknown) asymmetry, localized weakness.? She has noticed (unknown) (no (unknown) (unknown) complete (units (unkno wn) date) resolution.? She unknown) tried prescription sumatriptan after discharge from (unknown) (no (unknown) (unknown) dose to see if (units (unknown) date) this is more unknown) effective. (unknown) (no (unknown) (unknown) escitalopram (units (u nknown) date) oxalate 5 mg unknown) tablet 5 mg PO DAILY #30 tabs 06/09/22 [Rx Confirmed (unknown) (no (unknown) (unknown) escitalopram (units (u nknown) date) oxalate unknown) (unknown) (no (unknown) (unknown) feeling as bad as (units (unknown) date) she had been unknown) before. (unknown) (no (unknown) (unknown) feeling as though (units (unknown) date) she is moving or unknown) rocking rather than the room itself (unknown) (no (unknown) (unknown) fevers.? Nausea (units (unknown) date) but no vomiting.? unknown) Appetite somewhat decreased.? No visual (unknown) (no (unknown) (unknown) given in the ED (units (unknown) date) for possible unknown) atypical migraine after which she did feel (unknown) (no (unknown) (unknown) have occurred. If [...] tablet last night (unknown) (no (unknown) (unknown) hearing.? Had a (units (unknown) date) mild headache, no unknown) nausea or light sensitivity.? At the ED head (unknown) (no (unknown) (unknown) however, as the (units (unknown) date) precise unknown) diagnosis/diagnose s is not yet determined we will go (unknown) (no (unknown) (unknown) intermittently.? (units (unknown) date) She began to unknown) experience subjective numbness of her face, (unknown) (no (unknown) (unknown) knuckles, wrists, (units (unknown) date) knees, ankles unknown) although no swelling per se. No family history (unknown) (no (unknown) (unknown) may occur. (units (unk nown) date) Occasional unknown) wrong-word or 'sound-alike' substitutions may have (unknown) (no (unknown) (unknown) meclizine 25 mg (units (unknown) date) PO TID PRN 30 tabs unknown) 3RF dizziness (unknown) (no (unknown) (unknown) meclizine 25 mg (units (unknown) date) tablet 25 mg PO unknown) TID PRN dizziness #30 tabs 06/09/22 [Rx (unknown) (no (unknown) (unknown) medications. (units (u nknown) date) unknown) (unknown) (no (unknown) (unknown) mg PO DAILY 30 (units (unknown) date) tabs 1RF unknown) (unknown) (no (unknown) (unknown) migraine and she (units (unknown) date) is on a quite low unknown) dose of sumatriptan, we will trial a higher (unknown) (no (unknown) (unknown) migrainosus (units (un known) date) Intractability: unknown) not intractable Qualified Code(s): G43.909 (unknown) (no (unknown) (unknown) nasal discharge (units (unknown) date) noted unknown) (unknown) (no (unknown) (unknown) needed use. Since (units (unknown) date) at least part of unknown) the presentation might be due to atypical (unknown) (no (unknown) (unknown) normal (units (unkno wn) date) unknown) (unknown) (no (unknown) (unknown) occurred due to (units (unknown) date) the inherent unknown) limitations of voice recognition software. Please (unknown) (no (unknown) (unknown) of autoimmune (units ( unknown) date) rheumatological unknown) disorders. (unknown) (no (unknown) (unknown) read the note (units ( unknown) date) carefully and unknown) recognize, using context, where these substitutions (unknown) (no (unknown) (unknown) relief may repeat (units (unknown) date) 1 tab after at unknown) least 2 hrs; max = 4 tabs/24 hr PO 30 tabs 2RF (unknown) (no (unknown) (unknown) she had no (units (unk nown) date) improvement with a unknown) single maneuver. We will order meclizine for as (unknown) (no (unknown) (unknown) she took last (units ( unknown) date) night and this unknown) seemed to help temporarily but this morning was (unknown) (no (unknown) (unknown) significantly (units ( unknown) date) improved although unknown) not 100% relieved.? She was discharged from the (unknown) (no (unknown) (unknown) software. (units (unkn own) date) Although every unknown) effort is made to edit content, marzipan molder errors (unknown) (no (unknown) (unknown) some (units (unkno wn) date) forgetfulness. She unknown) endorses some chronic pain in bilateral hands, (unknown) (no (unknown) (unknown) sometimes on the (units (unknown) date) right side and unknown) other times on the left side as well as tingling (unknown) (no (unknown) (unknown) spinning.? Also (units (unknown) date) feels some unknown) fullness in her ears but no ear pain or loss of (unknown) (no (unknown) (unknown) status (units (unkno wn) date) migrainosus, R20.2 unknown) - Paresthesia of skin, R42 - Dizziness and giddiness (unknown) (no (unknown) (unknown) sumatriptan for (units (unknown) date) her typical unknown) migraines and it usually does help.? She had a (unknown) (no (unknown) (unknown) sumatriptan (units (un known) date) succinate 50 mg unknown) tablet See Rx Instructions PO .COMPLEX #10 tabs (unknown) (no (unknown) (unknown) sumatriptan (units (un known) date) succinate take 1 unknown) tab at onset of headache; if no relief may repeat (unknown) (no (unknown) (unknown) sumatriptan (units (un known) date) succinate unknown) (unknown) (no (unknown) (unknown) telehealth (units (unk nown) date) appointment with unknown) her former PCP who prescribed Valium 2.5 mg which (unknown) (no (unknown) (unknown) the ED but it did (units (unknown) date) not seem to help unknown) as it had in the ED. ?she does take (unknown) (no (unknown) (unknown) this once but it (units (unknown) date) did not help. unknown) (unknown) (no (unknown) (unknown) to address (units (unk nown) date) complex cluster of unknown) symptoms and arrive at plan of care including new (unknown) (no (unknown) (unknown) touch, motor (units (u nknown) date) function intact. unknown) (unknown) (no (unknown) (unknown) unremarkable. (units ( unknown) date) Patient is clearly unknown) quite symptomatic, however. Reviewed ED note (unknown) (no (unknown) (unknown) which helped the (units (unknown) date) dizziness. unknown) (unknown) (no (unknown) (unknown) wonder if it is (units (unknown) date) at least a unknown) contributory factor.? 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 Social History date description facility [id number] Never smoked tobacco (finding) [facility] +0000 Never smoked tobacco (finding) [facility] Vital Signs date measurement value units +0000 BMI BMI 24.5 kg/m2 [id number]+0000 BP_diastolic BP_diastolic 62 mmHg [id number]+0000 BP_systolic BP_systolic 114 mmHg 27664360730402+0000 heart_rate heart_rate 76 /min 59054725056948+0000 height_metric height_metric 177.8 cm [id number]+0000 height_standard height_standard 70 in [id number]+0000 o2_saturation o2_saturation 99 % [id number]+0000 respiration_rate respiration_rate 16 /min [id number]+0000 temperature_metric temperature_metric 36.22 C [id number]+0000 temperature_standard temperature_standard 9 7.2 F [id number]+0000 weight_metric weight_metric 77.62 kg [id number]+0000 weight_metric weight_metric 77.621 g_ code 40058825525591+0000 weight_standard weight_standard 171.12 lb 10738525446483+0000 weight_standard weight_standard 77.621 g_code 98656017987473+0000 BMI BMI 24.0 kg/m2 35757844149949+0000 BP_diastolic BP_diastolic 60 mmHg 05350023727029+0000 BP_systolic BP_systolic 90 mmHg 84295142907608+0000 heart_rate heart_rate 73 /min 02840768608495+0000 height_metric height_metric 177.8 cm [id number]+0000 height_standard height_standard 70 in [id number]+0000 o2_saturation o2_saturation 98 % +0000 weight_metric weight_metric 76.2 kg +0000 weight_standard weight_standard 167.99 lb
[2022-06-12] MEDS ORDERED: GADOBUTROL 7.5 MMOL/7.5 ML VIAL ONE (14:50)
--- NOTE | 2022-06-12 14:50 | ED Physician Documentation ---
History of Present Illness - Stated complaint Stated Complaint: DIZZY - Chief complaint Chief Complaint: General - History obtained from History obtained from: Patient - History of Present Illness Timing: Today Pain level max: 0 Pain level now: 0 - Additonal information Additional information: Patient is a 27-year-old female who presents to the emergency department complaining of disequilibrium for the past week or so. She has been seen here x2. Her head CT and lab work has been unremarkable. Symptoms do not appear to be consistent with vertigo. We were going to obtain a brain MRI yesterday, but the MRI was unavailable secondary to paving in front of the machine. Therefore she returns today for the MRI. She states she is feeling better than she felt yesterday. She has been taking antihistamines and pseudoephedrine at home. Review of Systems Ten Systems: 10 systems reviewed and negative Constitutional: denies: Fever, Chills Throat: denies: Sore throat Cardiac: denies: Chest pain / pressure, Palpitations Respiratory: denies: Cough GI: denies: Vomiting, Diarrhea Skin: denies: Rash Musculoskeletal: denies: Neck pain, Back pain Neurologic: denies: Headache PD PAST MEDICAL HISTORY - Past Medical History Past Medical History: No - Past Surgical History Past Surgical History: No - Present Medications Home Medications: Ambulatory Orders Medication Instructions Recorded Confirmed Cetirizine HCl/Pseudoephedrine 1 each PO BID PRN #30 tab 06/11/22 [Zyrtec-D Tablet] predniSONE [Deltasone] 40 mg PO DAILY #10 tablet 06/11/22 - Allergies Allergies/Adverse Reactions: Allergies Allergy/AdvReac Type Severity Reaction Status Date / Time Penicillins Allergy Rash Verified 06/06/22 09:39 - Social History Does the pt smoke?: No Does the pt have substance abuse?: No PD ED PE NORMAL - Vitals Vital signs reviewed: Yes - General General: Alert and oriented X 3, No acute distress, Well developed/nourished - HEENT HEENT: PERRL, EOMI, Moist mucous membranes, Pharynx benign, Other (No nystagmus.) - Neck Neck: Supple, no meningeal sign - Cardiac Cardiac: RRR, Strong equal pulses - Respiratory Respiratory: No respiratory distress, Clear bilaterally - Abdomen Abdomen: Soft, Non tender, Non distended - Derm Derm: Warm and dry - Extremities Extremities: No edema - Neuro Neuro: Alert and oriented X 3, arc trimmer 2-12 intact, No motor deficit, No sensory deficit, Normal speech Eye Opening: Spontaneous Motor: Obeys Commands Verbal: Oriented GCS Score: 15 - Psych Psych: Normal mood, Normal affect Results - Vitals Vitals: Vital Signs - 24 hr 06/12/22 06/12/22 14:22 16:44 Temperature 37.0 C 36.6 C Heart Rate 66 70 Respiratory 19 14 Rate Blood Pressure 107/69 117/83 H O2 Saturation 99 100 Oxygen O2 Source Room air - Rads (name of study) Brain MRI with and without Radiology: Final report received, EMP read contemporaneously, See rad report PD MEDICAL DECISION MAKING - ED course Complexity details: reviewed results, re-evaluated patient, considered differential, d/w patient ED course: 27-year-old female with disequilibrium. Brain MRI with and without are without acute findings. Unclear etiology of her symptoms. We will continue the antihistamine and decongestants at home. She has a referral for ENT in place. No evidence of tumor, stroke. Ambulating well. She appears more steady today than yesterday when I saw her. Patient counseled regarding signs and symptoms for which I believe and urgent re-evaluation would be necessary. Patient with good understanding of and agreement to plan and is comfortable going home at this time This document was made in part using voice recognition software. While efforts are made to proofread this document, sound alike and grammatical errors may occur. Departure - Departure Disposition: 01 Home, Self Care Clinical Impression: Dysequilibrium Condition: Good Instructions: ED Dizziness [facility] Follow-Up: your,doctor in 1 week [Other] Comments: Your MRI does not show any acute abnormalities. The cause of your symptoms is unclear. Please follow-up with the ENT for further care. Return if you worsen. Continue your current medications at home. Discharge Date/Time: 06/12/22 16:45
[2022-06-12] MEDS ORDERED: GADOBUTROL 7.5 MMOL/7.5 ML VIAL IVP ONE (15:46)
--- NOTE | 2022-06-12 16:07 | MRI Report ---
PROCEDURE: BRAIN W/WO INDICATIONS: dysequilibrium CONTRAST: 7.5 TECHNIQUE: Noncontrast axial T1 spin echo, axial T2 fast spin echo, sagittal and axial FLAIR, coronal T2 fast sp in echo, axial gradient echo, axial diffusion and ADC through the brain. After the administration of contrast, axial and coronal T1 spin echo with fat saturation through the brain. COMPARISON: Correlation is made with head CT, 06/06/2022 FINDINGS: Image quality: Excellent. CSF spaces: Basal cisterns are patent. No extra-axial fluid collections. Ventricles are normal in size and shape. Brain: No midline shift. No intracranial bleeds or masses. No abnormal intracranial enhancement. The brainstem appears normal. Diffusion-weighted images demonstrate no acute ischemic insults. No chronic ischemic insults. Normal intravascular flow voids are present. In this patient with this given history, scrutiny is given to the cerebellopontine angle cisterns and to the internal auditory canals. To the limits of this standard protocol study, no masses or abnorma l enhancement can be seen within these regions. Skull and face: Calvarial marrow is normal in signal. Orbits appear normal. Sinuses: Sinuses and mastoids appear clear. IMPRESSION: No imaging explanation is found for the patient's presenting symptoms. No masses or abnormal enhancement can be seen. No findings of acute or subacute infarction are seen. Reviewed by: Roderick Berrios MD on 06/12/2022 3:06 PM [facility] Approved by: Roderick Berrios MD on 06/12/2022 3:06 PM [facility] Station ID: [id number]
[2022-06-12 16:45] VITALS: BP 117/83
== END 2022-06-12 16:45 | disposition home or self-care (01) ==
LOC: ED 13:58
DX: R42 Dizziness and giddiness (principal)
CPT/HCPCS: 70553; 99281; 99284; A9585

== ENCOUNTER 2022-08-04 09:43 | Emergency (ER) | payer OTHER ==
[2022-08-04 10:02] VITALS: BP 129/67
--- OUTSIDE RECORDS SUMMARY | 2022-08-04 10:08 | EXTERNAL MEDICAL SUMMARY RPT | Continuity of Care Document ---
:1995 Author Organization [facility] Address [address] [place] [address] Phone Care Team Providers Name Role Phone Chago Phillips Unavailable Unavailable Allergies and Intolerances date description facility type (no date) [facility] (unknown) Encounters No information. Functional Status No information. Immunizations No information. Medications date description facility 2022-06-11 00:00 Sumatriptan Succinate [facility] 2022-05-12 00:00 Sumatriptan Succinate [facility] 2022-06-09 00:00 Escitalopram [facility] 2022-06-09 00:00 [facility] Problems date description facility 2022-05-12 13:03 Liver disease, unspecified [facility] 2022-06-11 00:00 [facility] Procedures date description facility 2022-05-11 00:00 MR abdomen wo/w [facility] Results/Labs test date author facility value unit interpret ation Result panel 1 (unknown) (no (unknown) (unknown) (no value) (units (unk nown) date) unknown) (unknown) (no (unknown) (unknown) [id number] (units (unkn own) date) unknown) (unknown) (no (unknown) (unknown) 05/12/22 (units (unkno wn) date) unknown) (unknown) (no (unknown) (unknown) 11 (units (unkno wn) date) unknown) (unknown) (no (unknown) (unknown) [address] [place] [address] (units (unknown) date) unknown) (unknown) (no (unknown) (unknown) 2D FLASH (units (unkno wn) date) unknown) (unknown) (no (unknown) (unknown) Accession (units (unkn own) date) Number: unknown) [id number] (unknown) (no (unknown) (unknown) Age/Sex: 27 / F (units (unknown) date) Date of Service: unknown) (unknown) (no (unknown) (unknown) [place], [place] (units ( unknown) date) [id number] unknown) (unknown) (no (unknown) (unknown) Approved by: [...] date) axial 2D FLASH unknown) in- and [id number]-[id number]; axial breath-hold T2 FSE. (unknown) (no (unknown) (unknown) : 1995 (units (unknown) date) Acct:[id number] unknown) (unknown) (no (unknown) (unknown) Dictated by: [...] metallic artifact posteriorly (unknown) (no (unknown) (unknown) [facility] (units (unknown) date) unknown) (unknown) (no (unknown) [...] (unkno wn) date) Anita Reynoso unknown) MR#: M (unknown) (no (unknown) (unknown) Procedure: MR (units ( unknown) date) abdomen wo/w con unknown) (unknown) (no (unknown) (unknown) Signed (units (unkno wn) date) unknown) (unknown) (no (unknown) (unknown) Solid organs: (units ( unknown) date) There is a T2 unknown) hyperintense lesion on image 11/17 measuring 11 by (unknown) (no (unknown) (unknown) [...] to the iliac crests. Optional Result panel 2 (unknown) (no (unknown) (unknown) (no value) (units (unk nown) date) unknown) (unknown) (no (unknown) (unknown) [id number] (units (unkno wn) date) unknown) (unknown) (no (unknown) (unknown) 06/09/22 (units (unkno wn) date) unknown) (unknown) (no (unknown) (unknown) Age/Sex: 27 / F (units (unknown) date) Date of Service: unknown) (unknown) (no (unknown) (unknown) Allergies (units (unkn own) date) unknown) (unknown) (no (unknown) (unknown) [place], [place] (units ( unknown) date) [id number] unknown) (unknown) (no (unknown) (unknown) Anesthesia (units (unk nown) date) unknown) (unknown) (no (unknown) (unknown) Attending Dr: (units ( unknown) date) Vin HUBER unknown) (unknown) (no (unknown) (unknown) Back pain, (units (unk nown) date) lumbosacral unknown) (unknown) (no (unknown) (unknown) : 1995 (units (unknown) date) Acct:[id number] unknown) (unknown) (no (unknown) (unknown) Dept at (units (unkno wn) date) . unknown) (unknown) (no (unknown) (unknown) Documented By: (units (unknown) date) OmarVin unknown) 06/09/22 1452 (unknown) (no (unknown) (unknown) [...] Visit Reasons: (units (unknown) date) ER in [facility] unknown) (unknown) (no (unknown) (unknown) have occurred. [...] unknown) effort is made to edit content, retail performance specialist errors Result panel 3 (unknown) (no (unknown) (unknown) (no value) (units (unk nown) date) unknown) (unknown) (no (unknown) (unknown) [id number] (units (unkno wn) date) unknown) (unknown) (no (unknown) (unknown) 05/13/22 [Rx (units (u nknown) date) Confirmed unknown) 06/09/22] (unknown) (no (unknown) (unknown) 06/09/22 (units (unkno wn) date) unknown) (unknown) (no (unknown) (unknown) 14:53 (units (unkno wn) date) unknown) (unknown) (no (unknown) (unknown) 27 yo female (units (un known) date) presents for ED unknown) follow up from [facility]. Is still feeling dizzy with (unknown) (no (unknown) (unknown) Age/Sex: 27 / F (units (unknown) date) Date of Service: unknown) (unknown) (no (unknown) (unknown) Allergies (units (unkn own) date) unknown) (unknown) (no (unknown) (unknown) JARED Garcia (units ( unknown) date) [id number] unknown) (unknown) (no (unknown) (unknown) Anesthesia (units [...] (unknown) (unknown) : 1995 (units (unknown) date) Acct:[id number] unknown) (unknown) (no (unknown) (unknown) Dept at [...] Visit Reasons: (units (unknown) date) ER in [facility] unknown) (unknown) (no (unknown) (unknown) Vitals (units [...] unknown) effort is made to edit content, retail performance specialist errors (unknown) (no (unknown) (unknown) sumatriptan (units (un known) date) succinate 25 mg unknown) tablet See Rx Instructions PO .COMPLEX #30 tabs (unknown) (no (unknown) (unknown) which helped the (units (unknown) date) dizziness. unknown) Result panel 4 (unknown) (no (unknown) (unknown) (no value) (units (unk nown) date) unknown) (unknown) (no (unknown) (unknown) [id number] (units (unkno wn) date) unknown) (unknown) (no (unknown) (unknown) 05/13/22 [Rx (units (u nknown) date) Confirmed 06/09/22] unknown) (unknown) (no (unknown) (unknown) 06/09/22 (units (unkno wn) date) unknown) (unknown) (no (unknown) (unknown) 14:53 (units (unkno wn) date) unknown) (unknown) (no (unknown) (unknown) 26-year-old female (units (unknown) date) presents to unknown) [facility] care. She lives in [place], (unknown) (no (unknown) (unknown) 27 yo female (units (un known) date) presents for ED unknown) follow up from [facility]. Is still feeling dizzy with (unknown) (no (unknown) (unknown) Age/Sex: 27 / F (units (unknown) date) Date of Service: unknown) (unknown) (no (unknown) (unknown) Allergies (units (unkn own) date) unknown) (unknown) (no (unknown) (unknown) [place], [place] (units ( unknown) date) [id number] unknown) (unknown) (no (unknown) (unknown) Anesthesia (units [...] (unknown) (unknown) : 1995 (units (unknown) date) Acct:[id number] unknown) (unknown) (no (unknown) (unknown) July. Patient (units (unknown) date) grew up in unknown) [place]. She worked as a [employer] in [place] and is (unknown) (no (unknown) (unknown) Dept [...] (units (unknown) date) seen by [facility]) [facility] who she reports (unknown) [...] smoker unknown) (unknown) (no (unknown) (unknown) States [place]. (units (u nknown) date) unknown) (unknown) (no [...] Visit Reasons: ER (units (unknown) date) in [facility] unknown) (unknown) (no (unknown) (unknown) Vitals (units (unkno wn) date) unknown) (unknown) (no (unknown) (unknown) [place] with (units (unknown) date) her . They unknown) moved to the area from [place] last (unknown) (no (unknown) (unknown) Weight 76.204 [...] (unknown) date) to become licensed unknown) in [place]. is in the [place] (unknown) (no (unknown) (unknown) during the menses. [...] effort is unknown) made to edit content, retail performance specialist errors (unknown) (no (unknown) (unknown) staff to [...] she is back (units (unknown) date) in [place] in unknown) April she will get pelvic [...] (unkno wn) date) beneficial. unknown) Result panel 5 (unknown) (no (unknown) (unknown) (no value) (units (unk nown) date) unknown) (unknown) (no (unknown) (unknown) [id number] (units (unkno wn) date) unknown) (unknown) (no (unknown) (unknown) 05/13/22 [Rx (units (u nknown) date) Confirmed 06/09/22] unknown) (unknown) (no (unknown) (unknown) 06/09/22 (units (unkno wn) date) unknown) (unknown) (no (unknown) (unknown) 14:53 (units (unkno wn) date) unknown) (unknown) (no (unknown) (unknown) 26-year-old female (units (unknown) date) presents to unknown) establish care. She lives in [place], (unknown) (no (unknown) (unknown) 27 yo female (units (un known) date) presents for ED unknown) follow up from [facility]. Is still feeling dizzy with (unknown) (no (unknown) (unknown) Age/Sex: 27 / F (units (unknown) date) Date of Service: unknown) (unknown) (no (unknown) (unknown) Allergies (units (unkn own) date) unknown) (unknown) (no (unknown) (unknown) [place], [place] (units ( unknown) date) [id number] unknown) (unknown) (no (unknown) (unknown) Anesthesia (units [...] (unknown) (unknown) : 1995 (units (unknown) date) Acct:[id number] unknown) (unknown) (no (unknown) (unknown) July. Patient (units (unknown) date) grew up in unknown) [place]. She worked as a [employer] in [place] and is (unknown) (no (unknown) (unknown) Dept [...] (units (unknown) date) seen by [facility] unknown) [facility] gastro who she reports (unknown) (no (unknown) [...] smoker unknown) (unknown) (no (unknown) (unknown) [place] (units (u nknown) date) unknown) (unknown) (no [...] Visit Reasons: ER (units (unknown) date) in [facility] unknown) (unknown) (no (unknown) (unknown) Vitals (units (unkno wn) date) unknown) (unknown) (no (unknown) (unknown) [place] with (units (unknown) date) her . They unknown) moved to the area from [place] last (unknown) (no (unknown) (unknown) Weight 76.204 [...] (unknown) date) to become licensed unknown) in [place]. is in the [place] (unknown) (no (unknown) (unknown) during the menses. [...] effort is unknown) made to edit content, retail performance specialist errors (unknown) (no (unknown) (unknown) staff to [...] she is back (units (unknown) date) in [place] in unknown) April she will get pelvic [...] (unkno wn) date) beneficial. unknown) Result panel 6 (unknown) (no (unknown) (unknown) (no value) (units (unk nown) date) unknown) (unknown) (no (unknown) (unknown) [id number] (units (unkno wn) date) unknown) (unknown) (no (unknown) (unknown) 05/13/22 [Rx (units (u nknown) date) Confirmed 06/09/22] unknown) (unknown) (no (unknown) (unknown) 06/09/22 (units (unkno wn) date) unknown) (unknown) (no (unknown) (unknown) 14:53 (units (unkno wn) date) unknown) (unknown) (no (unknown) (unknown) 26-year-old female (units (unknown) date) presents to unknown) [facility] care. She lives in [place], (unknown) (no (unknown) (unknown) 27 yo female (units (un known) date) presents for ED unknown) follow up from [facility]. Is still feeling dizzy with (unknown) (no (unknown) (unknown) Age/Sex: 27 / F (units (unknown) date) Date of Service: unknown) (unknown) (no (unknown) (unknown) Allergies (units (unkn own) date) unknown) (unknown) (no (unknown) (unknown) [place], [place] (units ( unknown) date) [id number] unknown) (unknown) (no (unknown) (unknown) Anesthesia (units [...] (unknown) (unknown) : 1995 (units (unknown) date) Acct:[id number] unknown) (unknown) (no (unknown) (unknown) [place]. Patient (units (unknown) date) grew up in unknown) [place]. She worked as a [employer] in [place] and is (unknown) (no (unknown) (unknown) Dept [...] (units (unknown) date) seen by [facility] unknown) [facility] group gastro who she reports (unknown) (no [...] smoker unknown) (unknown) (no (unknown) (unknown) [place] (units (u nknown) date) unknown) (unknown) (no [...] Visit Reasons: ER (units (unknown) date) in [facility] unknown) (unknown) (no (unknown) (unknown) Vitals (units (unkno wn) date) unknown) (unknown) (no (unknown) (unknown) [place] with (units (unknown) date) her . They unknown) moved to the area from [place] last (unknown) (no (unknown) (unknown) Weight 76.204 [...] (unknown) date) to become licensed unknown) in [place] (no (unknown) [...] effort is unknown) made to edit content, retail performance specialist errors (unknown) (no (unknown) (unknown) staff to [...] she is back (units (unknown) date) in [place] in unknown) April she will get pelvic [...] (unkno wn) date) beneficial. unknown) Result panel 7 (unknown) (no (unknown) (unknown) (no value) (units (unk nown) date) unknown) (unknown) (no (unknown) (unknown) [id number] (units (unkno wn) date) unknown) (unknown) (no (unknown) (unknown) 05/13/22 [Rx (units (u nknown) date) Confirmed 06/09/22] unknown) (unknown) (no (unknown) (unknown) 06/09/22 (units (unkno wn) date) unknown) (unknown) (no (unknown) (unknown) 14:53 (units (unkno wn) date) unknown) (unknown) (no (unknown) (unknown) 26-year-old female (units (unknown) date) presents to unknown) establish care. She lives in [place], (unknown) (no (unknown) (unknown) 27 yo female (units (un known) date) presents for ED unknown) follow up from [facility]. Is still feeling dizzy with (unknown) (no (unknown) (unknown) Age/Sex: 27 / F (units (unknown) date) Date of Service: unknown) (unknown) (no (unknown) (unknown) Allergies (units (unkn own) date) unknown) (unknown) (no (unknown) (unknown) JARED [place] (units ( unknown) date) [id number] unknown) (unknown) (no (unknown) (unknown) Anesthesia (units [...] (unknown) (unknown) : 1995 (units (unknown) date) Acct:[id number] unknown) (unknown) (no (unknown) (unknown) July. Patient (units (unknown) date) grew up in unknown) [place]. She worked as a [employer] in [place] and is (unknown) (no (unknown) (unknown) Dept [...] (units (unknown) date) seen by [facility] unknown) [facility] gastro who she reports (unknown) (no (unknown) [...] smoker unknown) (unknown) (no (unknown) (unknown) [place] (units (u nknown) date) unknown) (unknown) (no [...] Visit Reasons: ER (units (unknown) date) in [facility] unknown) (unknown) (no (unknown) (unknown) Vitals (units (unkno wn) date) unknown) (unknown) (no (unknown) (unknown) [place] (units (unknown) date) her . They unknown) moved to the area from [place] last (unknown) (no (unknown) (unknown) Weight 76.204 [...] (unknown) date) to become licensed unknown) in [place]. is in the [place] (unknown) (no (unknown) (unknown) during the menses. [...] the unknown) report when she sees Ms. aRndle. (unknown) (no (unknown) (unknown) positive for CHEK2 [...] effort is unknown) made to edit content, retail performance specialist errors (unknown) (no (unknown) (unknown) staff to [...] she is back (units (unknown) date) in [place] in unknown) April she will get pelvic [...] (unkno wn) date) beneficial. unknown) Result panel 8 (unknown) (no (unknown) (unknown) (no value) (units (unk nown) date) unknown) (unknown) (no (unknown) (unknown) (1) Vertigo: (units (u nknown) date) unknown) (unknown) (no (unknown) (unknown) (2) Tingling: (units ( unknown) date) unknown) (unknown) (no (unknown) (unknown) (3) Migraine: (units ( unknown) date) unknown) (unknown) (no (unknown) (unknown) [id number] (units (unkno wn) date) unknown) (unknown) (no (unknown) (unknown) 06/09/22 (units (unkno wn) date) unknown) (unknown) (no (unknown) (unknown) 06/09/22] (units (unkn own) date) unknown) (unknown) (no (unknown) (unknown) 14:53 (units (unkno wn) date) unknown) (unknown) (no (unknown) (unknown) 26-year-old female (units (unknown) date) presents to unknown) [facility] care. She lives in [place], (unknown) (no (unknown) (unknown) 27 yo female (units (un known) date) presents for ED unknown) follow up from [facility]. Is still feeling dizzy with (unknown) (no (unknown) (unknown) Age/Sex: 27 / F (units (unknown) date) Date of Service: unknown) (unknown) (no (unknown) (unknown) Allergies (units (unkn own) date) unknown) (unknown) (no (unknown) (unknown) [place], [place] (units ( unknown) date) [id number] unknown) (unknown) (no (unknown) (unknown) Anesthesia (units [...] (unknown) (unknown) : 1995 (units (unknown) date) Acct:[id number] unknown) (unknown) (no (unknown) (unknown) July. Patient (units (unknown) date) grew up in unknown) [place]. 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 She may do (unknown) (no (unknown) (unknown) Patient: (units (unkno wn) date) Anita Reynoso Rich unknown) MR#: [id number] (unknown) (no (unknown) [...] smoker unknown) (unknown) (no (unknown) (unknown) [place] [place] (units (u nknown) date) unknown) (unknown) (no [...] Visit Reasons: ER (units (unknown) date) in [facility] unknown) (unknown) (no (unknown) (unknown) Vitals (units (unkno wn) date) unknown) (unknown) (no (unknown) (unknown) [place] (units (unknown) date) her . They unknown) moved to the area from [place] last (unknown) (no (unknown) (unknown) Weight 76.204 [...] (unknown) date) to become licensed unknown) in [place]. is [place] the [place] ([place]) (no (unknown) [...] effort is unknown) made to edit content, retail performance specialist errors (unknown) (no (unknown) (unknown) staff to [...] she is back (units (unknown) date) in [place] in unknown) April she will get pelvic [...] (unkno wn) date) beneficial. unknown) Result panel 9 (unknown) (no (unknown) (unknown) (no value) (units (unk nown) date) unknown) (unknown) (no (unknown) (unknown) (1) Vertigo: (units (u nknown) date) unknown) (unknown) (no (unknown) (unknown) (2) Tingling: (units ( unknown) date) unknown) (unknown) (no (unknown) (unknown) (3) Migraine: (units ( unknown) date) unknown) (unknown) (no (unknown) (unknown) [id number] (units (unkno wn) date) unknown) (unknown) (no (unknown) (unknown) 06/09/22 (units (unkno wn) date) unknown) (unknown) (no (unknown) (unknown) 06/09/22] (units (unkn own) date) unknown) (unknown) (no (unknown) (unknown) 14:53 (units (unkno wn) date) unknown) (unknown) (no (unknown) (unknown) 26-year-old female (units (unknown) date) presents to unknown) establish care. She lives in [place], (unknown) (no (unknown) (unknown) 27 yo female (units (un known) date) presents for ED unknown) follow up from [facility]. Is still feeling dizzy with (unknown) (no (unknown) (unknown) 27-year-old female (units (unknown) date) presents to unknown) [facility] (no (unknown) (unknown) Age/Sex: 27 / F (units (unknown) date) Date of Service: unknown) (unknown) (no (unknown) (unknown) Allergies (units (unkn own) date) unknown) (unknown) (no (unknown) (unknown) [place], [place] (units ( unknown) date) [id number] unknown) (unknown) (no (unknown) (unknown) Anesthesia (units [...] (unknown) (unknown) : 1995 (units (unknown) date) Acct:[id number] unknown) (unknown) (no (unknown) (unknown) [place]. Patient (units (unknown) date) grew up in unknown) [place]. She worked as a [employer] in [place] and is (unknown) (no (unknown) (unknown) Dept [...] (units (unknown) date) seen by [facility] unknown) [facility] gastro who she reports (unknown) (no (unknown) [...] smoker unknown) (unknown) (no (unknown) (unknown) [place] (units (u nknown) date) unknown) (unknown) (no [...] Visit Reasons: ER (units (unknown) date) in [facility] unknown) (unknown) (no (unknown) (unknown) Vitals (units (unkno wn) date) unknown) (unknown) (no (unknown) (unknown) [place] (units (unknown) date) her . They unknown) moved to the area from [place] last (unknown) (no (unknown) (unknown) Weight 76.204 [...] (unknown) date) to become licensed unknown) in [place]. is in the [place] (unknown) (no (unknown) (unknown) during the menses. [...] effort is unknown) made to edit content, retail performance specialist errors (unknown) (no (unknown) (unknown) staff to [...] she is back (units (unknown) date) in [place] in unknown) April she will get pelvic [...] unknown) date) unknown) (unknown) (no (unknown) (unknown) [id number] (units (unkno wn) date) unknown) (unknown) (no (unknown) (unknown) 06/09/22 (units (unkno wn) date) unknown) (unknown) (no (unknown) (unknown) 06/09/22] (units (unkn own) date) unknown) (unknown) (no (unknown) (unknown) 14:53 (units (unkno wn) date) unknown) (unknown) (no (unknown) (unknown) 26-year-old female (units (unknown) date) presents to unknown) establish care. She lives in [place], (unknown) (no (unknown) (unknown) 27 yo female (units (un known) date) presents for ED unknown) follow up from [facility]. Is still feeling dizzy with (unknown) (no (unknown) (unknown) 27-year-old female (units (unknown) date) presents to unknown) [facility] (unknown) (no (unknown) (unknown) Age/Sex: 27 / F (units (unknown) date) Date of Service: unknown) (unknown) (no (unknown) (unknown) Allergies (units (unkn own) date) unknown) (unknown) (no (unknown) (unknown) [place], [place] (units ( unknown) date) [id number] unknown) (unknown) (no (unknown) (unknown) Anesthesia (units [...] (unknown) (unknown) : 1995 (units (unknown) date) Acct:[id number] unknown) (unknown) (no (unknown) (unknown) [place]. Patient (units (unknown) date) grew up in unknown) [place]. She worked as a [employer] in [place] and is (unknown) (no (unknown) (unknown) Dept [...] (units (unknown) date) seen by [facility] unknown) [facility] gastro who she reports (unknown) (no (unknown) [...] smoker unknown) (unknown) (no (unknown) (unknown) [place] [employer] (units (u nknown) date) unknown) (unknown) (no [...] Visit Reasons: ER (units (unknown) date) in [facility] unknown) (unknown) (no (unknown) (unknown) Vitals (units (unkno wn) date) unknown) (unknown) (no (unknown) (unknown) [place] with (units (unknown) date) her . They unknown) moved to the area from [place] last (unknown) (no (unknown) (unknown) Weight 76.204 [...] (unknown) date) to become licensed unknown) in [place]. is in the [place] (unknown) (no (unknown) (unknown) during the menses. [...] effort is unknown) made to edit content, retail performance specialist errors (unknown) (no (unknown) (unknown) staff to passes (units (unknown) date) information onto unknown) the patient and also to offer referral to (unknown) (no (unknown) (unknown) states that in the (units (unknown) date) past she was on MAYRLIN unknown) pill for about 9 years. (unknown) [...] she is back (units (unknown) date) in [place] in unknown) April she will get pelvic [...] (unkno wn) date) beneficial. unknown) Result panel 11 (unknown) (no (unknown) (unknown) (no value) (units (unk nown) date) unknown) (unknown) (no (unknown) (unknown) (1) Vertigo: (units (u nknown) date) unknown) (unknown) (no (unknown) (unknown) (2) Tingling: (units ( unknown) date) unknown) (unknown) (no (unknown) (unknown) (3) Migraine: (units ( unknown) date) unknown) (unknown) (no (unknown) (unknown) (4) Anxiety: (units (u nknown) date) unknown) (unknown) (no (unknown) (unknown) [id number] (units (unkno wn) date) unknown) (unknown) (no [...] presents for ED unknown) follow up from [facility]. Is still feeling dizzy with (unknown) (no (unknown) (unknown) 27-year-old (units (un known) date) female presents to unknown) [facility] (unknown) (no (unknown) (unknown) Affect: normal (units (unknown) date) affect unknown) (unknown) (no (unknown) (unknown) Age/Sex: 27 / F (units (unknown) date) Date of Service: unknown) (unknown) (no (unknown) (unknown) All systems (units (un known) date) reviewed + are unknown) unremarkable except as noted in HPI and below (unknown) (no (unknown) (unknown) Allergies (units (unkn own) date) unknown) (unknown) (no (unknown) (unknown) [place], [place] (units ( unknown) date) [id number] unknown) (unknown) (no (unknown) (unknown) Anesthesia (units [...] (unknown) (unknown) Coordination: (units ( unknown) date) [id number] test unknown) normal and rapid alternating movement UE normal (unknown) (no (unknown) (unknown) Cranial Nerves: (units (unknown) date) CN's II-XI intact unknown) bilaterally, PERRL and EOM intact bilaterally (unknown) (no (unknown) (unknown) : 1995 (units (unknown) date) Acct:[id number] unknown) (unknown) (no (unknown) (unknown) DTR's: Rt Biceps: (units (unknown) date) 2+, Lt Biceps: 2+, unknown) Rt Patellar: 2+ and Lt Patellar: 2 (unknown) (no (unknown) (unknown) Dept at (units (unkno wn) date) . unknown) (unknown) (no (unknown) (unknown) Details: (units (o wn) date) unknown) (unknown) (no (unknown) (unknown) Discontinued (units (u nknown) date) Reason: Dose unknown) Change take 1 tab at onset of headache; if no (unknown) (no (unknown) (unknown) Discontinued (units (u nknown) date) unknown) (unknown) (no (unknown) (unknown) Documented By: (units (unknown) date) Vin Nelson unknown) 06/09/22 1452 (unknown) (no (unknown) (unknown) Draft (units (o wn) date) unknown) (unknown) (no (unknown) (unknown) [...] Visit Reasons: ER (units (unknown) date) in [facility] unknown) (unknown) (no (unknown) (unknown) Vitals (units [...] unknown) effort is made to edit content, retail performance specialist errors (unknown) (no (unknown) (unknown) sometimes on [...] se. No family history of Result panel 12 (unknown) (no (unknown) (unknown) (no value) (units (unk nown) date) unknown) (unknown) (no (unknown) (unknown) (1) Vertigo: (units (u nknown) date) unknown) (unknown) (no (unknown) (unknown) (2) Tingling: (units ( unknown) date) unknown) (unknown) (no (unknown) (unknown) (3) Migraine: (units ( unknown) date) unknown) (unknown) (no (unknown) (unknown) (4) Anxiety: (units (u nknown) date) unknown) (unknown) (no (unknown) (unknown) [id number] (units (unkno wn) date) unknown) (unknown) (no [...] presents for ED unknown) follow up from [facility]. Is still feeling dizzy with (unknown) (no (unknown) (unknown) 27-year-old (units (un known) date) female presents to unknown) [facility] [employer] [facility] (unknown) (no (unknown) (unknown) ALL numbers (units [...] own) date) unknown) (unknown) (no (unknown) (unknown) [place], [place] (units ( unknown) date) [id number] unknown) (unknown) (no (unknown) (unknown) Anesthesia (units [...] (unknown) (unknown) Coordination: (units ( unknown) date) [id number] test unknown) normal and rapid alternating movement UE normal (unknown) (no (unknown) (unknown) Counseling and (units (unknown) date) educating the unknown) patient/family/car egiver: 15 (unknown) (no (unknown) (unknown) Cranial Nerves: (units (unknown) date) CN's II-XI intact unknown) bilaterally, PERRL and EOM intact bilaterally (unknown) (no (unknown) (unknown) : 1995 (units (unknown) date) Acct:[id number] unknown) (unknown) (no (unknown) (unknown) DTR's: Rt [...] By: (units (unknown) date) Vin Nelson unknown) 11/09/22 1452 (unknown) (no (unknown) (unknown) ED at [...] unknown) (unknown) (no (unknown) (unknown) New (units (o wn) date) unknown) (unknown) (no (unknown) (unknown) Nose: external (units (unknown) date) nose normal, nasal unknown) mucous membranes and turbinates normal and no (unknown) (no (unknown) (unknown) Ordering (units (o wn) date) medications, unknown) tests, or procedures: [...] Visit Reasons: ER (units (unknown) date) in [facility] unknown) (unknown) (no (unknown) (unknown) Vitals (units [...] unknown) effort is made to edit content, retail performance specialist errors (unknown) (no (unknown) (unknown) some (units [...] own) date) symptoms or other unknown) concerns. Result panel 13 (unknown) (no (unknown) (unknown) (no value) (units (unk nown) date) unknown) (unknown) (no (unknown) (unknown) [id number] (units (unkno wn) date) unknown) (unknown) (no (unknown) (unknown) 06/11/22 [Rx (units (u nknown) date) Confirmed unknown) 07/13/22] (unknown) (no (unknown) (unknown) 07/13/22 (units (unkno wn) date) unknown) (unknown) (no (unknown) (unknown) 07/13/22] (units (unkn own) date) unknown) (unknown) (no (unknown) (unknown) 15:41 (units (unkno wn) date) unknown) (unknown) (no (unknown) (unknown) 27 yo female (units (u nknown) date) presents today unknown) for a f/u meds and dizziness. (unknown) (no (unknown) (unknown) Age/Sex: 27 / F (units (unknown) date) Date of Service: unknown) (unknown) (no (unknown) (unknown) Allergies (units (unkn own) date) unknown) (unknown) (no (unknown) (unknown) [place], [place] (units ( unknown) date) [id number] unknown) (unknown) (no (unknown) (unknown) Anesthesia (units (unk nown) date) unknown) (unknown) (no (unknown) (unknown) Anxiety (units (unkno wn) date) unknown) (unknown) (no (unknown) (unknown) Attending Dr: (units ( unknown) date) Vin HUBER unknown) (unknown) (no (unknown) (unknown) Back pain, (units (unk nown) date) lumbosacral unknown) (unknown) (no (unknown) (unknown) Confirmed (units (unkn own) date) 07/13/22] unknown) (unknown) (no (unknown) (unknown) : 1995 (units (unknown) date) Acct:[id number] unknown) (unknown) (no (unknown) (unknown) Dept at (units (unkno wn) date) . unknown) (unknown) (no (unknown) (unknown) Documented By: (units (unknown) date) Vin Nelson unknown) 07/13/22 1540 (unknown) (no (unknown) (unknown) Draft (units (unkno wn) date) unknown) (unknown) (no (unknown) (unknown) Family History (units (unknown) date) (Reviewed unknown) 06/11/22 @ 14:05 by CECILE Higgins) (unknown) (no [...] (unknown) Intake performed (units (unknown) date) by: Sofya Benton unknown) (unknown) (no (unknown) (unknown) Intake (units [...] known) date) Adverse Reaction unknown) (Mild, Verified 07/13/22 15:41) (unknown) (no (unknown) (unknown) Reason For Visit (units (unknown) date) unknown) (unknown) (no (unknown) (unknown) Sciatic leg pain (units (unknown) date) unknown) (unknown) (no (unknown) (unknown) Signed By: (units (unk nown) date) unknown) (unknown) (no (unknown) (unknown) Smoking Status: (units (unknown) date) Never smoker unknown) (unknown) (no (unknown) (unknown) Surgical History (units (unknown) date) (Reviewed unknown) 06/11/22 @ 14:05 by CECILE Higgins) (unknown) (no (unknown) (unknown) This note may (units ( unknown) date) have been all or unknown) partially generated using voice recognition (unknown) (no (unknown) (unknown) Tobacco + (units (unkn own) date) Substance Use unknown) (unknown) (no (unknown) (unknown) Tobacco Status (units (unknown) date) unknown) (unknown) (no (unknown) (unknown) Visit Reasons: (units (unknown) date) f/u unknown) meds,dizziness (unknown) (no (unknown) (unknown) Vitals (units (unkno wn) date) unknown) (unknown) (no (unknown) (unknown) escitalopram (units (u nknown) date) oxalate 5 mg unknown) tablet 5 mg PO DAILY #30 tabs 06/09/22 [Rx Confirmed (unknown) (no (unknown) (unknown) have occurred. (units [...] tabs 06/09/22 [Rx (unknown) (no (unknown) (unknown) occurred due to (units (unknown) date) the inherent unknown) limitations of voice recognition software. Please (unknown) (no (unknown) (unknown) read the note (units ( unknown) date) carefully and unknown) recognize, using context, where these substitutions (unknown) (no (unknown) (unknown) software. (units (unkn own) date) Although every unknown) effort is made to edit content, retail performance specialist errors (unknown) (no (unknown) (unknown) sumatriptan (units (un known) date) succinate 50 mg unknown) tablet See Rx Instructions PO .COMPLEX #10 tabs Result panel 14 (unknown) (no (unknown) (unknown) (no value) (units (unk nown) date) unknown) (unknown) (no (unknown) (unknown) [id number] (units (unkno wn) date) unknown) (unknown) (no (unknown) (unknown) 06/11/22 [Rx (units (u nknown) date) Confirmed unknown) 07/13/22] (unknown) (no (unknown) (unknown) 07/13/22 (units (unkno wn) date) unknown) (unknown) (no (unknown) (unknown) 15:41 (units (unkno wn) date) unknown) (unknown) (no (unknown) (unknown) 27 yo female (units (u nknown) date) presents today unknown) for a f/u meds. Pt states her dizziness has gone (unknown) (no (unknown) (unknown) Age/Sex: 27 / F (units (unknown) date) Date of Service: unknown) (unknown) (no (unknown) (unknown) Allergies (units (unkn own) date) unknown) (unknown) (no (unknown) (unknown) [place], [place] (units ( unknown) date) [id number] unknown) (unknown) (no (unknown) (unknown) Anesthesia (units (unk nown) date) unknown) (unknown) (no (unknown) (unknown) Anxiety (units (unkno wn) date) unknown) (unknown) (no (unknown) (unknown) Attending Dr: (units ( unknown) date) Vin HUBER unknown) (unknown) (no (unknown) (unknown) BMI 24.7 (units (unkno wn) date) unknown) (unknown) (no (unknown) (unknown) BP 104/62 (units (unkn own) date) unknown) (unknown) (no (unknown) (unknown) Back pain, (units (unk nown) date) lumbosacral unknown) (unknown) (no (unknown) (unknown) Blood Pressure (units (unknown) date) Location Lt unknown) brachial (unknown) (no (unknown) (unknown) : 1995 (units (unknown) date) Acct:[id number] unknown) (unknown) (no (unknown) (unknown) Dept at (units (unkno wn) date) . unknown) (unknown) (no (unknown) (unknown) Documented By: (units (unknown) date) Vin Nelson unknown) 07/13/22 1540 (unknown) (no (unknown) (unknown) Draft (units (unkno wn) date) unknown) (unknown) (no (unknown) (unknown) Family History (units (unknown) date) (Reviewed unknown) 06/11/22 @ 14:05 by CECILE Higgins) (unknown) (no [...] (unknown) Intake performed (units (unknown) date) by: Sofya Benton unknown) (unknown) (no (unknown) (unknown) Intake (units [...] Patient: (units (unkno wn) date) Anita Reynoso Rich unknown) MR#: [id number] (unknown) (no (unknown) (unknown) Penicillins (units (un known) date) Adverse Reaction unknown) (Mild, Verified 07/13/22 15:41) (unknown) (no (unknown) (unknown) Position Sitting (units (unknown) date) unknown) (unknown) (no (unknown) (unknown) Pulse 82 (units (unkno wn) date) unknown) (unknown) (no [...] (unknown) Surgical History (units (unknown) date) (Reviewed unknown) 06/11/22 @ 14:05 by CECILE Higgins) (unknown) (no (unknown) (unknown) This note may (units ( unknown) date) have been all or unknown) partially generated using voice recognition (unknown) (no (unknown) (unknown) Tobacco + (units (unkn own) date) Substance Use unknown) (unknown) (no (unknown) (unknown) Tobacco Status (units (unknown) date) unknown) (unknown) (no (unknown) (unknown) Visit Reasons: (units (unknown) date) f/u medication unknown) (unknown) (no (unknown) (unknown) Vitals (units (unkno wn) date) unknown) (unknown) (no (unknown) (unknown) Weight 172 lb 4 (units (unknown) date) oz unknown) (unknown) (no (unknown) (unknown) away and was (units (u nknown) date) unable to get unknown) into the ENT at [facility]. Pt also states she stopped (unknown) (no (unknown) (unknown) have occurred. (units [...] unknown) effort is made to edit content, retail performance specialist errors (unknown) (no (unknown) (unknown) sumatriptan (units (un known) date) succinate 50 mg unknown) tablet See Rx Instructions PO .COMPLEX #10 tabs (unknown) (no (unknown) (unknown) taking lexapro x (units (unknown) date) 2 weeks ago due unknown) to lack of sleep. Result panel 15 (unknown) (no (unknown) (unknown) (no value) (units (unk nown) date) unknown) (unknown) (no (unknown) (unknown) [id number] (units (unkno wn) date) unknown) (unknown) (no (unknown) (unknown) 06/11/22 [Rx (units (u nknown) date) Confirmed unknown) 07/13/22] (unknown) (no (unknown) (unknown) 07/13/22 (units (unkno wn) date) unknown) (unknown) (no (unknown) (unknown) 15:41 (units (unkno wn) date) unknown) (unknown) (no (unknown) (unknown) 27 yo female (units (u nknown) date) presents today for unknown) a f/u meds. Pt states her dizziness has gone (unknown) (no (unknown) (unknown) 27-year-old (units (un known) date) female presents to unknown) follow-up on recent visit to [facility] (unknown) (no (unknown) (unknown) Age/Sex: 27 / F (units (unknown) date) Date of Service: unknown) (unknown) (no (unknown) (unknown) Allergies (units (unkn own) date) unknown) (unknown) (no (unknown) (unknown) [place], [place] (units ( unknown) date) [id number] unknown) (unknown) (no (unknown) (unknown) Anesthesia (units (unk nown) date) unknown) (unknown) (no (unknown) (unknown) Anxiety (units (unkno wn) date) unknown) (unknown) (no (unknown) (unknown) Attending Dr: (units ( unknown) date) Vin HUBER unknown) (unknown) (no (unknown) (unknown) BMI 24.7 (units (unkno wn) date) unknown) (unknown) (no (unknown) (unknown) BP 104/62 (units (unkn own) date) unknown) (unknown) (no (unknown) (unknown) Back pain, (units (unk nown) date) lumbosacral unknown) (unknown) (no (unknown) (unknown) Blood Pressure (units (unknown) date) Location Lt unknown) brachial (unknown) (no (unknown) (unknown) CT was performed (units (unknown) date) with normal unknown) results, lab work unremarkable.? Sumatriptan was (unknown) (no (unknown) (unknown) Chief Complaint (units (unknown) date) unknown) (unknown) (no (unknown) (unknown) Chief Complaint: (units (unknown) date) f/u ED unknown) visit/dizziness/nu mbness/tingling/an xiety (unknown) (no (unknown) (unknown) : 1995 (units (unknown) date) Acct:[id number] unknown) (unknown) (no (unknown) (unknown) Dept at (units (unkno wn) date) . unknown) (unknown) (no (unknown) (unknown) Details: (units (unkno wn) date) unknown) (unknown) (no (unknown) (unknown) Documented By: (units (unknown) date) Vin Nelson unknown) 07/13/22 1540 (unknown) (no (unknown) (unknown) Draft (units (unkno wn) date) unknown) (unknown) (no (unknown) (unknown) ED at that time. (units (unknown) date) unknown) (unknown) (no (unknown) (unknown) ED on June 06.? (units (unknown) date) She reports that 2 unknown) days prior to the ED visit she was at work (unknown) (no (unknown) (unknown) Family History (units [...] (unknown) Intake performed (units (unknown) date) by: Sofya Benton unknown) (unknown) (no (unknown) (unknown) Intake (units [...] known) date) Adverse Reaction unknown) (Mild, Verified 07/13/22 15:41) (unknown) (no (unknown) (unknown) Position Sitting (units (unknown) date) unknown) (unknown) (no (unknown) (unknown) Pulse 82 (units (unkno wn) date) unknown) (unknown) (no [...] (unknown) (unknown) Visit Reasons: (units (unknown) date) f/u medication unknown) (unknown) (no (unknown) (unknown) Vitals (units (unkno wn) date) unknown) (unknown) (no (unknown) (unknown) Weight 78.131 kg (units (unknown) date) unknown) (unknown) (no (unknown) (unknown) about 2 weeks ago (units (unknown) date) which she enjoys. unknown) (unknown) (no (unknown) (unknown) although the (units (u nknown) date) anxiety has never unknown) before caused symptoms such as these she does (unknown) (no (unknown) (unknown) anxiety (units (unkno wn) date) medications in the unknown) past.? 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. Pt also states she stopped (unknown) (no (unknown) (unknown) began to feel [...] after discharge from (unknown) (no (unknown) (unknown) feeling as bad as (units (unknown) date) she had been unknown) before. (unknown) (no (unknown) (unknown) feeling as though (units (unknown) date) she is moving or unknown) rocking rather than the room itself (unknown) (no (unknown) (unknown) feeling much (units (u nknown) date) better. unknown) (unknown) (no (unknown) (unknown) fevers.? Nausea (units (unknown) date) but no vomiting.? unknown) Appetite somewhat decreased.? No visual (unknown) (no (unknown) (unknown) given in the ED (units (unknown) date) for possible unknown) atypical migraine after which she did feel (unknown) (no (unknown) (unknown) gone now. (units (unkn own) date) unknown) (unknown) (no (unknown) (unknown) have occurred. If (units (unknown) date) there are any unknown) questions, please contact the Medical Records (unknown) (no (unknown) (unknown) hearing.? Had a (units (unknown) date) mild headache, no unknown) nausea or light sensitivity.? At the ED head (unknown) (no (unknown) (unknown) intermittently.? (units (unknown) [...] where these substitutions (unknown) (no (unknown) (unknown) she took last (units ( unknown) date) night and this unknown) seemed to help temporarily but this morning was (unknown) (no (unknown) (unknown) significantly (units ( unknown) date) improved although unknown) not 100% relieved.? She was discharged from the (unknown) (no (unknown) (unknown) software. (units (unkn own) date) Although every unknown) effort is made to edit content, retail performance specialist errors (unknown) (no (unknown) (unknown) some (units [...] or loss of (unknown) (no (unknown) (unknown) src never called (units (unknown) date) stated never got unknown) referral but sx gone so (unknown) (no (unknown) (unknown) stopped lexaprol (units (unknown) date) d/t not sleeping. unknown) (unknown) (no (unknown) (unknown) sumatriptan for (units (unknown) date) her typical unknown) migraines and it usually does help.? She had a (unknown) (no (unknown) (unknown) sumatriptan (units (un known) date) succinate 50 mg unknown) tablet See Rx Instructions PO .COMPLEX #10 tabs (unknown) (no (unknown) (unknown) taking ashwaganda (units (unknown) date) helpig with sleep. unknown) (unknown) (no (unknown) (unknown) taking lexapro x (units (unknown) date) 2 weeks ago due to unknown) lack of sleep. (unknown) (no (unknown) (unknown) telehealth (units (unk [...] not help. unknown) (unknown) (no (unknown) (unknown) wonder if it is (units (unknown) date) at least a unknown) contributory factor.? 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 Result panel 16 (unknown) (no (unknown) (unknown) (no value) (units (unk nown) date) unknown) (unknown) (no (unknown) (unknown) (1) Back pain, (units (unknown) date) lumbosacral: unknown) (unknown) (no (unknown) (unknown) (2) Neck pain: (units (unknown) date) unknown) (unknown) (no (unknown) (unknown) (3) Upper back (units (unknown) date) pain: unknown) (unknown) (no (unknown) (unknown) (4) Bilateral (units ( unknown) date) shoulder pain: unknown) (unknown) (no (unknown) (unknown) [id number] (units (unkno wn) date) unknown) (unknown) (no (unknown) (unknown) 06/11/22 [Rx (units (u nknown) date) Confirmed unknown) 07/13/22] (unknown) (no (unknown) (unknown) 07/13/22 (units (unkno wn) date) unknown) (unknown) (no (unknown) (unknown) 15:41 (units (unkno wn) date) unknown) (unknown) (no (unknown) (unknown) 27 yo female (units (u nknown) date) presents today for unknown) a f/u meds. Pt states her dizziness has gone (unknown) (no (unknown) (unknown) 27-year-old (units (un known) date) female presents to unknown) follow-up on recent visit to [facility] (unknown) (no (unknown) (unknown) Age/Sex: 27 / F (units (unknown) date) Date of Service: unknown) (unknown) (no (unknown) (unknown) Allergies (units (unkn own) date) unknown) (unknown) (no (unknown) (unknown) [place], [place] (units ( unknown) date) [id number] unknown) (unknown) (no (unknown) (unknown) Anesthesia (units (unk nown) date) unknown) (unknown) (no (unknown) (unknown) Anxiety (units (unkno wn) date) unknown) (unknown) (no (unknown) (unknown) Assessment + Plan (units (unknown) date) unknown) (unknown) (no (unknown) (unknown) Attending Dr: (units ( unknown) date) Vin HUBER unknown) (unknown) (no (unknown) (unknown) BMI 24.7 (units (unkno wn) date) unknown) (unknown) (no (unknown) (unknown) BP 104/62 (units (unkn own) date) unknown) (unknown) (no (unknown) (unknown) Back pain, (units (unk nown) date) lumbosacral unknown) (unknown) (no (unknown) (unknown) Blood Pressure (units (unknown) date) Location Lt unknown) brachial (unknown) (no (unknown) (unknown) CT was performed (units (unknown) date) with normal unknown) results, lab work unremarkable.? Sumatriptan was (unknown) (no (unknown) (unknown) Chief Complaint (units (unknown) date) unknown) (unknown) (no (unknown) (unknown) Chief Complaint: (units (unknown) date) f/u ED unknown) visit/dizziness/nu mbness/tingling/an xiety (unknown) (no (unknown) (unknown) : 1995 (units (unknown) date) Acct:[id number] unknown) (unknown) (no (unknown) (unknown) Dept at (units (unkno wn) date) . unknown) (unknown) (no (unknown) (unknown) Details: (units (unkno wn) date) unknown) (unknown) (no (unknown) (unknown) Documented By: (units (unknown) date) Vin Nelson unknown) 07/13/22 1540 (unknown) (no (unknown) (unknown) Draft (units (unkno wn) date) unknown) (unknown) (no (unknown) (unknown) ED at that time. (units (unknown) date) unknown) (unknown) (no (unknown) (unknown) ED on June 06.? (units (unknown) date) She reports that 2 unknown) days prior to the ED visit she was at work (unknown) (no (unknown) (unknown) Family History (units [...] (unknown) Intake performed (units (unknown) date) by: Sofya Benton unknown) (unknown) (no (unknown) (unknown) Intake (units [...] date) cancer unknown) (unknown) (no (unknown) (unknown) Orders: (units [...] known) date) Adverse Reaction unknown) (Mild, Verified 07/13/22 15:41) (unknown) (no (unknown) (unknown) Position Sitting (units (unknown) date) unknown) (unknown) (no (unknown) (unknown) Pulse 82 (units (unkno wn) date) unknown) (unknown) (no (unknown) (unknown) Pulse Oximetry (units (unknown) date) (%) 99 unknown) (unknown) (no (unknown) (unknown) Pulse Source (units (u nknown) date) Monitor unknown) (unknown) (no (unknown) (unknown) Reason For Visit (units (unknown) date) unknown) (unknown) (no (unknown) (unknown) Referral (units (unkno wn) date) Occupational unknown) Therapy M25.511 - Pain in right shoulder, M25.512 - Pain (unknown) (no (unknown) (unknown) Referral Physical (units (unknown) date) Therapy M54.50 - unknown) Low back pain, unspecified (unknown) (no (unknown) (unknown) Referrals (units (unkn own) date) unknown) (unknown) (no (unknown) (unknown) Sciatic leg pain (units (unknown) date) unknown) (unknown) (no (unknown) (unknown) Signed By: (units (unk nown) date) unknown) (unknown) (no (unknown) (unknown) Smoking Status: (units (unknown) date) Never smoker unknown) (unknown) (no (unknown) (unknown) Status: Acute [...] (unknown) (unknown) Visit Reasons: (units (unknown) date) f/u medication unknown) (unknown) (no (unknown) (unknown) Vitals (units (unkno wn) date) unknown) (unknown) (no (unknown) (unknown) Weight 78.131 kg (units (unknown) date) unknown) (unknown) (no (unknown) (unknown) about 2 weeks ago (units (unknown) date) which she enjoys. unknown) (unknown) (no (unknown) (unknown) although the (units (u nknown) date) anxiety has never unknown) before caused symptoms such as these she does (unknown) (no (unknown) (unknown) anxiety (units (unkno wn) date) medications in the unknown) past.? 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. Pt also states she stopped (unknown) (no (unknown) (unknown) began to feel [...] after discharge from (unknown) (no (unknown) (unknown) feeling as bad as (units (unknown) date) she had been unknown) before. (unknown) (no (unknown) (unknown) feeling as though (units (unknown) date) she is moving or unknown) rocking rather than the room itself (unknown) (no (unknown) (unknown) feeling much (units (u nknown) date) better. unknown) (unknown) (no (unknown) (unknown) fevers.? Nausea (units (unknown) date) but no vomiting.? unknown) Appetite somewhat decreased.? No visual (unknown) (no (unknown) (unknown) given in the ED (units (unknown) date) for possible unknown) atypical migraine after which she did feel (unknown) (no (unknown) (unknown) gone now. (units (unkn own) date) unknown) (unknown) (no (unknown) (unknown) have occurred. If (units (unknown) date) there are any unknown) questions, please contact the Medical Records (unknown) (no (unknown) (unknown) hearing.? Had a (units (unknown) date) mild headache, no unknown) nausea or light sensitivity.? At the ED head (unknown) (no (unknown) (unknown) in left shoulder, (units (unknown) date) M54.2 - unknown) Cervicalgia, M54.9 - Dorsalgia, unspecified (unknown) (no (unknown) (unknown) intermittently.? (units (unknown) [...] where these substitutions (unknown) (no (unknown) (unknown) she took last (units ( unknown) date) night and this unknown) seemed to help temporarily but this morning was (unknown) (no (unknown) (unknown) significantly (units ( unknown) date) improved although unknown) not 100% relieved.? She was discharged from the (unknown) (no (unknown) (unknown) software. (units (unkn own) date) Although every unknown) effort is made to edit content, retail performance specialist errors (unknown) (no (unknown) (unknown) some (units [...] or loss of (unknown) (no (unknown) (unknown) src never called (units (unknown) date) stated never got unknown) referral but sx gone so (unknown) (no (unknown) (unknown) stopped lexaprol (units (unknown) date) d/t not sleeping. unknown) (unknown) (no (unknown) (unknown) sumatriptan for (units (unknown) date) her typical unknown) migraines and it usually does help.? She had a (unknown) (no (unknown) (unknown) sumatriptan (units (un known) date) succinate 50 mg unknown) tablet See Rx Instructions PO .COMPLEX #10 tabs (unknown) (no (unknown) (unknown) taking ashwaganda (units (unknown) date) helpig with sleep. unknown) (unknown) (no (unknown) (unknown) taking lexapro x (units (unknown) date) 2 weeks ago due to unknown) lack of sleep. (unknown) (no (unknown) (unknown) telehealth (units (unk [...] not help. unknown) (unknown) (no (unknown) (unknown) wonder if it is (units (unknown) date) at least a unknown) contributory factor.? 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 (unknown) (no (unknown) (unknown) (no value) (units (unk nown) date) unknown) (unknown) (no (unknown) (unknown) (1) Back pain, (units (unknown) date) lumbosacral: unknown) (unknown) (no (unknown) (unknown) (2) Neck pain: (units (unknown) date) unknown) (unknown) (no (unknown) (unknown) (3) Upper back (units (unknown) date) pain: unknown) (unknown) (no (unknown) (unknown) (4) Bilateral (units ( unknown) date) shoulder pain: unknown) (unknown) (no (unknown) (unknown) [id number] (units (unkno wn) date) unknown) (unknown) (no (unknown) (unknown) 06/11/22 [Rx (units (u nknown) date) Confirmed unknown) 07/13/22] (unknown) (no (unknown) (unknown) 07/13/22 (units (unkno wn) date) unknown) (unknown) (no (unknown) (unknown) 15:41 (units (unkno wn) date) unknown) (unknown) (no (unknown) (unknown) 27 yo female (units (u nknown) date) presents today for unknown) a f/u meds. Pt states her dizziness has gone (unknown) (no (unknown) (unknown) 27-year-old (units (un known) date) female presents to unknown) follow-up on recent visit to [facility] (unknown) (no (unknown) (unknown) Age/Sex: 27 / F (units (unknown) date) Date of Service: unknown) (unknown) (no (unknown) (unknown) Allergies (units (unkn own) date) unknown) (unknown) (no (unknown) (unknown) [place], [place] (units ( unknown) date) [id number] unknown) (unknown) (no (unknown) (unknown) Anesthesia (units (unk nown) date) unknown) (unknown) (no (unknown) (unknown) Anxiety (units (unkno wn) date) unknown) (unknown) (no (unknown) (unknown) Assessment + Plan (units (unknown) date) unknown) (unknown) (no (unknown) (unknown) Attending Dr: (units ( unknown) date) Vin HUBER unknown) (unknown) (no (unknown) (unknown) BMI 24.7 (units (unkno wn) date) unknown) (unknown) (no (unknown) (unknown) BP 104/62 (units (unkn own) date) unknown) (unknown) (no (unknown) (unknown) Back pain, (units (unk nown) date) lumbosacral unknown) (unknown) (no (unknown) (unknown) Blood Pressure (units (unknown) date) Location Lt unknown) brachial (unknown) (no (unknown) (unknown) CT was performed (units (unknown) date) with normal unknown) results, lab work unremarkable.? Sumatriptan was (unknown) (no (unknown) (unknown) Chief Complaint (units (unknown) date) unknown) (unknown) (no (unknown) (unknown) Chief Complaint: (units (unknown) date) f/u ED unknown) visit/dizziness/nu mbness/tingling/an xiety (unknown) (no (unknown) (unknown) : 1995 (units (unknown) date) Acct:[id number] unknown) (unknown) (no (unknown) (unknown) Dept at (units (unkno wn) date) . unknown) (unknown) (no (unknown) (unknown) Details: (units (unkno wn) date) unknown) (unknown) (no (unknown) (unknown) Documented By: (units (unknown) date) Vin Nelson unknown) 07/13/22 1540 (unknown) (no (unknown) (unknown) Draft (units (unkno wn) date) unknown) (unknown) (no (unknown) (unknown) ED at that time. (units (unknown) date) unknown) (unknown) (no (unknown) (unknown) ED on June 06.? (units (unknown) date) She reports that 2 unknown) days prior to the ED visit she was at work (unknown) (no (unknown) (unknown) Family History (units [...] (unknown) Intake performed (units (unknown) date) by: Sofya Benton unknown) (unknown) (no (unknown) (unknown) Intake (units [...] date) cancer unknown) (unknown) (no (unknown) (unknown) Orders: (units [...] known) date) Adverse Reaction unknown) (Mild, Verified 07/13/22 15:41) (unknown) (no (unknown) (unknown) Position Sitting (units (unknown) date) unknown) (unknown) (no (unknown) (unknown) Pulse 82 (units (unkno wn) date) unknown) (unknown) (no (unknown) (unknown) Pulse Oximetry (units (unknown) date) (%) 99 unknown) (unknown) (no (unknown) (unknown) Pulse Source (units (u nknown) date) Monitor unknown) (unknown) (no (unknown) (unknown) Reason For Visit (units (unknown) date) unknown) (unknown) (no (unknown) (unknown) Referral (units (unkno wn) date) Occupational unknown) Therapy M25.511 - Pain in right shoulder, M25.512 - Pain (unknown) (no (unknown) (unknown) Referral Physical (units (unknown) date) Therapy M54.50 - unknown) Low back pain, unspecified (unknown) (no (unknown) (unknown) Referrals (units (unkn own) date) unknown) (unknown) (no (unknown) (unknown) Sciatic leg pain (units (unknown) date) unknown) (unknown) (no (unknown) (unknown) Signed By: (units (unk nown) date) unknown) (unknown) (no (unknown) (unknown) Smoking Status: (units (unknown) date) Never smoker unknown) (unknown) (no (unknown) (unknown) Status: Acute [...] (unknown) (unknown) Visit Reasons: (units (unknown) date) f/u medication unknown) (unknown) (no (unknown) (unknown) Vitals (units (unkno wn) date) unknown) (unknown) (no (unknown) (unknown) Weight 78.131 kg (units (unknown) date) unknown) (unknown) (no (unknown) (unknown) about 2 weeks ago (units (unknown) date) which she enjoys. unknown) (unknown) (no (unknown) (unknown) although the (units (u nknown) date) anxiety has never unknown) before caused symptoms such as these she does (unknown) (no (unknown) (unknown) anxiety (units (unkno wn) date) medications in the unknown) past.? 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. Pt also states she stopped (unknown) (no (unknown) (unknown) began to feel [...] after discharge from (unknown) (no (unknown) (unknown) feeling as bad as (units (unknown) date) she had been unknown) before. (unknown) (no (unknown) (unknown) feeling as though (units (unknown) date) she is moving or unknown) rocking rather than the room itself (unknown) (no (unknown) (unknown) feeling much (units (u nknown) date) better. unknown) (unknown) (no (unknown) (unknown) fevers.? Nausea (units (unknown) date) but no vomiting.? unknown) Appetite somewhat decreased.? No visual (unknown) (no (unknown) (unknown) given in the ED (units (unknown) date) for possible unknown) atypical migraine after which she did feel (unknown) (no (unknown) (unknown) gone now. (units (unkn own) date) unknown) (unknown) (no (unknown) (unknown) have occurred. If (units (unknown) date) there are any unknown) questions, please contact the Medical Records (unknown) (no (unknown) (unknown) hearing.? Had a (units (unknown) date) mild headache, no unknown) nausea or light sensitivity.? At the ED head (unknown) (no (unknown) (unknown) in left shoulder, (units (unknown) date) M54.2 - unknown) Cervicalgia, M54.9 - Dorsalgia, unspecified (unknown) (no (unknown) (unknown) intermittently.? (units (unknown) date) She began to unknown) experience subjective numbness of her face, (unknown) (no (unknown) (unknown) knuckles, wrists, (units (unknown) date) knees, ankles unknown) although no swelling per se. No family history (unknown) (no (unknown) (unknown) may occur. (units (unk nown) date) Occasional unknown) wrong-word or 'sound-alike' substitutions may have (unknown) (no (unknown) (unknown) no injury, just (units (unknown) date) from baking a lot unknown) of cookies in past 4 weeks. (unknown) (no (unknown) (unknown) occurred due to (units (unknown) date) the inherent unknown) limitations of voice recognition software. Please (unknown) (no (unknown) (unknown) of autoimmune (units ( unknown) date) rheumatological unknown) disorders. (unknown) (no (unknown) (unknown) pt referral from (units (unknown) date) [facility] for lbp unknown) needs renewal. now L and R (unknown) (no (unknown) (unknown) read the note (units ( unknown) date) carefully and unknown) recognize, using context, where these substitutions (unknown) (no (unknown) (unknown) she took last (units ( unknown) date) night and this unknown) seemed to help temporarily but this morning was (unknown) (no (unknown) (unknown) shoulderblade (units ( unknown) date) pain/numbness. no unknown) bue weakness, poss occ lue tingling. neck ok. (unknown) (no (unknown) (unknown) significantly (units ( unknown) date) improved although unknown) not 100% relieved.? She was discharged from the (unknown) (no (unknown) (unknown) software. (units (unkn own) date) Although every unknown) effort is made to edit content, retail performance specialist errors (unknown) (no (unknown) (unknown) some (units [...] or loss of (unknown) (no (unknown) (unknown) src never called (units (unknown) date) stated never got unknown) referral but sx gone so (unknown) (no (unknown) (unknown) stopped lexaprol (units (unknown) date) d/t not sleeping. unknown) (unknown) (no (unknown) (unknown) sumatriptan for (units (unknown) date) her typical unknown) migraines and it usually does help.? She had a (unknown) (no (unknown) (unknown) sumatriptan (units (un known) date) succinate 50 mg unknown) tablet See Rx Instructions PO .COMPLEX #10 tabs (unknown) (no (unknown) (unknown) taking ashwaganda (units (unknown) date) helpig with sleep. unknown) (unknown) (no (unknown) (unknown) taking imitrex (units (unknown) date) prn. unknown) (unknown) (no (unknown) (unknown) taking lexapro x (units (unknown) date) 2 weeks ago due to unknown) lack of sleep. (unknown) (no (unknown) (unknown) telehealth (units (unk [...] not help. unknown) (unknown) (no (unknown) (unknown) wonder if it is (units (unknown) date) at least a unknown) contributory factor.? 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 (unknown) (no (unknown) (unknown) (no value) (units (unk nown) date) unknown) (unknown) (no (unknown) (unknown) (1) Anxiety: (units (u nknown) date) unknown) (unknown) (no (unknown) (unknown) (2) Migraine: (units ( unknown) date) unknown) (unknown) (no (unknown) (unknown) (3) Back pain, (units (unknown) date) lumbosacral: unknown) (unknown) (no (unknown) (unknown) (4) Neck pain: (units (unknown) date) unknown) (unknown) (no (unknown) (unknown) (5) Upper back (units (unknown) date) pain: unknown) (unknown) (no (unknown) (unknown) (6) Bilateral (units ( unknown) date) shoulder pain: unknown) (unknown) (no (unknown) (unknown) [id number] (units (unkno wn) date) unknown) (unknown) (no (unknown) (unknown) 06/11/22 [Rx (units (u nknown) date) Confirmed unknown) 07/13/22] (unknown) (no (unknown) (unknown) 07/13/22 (units (unkno wn) date) unknown) (unknown) (no (unknown) (unknown) 07/16/22 1607 (units ( unknown) date) unknown) (unknown) (no (unknown) (unknown) 15:41 (units (unkno wn) date) unknown) (unknown) (no (unknown) (unknown) 27 yo female (units (u nknown) date) presents today unknown) for a f/u meds. Pt states her dizziness has gone (unknown) (no (unknown) (unknown) 27-year-old (units (unk nown) date) female presents unknown) for follow-up on dizziness/numbnes s/tingling/anxiet y (unknown) (no (unknown) (unknown) Affect: normal (units (unknown) date) affect unknown) (unknown) (no (unknown) (unknown) Age/Sex: 27 / F (units (unknown) date) Date of Service: unknown) (unknown) (no (unknown) (unknown) All systems (units (un known) date) reviewed + are unknown) unremarkable except as noted in HPI and below (unknown) (no (unknown) (unknown) Allergies (units (unkn own) date) unknown) (unknown) (no (unknown) (unknown) [place], [place] (units ( unknown) date) [id number] unknown) (unknown) (no (unknown) (unknown) Anesthesia (units (unk nown) date) unknown) (unknown) (no (unknown) (unknown) Anxiety (units (unkno wn) date) unknown) (unknown) (no (unknown) (unknown) Anxiety: Patient (units (unknown) date) feels that her unknown) anxiety is adequately controlled currently. (unknown) (no (unknown) (unknown) Appearance: (units (un known) date) grossly normal unknown) (unknown) (no (unknown) (unknown) Assessment + (units (u nknown) date) Plan unknown) (unknown) (no (unknown) (unknown) At the time of (units ( unknown) date) last visit we unknown) agreed to refer to neurology and ENT in addition to (unknown) (no (unknown) (unknown) Attending Dr: (units ( unknown) date) Vin HUBER unknown) (unknown) (no (unknown) (unknown) Attitude: (units (unkn own) date) cooperative unknown) (unknown) (no (unknown) (unknown) BMI 24.7 (units (unkno wn) date) unknown) (unknown) (no (unknown) (unknown) BP 104/62 (units (unkn own) date) unknown) (unknown) (no (unknown) (unknown) Back pain, (units (unk nown) date) lumbosacral unknown) (unknown) (no (unknown) (unknown) Bilateral upper (units (unknown) date) extremity: unknown) Sensation intact to light touch, no weakness, cap (unknown) (no (unknown) (unknown) Blood Pressure (units (unknown) date) Location Lt unknown) brachial (unknown) (no (unknown) (unknown) Cardio (units (unkno wn) date) unknown) (unknown) (no (unknown) (unknown) Cervical Spine: (units (unknown) date) normal cervical unknown) lordosis, cervical ROM normal, no cervical (unknown) (no (unknown) (unknown) Chief Complaint (units (unknown) date) unknown) (unknown) (no (unknown) (unknown) Chief Complaint: (units (unknown) date) f/u unknown) dizziness/numbnes s/tingling/anxiet y (unknown) (no (unknown) (unknown) Chronicity: (units (un known) date) acute Qualified unknown) Code(s): M25.511 - Pain in right shoulder; (unknown) (no (unknown) (unknown) Cognition: (units (unk nown) date) normal cognition unknown) (unknown) (no (unknown) (unknown) Const (units (unkno wn) date) unknown) (unknown) (no (unknown) (unknown) : 1995 (units (unknown) date) Acct:[id number] unknown) (unknown) (no (unknown) (unknown) Dept at (units (unkno wn) date) . unknown) (unknown) (no (unknown) (unknown) Details: (units (unkno wn) date) unknown) (unknown) (no (unknown) (unknown) Documented By: (units (unknown) date) Vin Nelson unknown) 07/13/22 1540 (unknown) (no (unknown) (unknown) Does find the (units ( unknown) date) Ashwaganda unknown) supplement to be helpful. She is not interested in (unknown) (no (unknown) (unknown) Effort + (units (unkno wn) date) Inspection: unknown) normal respiratory effort (unknown) (no (unknown) (unknown) Exam Narrative (units (unknown) date) unknown) (unknown) (no (unknown) (unknown) Exam Narrative: (units (unknown) date) unknown) (unknown) (no (unknown) (unknown) Exam (units (unkno wn) date) unknown) (unknown) (no (unknown) (unknown) Eyes (units (unkno wn) date) unknown) (unknown) (no (unknown) (unknown) Family History (units (unknown) date) (Reviewed unknown) 07/16/22 @ 15:59 by CECILE Higgins) (unknown) (no (unknown) (unknown) Family Practice (units (unknown) date) Office Visit unknown) (unknown) (no (unknown) (unknown) Father (units (unknown) date) Cancer unknown) (unknown) (no (unknown) (unknown) [facility]) (unknown) (no (unknown) (unknown) Gait: normal (units (u nknown) date) gait unknown) (unknown) (no (unknown) (unknown) Gene mutation (units ( unknown) date) () unknown) (unknown) (no (unknown) (unknown) General: (units (unkno wn) date) appearance unknown) normal, both eyes and all related structures (unknown) (no (unknown) (unknown) General: (units (unkno wn) date) cooperative, unknown) healthy appearing and no acute distress (unknown) (no (unknown) (unknown) General: no (units (un known) date) rashes or lesions unknown) noted (unknown) (no (unknown) (unknown) General: patient (units [...] date) inspection unknown) (unknown) (no (unknown) (unknown) Height 177.8 cm (units (unknown) date) unknown) (unknown) (no (unknown) (unknown) History of heart (units (unknown) date) disease unknown) (unknown) (no (unknown) (unknown) History of (units (unk nown) date) laparoscopy unknown) (-08/03/20) (unknown) (no (unknown) (unknown) In addition to (units (unknown) date) her chronic low unknown) back pain she now is experiencing pain and (unknown) (no (unknown) (unknown) Intake Note: (units (u nknown) date) unknown) (unknown) (no (unknown) (unknown) Intake performed (units (unknown) date) by: Sofya Benton unknown) (unknown) (no (unknown) (unknown) Intake (units [...] unknown) date) unknown) (unknown) (no (unknown) (unknown) M25.512 - Pain (units (unknown) date) in left shoulder unknown) (unknown) (no (unknown) (unknown) Medical History (units (unknown) date) (Reviewed unknown) 07/16/22 @ 15:59 by CECILE Higgins) (unknown) (no (unknown) (unknown) Medications (units (un known) date) unknown) (unknown) (no (unknown) (unknown) Mental Status: (units (unknown) date) mental status unknown) grossly normal (unknown) (no (unknown) (unknown) Migraine type: (units (unknown) date) unspecified unknown) Status migrainosus presence: without status (unknown) (no (unknown) (unknown) Migraine, (units (unkn own) date) unspecified, not unknown) intractable, without status migrainosus (unknown) (no (unknown) (unknown) Migraine: (units (unkn own) date) Patient does feel unknown) that the higher dose of sumatriptan is more (unknown) (no (unknown) (unknown) Mood: congruent (units (unknown) date) mood unknown) (unknown) (no (unknown) (unknown) Mother Breast (units ( unknown) date) cancer unknown) (unknown) (no (unknown) (unknown) Musc (units (unkno wn) date) unknown) (unknown) (no (unknown) (unknown) Neuro (units (unkno wn) date) unknown) (unknown) (no (unknown) (unknown) Normal range of (units (unknown) date) motion bilateral unknown) shoulders. (unknown) (no (unknown) (unknown) Orders: (units (unkno wn) date) unknown) (unknown) (no (unknown) (unknown) Other: (units (unkno wn) date) unknown) (unknown) (no (unknown) (unknown) Oxygen Delivery (units (unknown) date) Method room air unknown) (unknown) (no (unknown) (unknown) PFSH (units (unkno wn) date) unknown) (unknown) (no (unknown) (unknown) Patient also (units (un known) date) requests that I unknown) reorder a referral that had previously been ordered (unknown) (no (unknown) (unknown) Patient did try (units (unknown) date) the Lexapro and unknown) although it may have helped slightly for anxiety (unknown) (no (unknown) (unknown) Patient reports (units (unknown) date) that she is unknown) currently feeling much better. Her dizziness has (unknown) (no (unknown) (unknown) Patient: (units (unkno wn) date) Anita Reynoso R unknown) MR#: [id number] (unknown) (no (unknown) (unknown) Penicillins (units (un known) date) Adverse Reaction unknown) (Mild, Verified 07/13/22 15:41) (unknown) (no (unknown) (unknown) Plan (units (unkno wn) date) unknown) (unknown) (no (unknown) (unknown) Position Sitting (units (unknown) date) unknown) (unknown) (no (unknown) (unknown) Psych (units (unkno wn) date) unknown) (unknown) (no (unknown) (unknown) Pulse 82 (units (unkno wn) date) unknown) (unknown) (no (unknown) (unknown) Pulse Oximetry (units (unknown) date) (%) 99 unknown) (unknown) (no (unknown) (unknown) Pulse Source (units (u nknown) date) Monitor unknown) (unknown) (no (unknown) (unknown) Qualifiers: (units (un known) date) unknown) (unknown) (no (unknown) (unknown) ROS (units (unkno wn) date) unknown) (unknown) (no (unknown) (unknown) Rate: regular (units ( unknown) date) rate unknown) (unknown) (no (unknown) (unknown) Reason For Visit (units (unknown) date) unknown) (unknown) (no (unknown) (unknown) Referral (units (unkno wn) date) Occupational unknown) Therapy M25.511 - Pain in right shoulder, M25.512 - Pain (unknown) (no (unknown) (unknown) Referral (units (unkno wn) date) Physical Therapy unknown) M54.50 - Low back pain, unspecified (unknown) (no (unknown) (unknown) Referrals (units (unkn own) date) unknown) (unknown) (no (unknown) (unknown) Resp (units (unkno wn) date) unknown) (unknown) (no (unknown) (unknown) Sciatic [...] (unknown) Surgical History (units (unknown) date) (Reviewed unknown) 07/16/22 @ 15:59 by CECILE Higgins) (unknown) (no (unknown) (unknown) This note may (units ( unknown) date) have been all or unknown) partially generated using voice recognition (unknown) (no (unknown) (unknown) Thoracic/Lumbar (units (unknown) date) Spine: thoracic unknown) and lumbar spine normal to inspection, no (unknown) (no (unknown) (unknown) Thought Content: (units (unknown) date) normal unknown) (unknown) (no (unknown) (unknown) Thought Process: (units (unknown) date) normal unknown) (unknown) (no (unknown) (unknown) Tobacco + (units (unkn own) date) Substance Use unknown) (unknown) (no (unknown) (unknown) Tobacco Status (units (unknown) date) unknown) (unknown) (no (unknown) (unknown) Upper (units (unkno wn) date) back/neck/bilater unknown) al shoulder pain and low back pain: Limited examination (unknown) (no (unknown) (unknown) Visit Reasons: (units (unknown) date) f/u medication unknown) (unknown) (no (unknown) (unknown) Vitals (units (unkno wn) date) unknown) (unknown) (no (unknown) (unknown) Weight 78.131 kg (units (unknown) date) unknown) (unknown) (no (unknown) (unknown) away and was (units (u nknown) date) unable to get unknown) into the ENT at [facility]. Pt also states she stopped (unknown) (no (unknown) (unknown) bilateral upper (units (unknown) date) extremity unknown) weakness or pain, possible tingling occasionally in (unknown) (no (unknown) (unknown) effective. (units (unk nown) date) Continue regimen. unknown) (unknown) (no (unknown) (unknown) for physical (units (u nknown) date) therapy for low unknown) back pain. She believes the referral is . (unknown) (no (unknown) (unknown) have occurred. (units (unknown) date) If there are any unknown) questions, please contact the Medical Records (unknown) (no (unknown) (unknown) have resolved. (units (unknown) date) unknown) (unknown) (no (unknown) (unknown) having her (units (unk nown) date) perform modified unknown) Milly maneuver in case her symptoms were due at (unknown) (no (unknown) (unknown) in left (units (unkno wn) date) shoulder, M54.2 - unknown) Cervicalgia, M54.9 - Dorsalgia, unspecified (unknown) (no (unknown) (unknown) issue was (units (unkn own) date) previously unknown) evaluated so we deferred new evaluation. Agree with PT/OT (unknown) (no (unknown) (unknown) issues for which (units (unknown) date) we saw her about unknown) 5 weeks ago. (unknown) (no (unknown) (unknown) it was (units (unkno wn) date) interfering with unknown) sleep so she stopped it. She has been taking ashwaganda (unknown) (no (unknown) (unknown) least in part to (units (unknown) date) BPPV. Meclizine unknown) was ordered and we increased her dose of (unknown) (no (unknown) (unknown) may occur. (units (unk nown) date) Occasional unknown) wrong-word or 'sound-alike' substitutions may have (unknown) (no (unknown) (unknown) migrainosus (units (un known) date) Intractability: unknown) not intractable Qualified Code(s): G43.909 (unknown) (no (unknown) (unknown) muscular (units (unkno wn) date) tenderness and no unknown) cervical spinal tenderness (unknown) (no (unknown) (unknown) numbness (units (unkno wn) date) sensation unknown) localized to left and right shoulder blade areas. No (unknown) (no (unknown) (unknown) occurred due to (units (unknown) date) the inherent unknown) limitations of voice recognition software. Please (unknown) (no (unknown) (unknown) of upper back (units ( unknown) date) neck and unknown) bilateral shoulder area was unremarkable. Low back pain (unknown) (no (unknown) (unknown) paraspinal (units (unk nown) date) tenderness and no unknown) thoracic spinal tenderness (unknown) (no (unknown) (unknown) read the note (units ( unknown) date) carefully and unknown) recognize, using context, where these substitutions (unknown) (no (unknown) (unknown) received a call (units (unknown) date) back from their unknown) offices but she is not concerned as her symptoms (unknown) (no (unknown) (unknown) referral and (units (u nknown) date) this was ordered. unknown) Follow-up as needed if refractory or for new or (unknown) (no (unknown) (unknown) refill less than (units (unknown) date) 2 seconds, radial unknown) pulses 2+/2+. (unknown) (no (unknown) (unknown) resolved. 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 (unknown) (no (unknown) (unknown) software. (units (unkn own) date) Although every unknown) effort is made to edit content, retail performance specialist errors (unknown) (no (unknown) (unknown) sumatriptan as (units (unknown) date) well. We also unknown) started Lexapro for her anxiety. (unknown) (no (unknown) (unknown) sumatriptan (units (un known) date) succinate 50 mg unknown) tablet See Rx Instructions PO .COMPLEX #10 tabs (unknown) (no (unknown) (unknown) taking lexapro x (units (unknown) date) 2 weeks ago due unknown) to lack of sleep. (unknown) (no (unknown) (unknown) the left upper (units (unknown) date) extremity. Not unknown) much neck pain. No injury but believes this is a (unknown) (no (unknown) (unknown) trying another (units (unknown) date) psychotropic unknown) medication. Follow-up as needed for new or (unknown) (no (unknown) (unknown) which helps with (units (unknown) date) anxiety and unknown) sleep. (unknown) (no (unknown) (unknown) worsening (units (unkn own) date) symptoms or other unknown) concerns. (unknown) (no (unknown) (unknown) worsening (units (unkn own) date) symptoms. unknown) Social History date description facility 2022-06-09 00:00 Never smoked tobacco (finding) [facility] 2022-07-13 00:00 Never smoked tobacco (finding) [facility] Vital Signs date measurement value units 2022-06-09 00:00 BMI 24.0 kg/m2 2022-06-09 00:00 BP_diastolic 60 mmHg 2022-06-09 00:00 BP_systolic 90 mmHg 2022-06-09 00:00 heart_rate 73 /min 2022-06-09 00:00 height_metric 177.8 cm 2022-06-09 00:00 height_standard 70 in 2022-06-09 00:00 o2_saturation 98 % 2022-06-09 00:00 weight_metric 76.2 kg 2022-06-09 00:00 weight_standard 167.99 lb 2022-07-13 00:00 BMI 24.7 kg/m2 2022-07-13 00:00 BP_diastolic 62 mmHg 2022-07-13 00:00 BP_systolic 104 mmHg 2022-07-13 00:00 heart_rate 82 /min 2022-07-13 00:00 height_metric 177.8 cm 2022-07-13 00:00 height_standard 70 in 2022-07-13 00:00 o2_saturation 99 % 2022-07-13 00:00 weight_metric 78.13 kg 2022-07-13 00:00 weight_standard 172.25 lb
== END 2022-08-04 11:00 | disposition left against medical advice (07) ==
LOC: ED 09:43
DX: Z53.29 Procedure and treatment not carried out because of patient's decision for other reasons (principal)

== ENCOUNTER 2023-02-07 11:16 | Outpatient (CLI) | payer OTHER ==
[2023-02-07 11:30] LABS: BASOPHILS # (AUTO) 0.1 10^3/uL (0.0-0.1); BASOPHILS % (AUTO) 0.8 %; EOSINOPHILS # (AUTO) 0.2 10^3/uL (0.0-0.7); EOSINOPHILS % (AUTO) 3.1 %; HCT - HEMATOCRIT 40.7 % (37.0-47.0); HGB - HEMOGLOBIN 13.5 g/dL (12.0-16.0); LYMPHOCYTES # (AUTO) 2.2 10^3/uL (1.5-3.5); LYMPHOCYTES % (AUTO) 33.9 %; MEAN CORPUSCULAR HEMOGLOBIN 29.2 pg (27.0-31.0); MEAN CORPUSCULAR HGB CONC 33.2 g/dL (32.0-36.0); MEAN CORPUSCULAR VOLUME 87.9 fL (81.0-99.0); MEAN PLATELET VOLUME 9.6 fL (7.9-10.8); MONOCYTES # (AUTO) 0.4 10^3/uL (0.0-1.0); MONOCYTES % (AUTO) 6.4 %; NEUTROPHILS # (AUTO) 3.6 10^3/uL (1.5-6.6); NEUTROPHILS % (AUTO) 55.5 %; PLT - PLATELET COUNT 249 10^3/uL (130-450); RED BLOOD COUNT 4.63 10^6/uL (4.20-5.40); RED CELL DISTRIBUTION WIDTH 11.9 % (12.0-15.0); WHITE BLOOD COUNT 6.4 x10^3/uL (4.8-10.8)
[2023-02-07 12:04] LABS: THYROID STIMULATING HORMONE 1.22 uIU/mL (0.34-5.60)
[2023-02-07 12:06] LABS: FREE T4 (FREE THYROXINE) 0.78 ng/dL (0.58-1.64)
== END 2023-02-07 11:17 | disposition home or self-care (01) ==
LOC: LAB 11:16
PROVIDERS: ATTEND Nurse Practitioner Obstetrics & Gynecology
DX: N92.6 Irregular menstruation, unspecified (principal); Z31.41 Encounter for fertility testing
CPT/HCPCS: 36415; 84144; 84439; 84443; 85025

== ENCOUNTER 2023-03-10 09:22 | Outpatient (CLI) | payer OTHER | END 2023-03-10 09:23 | disposition home or self-care (01) | LOC: LAB 09:22 | PROVIDERS: ATTEND Nurse Practitioner Obstetrics & Gynecology | DX: Z31.41 Encounter for fertility testing (principal) | CPT/HCPCS: 36415; 84144 ==

== ENCOUNTER 2023-03-14 11:57 | Outpatient (CLI) | payer OTHER | END 2023-03-14 11:58 | disposition home or self-care (01) | LOC: LAB 11:57 | PROVIDERS: ATTEND Nurse Practitioner Obstetrics & Gynecology | DX: Z31.41 Encounter for fertility testing (principal) | CPT/HCPCS: 36415; 84144 ==

== ENCOUNTER 2023-04-11 09:49 | Outpatient (CLI) | payer OTHER | END 2023-04-11 09:50 | disposition home or self-care (01) | LOC: LAB.N 09:49 | PROVIDERS: ATTEND Nurse Practitioner Obstetrics & Gynecology | DX: Z31.41 Encounter for fertility testing (principal) | CPT/HCPCS: 36415; 84144 ==

== ENCOUNTER 2023-04-15 15:30 | Outpatient (CLI) | payer OTHER | END 2023-04-15 15:31 | disposition home or self-care (01) | LOC: LAB.N 15:30 | PROVIDERS: ATTEND Nurse Practitioner Obstetrics & Gynecology | DX: Z31.41 Encounter for fertility testing (principal) | CPT/HCPCS: 36415; 84144 ==

== ENCOUNTER 2023-06-10 08:18 | Outpatient (CLI) | payer OTHER | END 2023-06-10 08:19 | disposition home or self-care (01) | LOC: LAB.N 08:18 | PROVIDERS: ATTEND Obstetrics & Gynecology | DX: Z31.69 Encounter for other general counseling and advice on procreation (principal) | CPT/HCPCS: 36415; 84144; 84146; 86762 ==

== ENCOUNTER 2023-06-15 12:13 | Outpatient (CLI) | payer OTHER | END 2023-06-15 12:14 | disposition home or self-care (01) | LOC: LAB.N 12:13 | PROVIDERS: ATTEND Obstetrics & Gynecology | DX: Z31.69 Encounter for other general counseling and advice on procreation (principal) | CPT/HCPCS: 36415; 84144; 84702 ==